=== PATIENT | male | born 1935 | race Caucasian/White ===

== ENCOUNTER → 2017-05-21 | Outpatient (CLI) | payer MEDICARE ==
[2017-05-21 17:40] LABS: HCT 47.2 % (39.0-53.0); HGB 15.1 gm/dL (13.0-17.5); MCH 32.6 pg (25.0-35.0); MCHC 31.9 g/dL (31.0-37.0); MCV 102.1 fL (80.0-100.0); Macrocytosis Slight; Platelet Count 167 k/uL (150-450); RBC 4.63 m/uL (4.30-5.90); RDW 15.1 % (11.5-15.5); WBC 5.8 k/uL (3.8-10.6)
[2017-05-21 17:54] LABS: Potassium 3.2 mmol/L (3.5-5.1)
== END | disposition home or self-care (01) ==
LOC: LABPAT 17:04
PROVIDERS: ATTEND Internal Medicine Gastroenterology
DX: Z01.812 Encounter for preprocedural laboratory examination (principal); I34.0 Nonrheumatic mitral (valve) insufficiency
CPT/HCPCS: 36415; 80051; 82565; 84520; 85027

== ENCOUNTER 2017-05-28 09:56 | Inpatient (IN) | payer MEDICARE ==
[2017-05-28] MEDS ORDERED: LORazepam 2 MG/ML INJ IV STA (10:52)
--- NOTE | 2017-05-28 10:57 | ED ---
General Adult HPI - General Chief complaint: Recheck/Abnormal Lab/Rx Stated complaint: Leg pain Time Seen by Provider: 05/28/17 10:20 Source: patient, RN notes reviewed Mode of arrival: wheelchair - History of Present Illness Initial comments: This is a 81-year-old male who states having foot pain and a right the past 2 weeks now that he has on the left and hurts to walk or to touch it. He denies any fevers chills or sweats he has ever recent history of CHF with now renal insufficiency he was on Lasix and anti-inflammatories with his kidney function apparently has declined. No trauma. He is scheduled for cardiac catheterization tomorrow. He had had edema to both lower extremities but elevation seen to help in the past but today he has a lot of pain. He states this is a 9 out of 10. No history of gout - Related Data Home Medications Medication Instructions Recorded Confirmed Aspirin 81 mg PO BID 06/01/14 05/28/17 Carvedilol [Carvedilol] 3.125 mg PO BID 06/01/14 05/28/17 Losartan/Hydrochlorothiazide 0.5 tab PO Q48H 06/01/14 05/28/17 [Losartan-Hctz 100-25 mg Tab] Multivitamin [Men's Multi-Vitamin] 0.5 tab PO DAILY 06/01/14 05/28/17 Saw [place] 320 mg PO DAILY 06/01/14 05/28/17 Simvastatin [Simvastatin] 40 mg PO Q48H 06/01/14 05/28/17 Krill Oil 1,000 mg PO DAILY 05/25/17 05/28/17 Torsemide [Demadex] 20 mg PO DAILY 05/25/17 05/28/17 Albuterol Nebulized [Ventolin 2.5 mg INHALATION RT-DAILY 05/28/17 05/28/17 Nebulized] Losartan/Hydrochlorothiazide 1 tab PO Q48H 05/28/17 05/28/17 [Losartan-Hctz 100-25 mg Tab] Simvastatin [Zocor] 20 mg PO Q48H 05/28/17 05/28/17 Vitamin B Complex 1 cap PO Q48H 05/28/17 05/28/17 Allergies Allergy/AdvReac Type Severity Reaction Status Date / Time No Known Allergies Allergy Verified 05/28/17 10:41 Review of Systems ROS Statement: Those systems with pertinent positive or pertinent negative responses have been documented in the HPI. ROS Other: All systems not noted in ROS Statement are negative. Past Medical History Past Medical History: Coronary Artery Disease (CAD), Hyperlipidemia, Hypertension, Myocardial Infarction ([place]), Osteoarthritis (OA), Prostate Disorder Additional Past Medical History / Comment(s): HAVING OCC SHORTNESS OF BREATH. SEE DR ALCAZAR H&P. HX BPH; KIDNEY STONE. states his kidney function has decreased. [employer] is the name of his defibrillator. Last Myocardial Infarction Date:: 2013 History of Any Multi-Drug Resistant Organisms: None Reported Past Surgical History: AICD, Bowel Resection, Heart Catheterization With Stent, Orthopedic Surgery Additional Past Surgical History / Comment(s): 03/2013 AICD. RT ROTATOR CUFF, RT KNEE SCOPE. cataract surgery. Past Anesthesia/Blood Transfusion Reactions: No Reported Reaction Date of Last Stent Placement:: 2001 Type of Cardiac Device: AICD Device Placement Date:: 04/17/13 Past Psychological History: No Psychological Hx Reported Smoking Status: Never smoker - Past Family History Mother Family Medical History: Cancer Additional Family Medical History / Comment(s): Breast General Exam - General Exam Comments Initial Comments: This is a well-developed well-nourished awake alert oriented 3 male General appearance: alert, in no apparent distress Head exam: Present: atraumatic, normocephalic, normal inspection Eye exam: Present: normal appearance, PERRL, EOMI. Absent: scleral icterus, conjunctival injection, periorbital swelling ENT exam: Present: normal exam, mucous membranes moist Neck exam: Present: normal inspection. Absent: tenderness, meningismus, lymphadenopathy Respiratory exam: Present: normal lung sounds bilaterally. Absent: respiratory distress, wheezes, rales, rhonchi, stridor Cardiovascular Exam: Present: regular rate, normal rhythm, normal heart sounds. Absent: systolic murmur, diastolic murmur, rubs, gallop, clicks GI/Abdominal exam: Present: soft, normal bowel sounds. Absent: distended, tenderness, guarding, rebound, rigid Extremities exam: Present: full ROM, tenderness, normal capillary refill, pedal edema, other (Erythema noted over the first metatarsal phalangeal joint and great toe.). Absent: joint swelling, calf tenderness Back exam: Present: normal inspection Neurological exam: Present: alert, oriented X3, CN II-XII intact. Absent: normal gait, motor sensory deficit Psychiatric exam: Present: normal affect, normal mood Skin exam: Present: warm, dry, intact, normal color. Absent: rash Course Vital Signs 05/28/17 05/28/17 05/28/17 10:12 12:01 13:29 Temperature 97.1 F L Pulse Rate 90 103 H 96 Respiratory 17 18 16 Rate Blood Pressure 113/73 108/57 97/70 O2 Sat by Pulse 97 94 L 91 L Oximetry 05/28/17 14:14 Temperature Pulse Rate 90 Respiratory 16 Rate Blood Pressure 95/57 O2 Sat by Pulse 96 Oximetry EKG Findings - EKG Results: EKG: interpreted by ERMD (Undetermined rhythm rate 93 QRS 158 daily since QTC of 446/554 left exodeviation nonspecific interventricular block this old lateral changes PVCs are noted.) Medical Decision Making - Medical Decision Making I did discuss the findings with the patient family members over Dr. Weems the patient will be admitted with cardiology consultation. Patient does have renal insufficiency he does have gout he does have elevated troponin and evidence of CHF with elevated BNP. - Lab Data Result diagrams: 05/28/17 11:05 05/28/17 11:05 Lab Results 05/28/17 05/28/17 05/28/17 Range/Units 11:05 11:05 11:05 WBC 10.0 (3.8-10.6) k/uL RBC 4.69 (4.30-5.90) m/uL Hgb 15.1 (13.0-17.5) gm/dL Hct 46.0 (39.0-53.0) % MCV 97.9 (80.0-100.0) fL MCH 32.2 (25.0-35.0) pg MCHC 32.9 (31.0-37.0) g/dL RDW 14.8 (11.5-15.5) % Plt Count 196 (150-450) k/uL Neutrophils % 84 % Lymphocytes % 8 % Monocytes % 6 % Eosinophils % 1 % Basophils % 0 % Neutrophils # 8.4 H (1.3-7.7) k/uL Lymphocytes # 0.8 L (1.0-4.8) k/uL Monocytes # 0.6 (0-1.0) k/uL Eosinophils # 0.1 (0-0.7) k/uL Basophils # 0.0 (0-0.2) k/uL Sodium (137-145) mmol/L Potassium (3.5-5.1) mmol/L Chloride (98-107) mmol/L Carbon Dioxide (22-30) mmol/L Anion Gap mmol/L BUN (9-20) mg/dL Creatinine (0.66-1.25) mg/dL Est GFR (MDRD) Af Amer (>60 ml/min/1.73 sqM) Est GFR (MDRD) Non-Af (>60 ml/min/1.73 sqM) Glucose (74-99) mg/dL Uric Acid (3.5-8.5) mg/dL Calcium (8.4-10.2) mg/dL Magnesium (1.6-2.3) mg/dL Total Bilirubin (0.2-1.3) mg/dL AST (17-59) U/L ALT (21-72) U/L Alkaline Phosphatase (38-126) U/L Total Creatine Kinase 42 L (55-170) U/L CK-MB (CK-2) 0.6 (0.0-2.4) ng/mL CK-MB (CK-2) Rel Index 1.4 Troponin I 0.080 H* (0.000-0.034) ng/mL NT-Pro-B Natriuret Pep 39163 pg/mL Total Protein (6.3-8.2) g/dL Albumin (3.5-5.0) g/dL 05/28/17 Range/Units 11:05 WBC (3.8-10.6) k/uL RBC (4.30-5.90) m/uL Hgb (13.0-17.5) gm/dL Hct (39.0-53.0) % MCV (80.0-100.0) fL MCH (25.0-35.0) pg MCHC (31.0-37.0) g/dL RDW (11.5-15.5) % Plt Count (150-450) k/uL Neutrophils % % Lymphocytes % % Monocytes % % Eosinophils % % Basophils % % Neutrophils # (1.3-7.7) k/uL Lymphocytes # (1.0-4.8) k/uL Monocytes # (0-1.0) k/uL Eosinophils # (0-0.7) k/uL Basophils # (0-0.2) k/uL Sodium 135 L (137-145) mmol/L Potassium 3.6 (3.5-5.1) mmol/L Chloride 89 L (98-107) mmol/L Carbon Dioxide 35 H (22-30) mmol/L Anion Gap 11 mmol/L BUN 74 H (9-20) mg/dL Creatinine 1.57 H (0.66-1.25) mg/dL Est GFR (MDRD) Af Amer 52 (>60 ml/min/1.73 sqM) Est GFR (MDRD) Non-Af 43 (>60 ml/min/1.73 sqM) Glucose 115 H (74-99) mg/dL Uric Acid 13.3 H* (3.5-8.5) mg/dL Calcium 9.3 (8.4-10.2) mg/dL Magnesium 2.1 (1.6-2.3) mg/dL Total Bilirubin 3.9 H (0.2-1.3) mg/dL AST 24 (17-59) U/L ALT 32 (21-72) U/L Alkaline Phosphatase 187 H (38-126) U/L Total Creatine Kinase (55-170) U/L CK-MB (CK-2) (0.0-2.4) ng/mL CK-MB (CK-2) Rel Index Troponin I (0.000-0.034) ng/mL NT-Pro-B Natriuret Pep pg/mL Total Protein 7.0 (6.3-8.2) g/dL Albumin 3.5 (3.5-5.0) g/dL - Radiology Data Radiology results: report reviewed (I did review the imaging there is evidence of cardiomegaly and some small pleural effusions.), image reviewed Disposition Clinical Impression: CHF (congestive heart failure), Acute gout, Elevated troponin, Chronic renal insufficiency Disposition: ADMITTED IP TO THIS [facility] Condition: Stable Referrals: Roland Cuenca MD [Primary Care Provider] - 1-2 days
[2017-05-28 11:26] LABS: Albumin 3.5 g/dL (3.5-5.0); Calcium 9.3 mg/dL (8.4-10.2); Potassium 3.6 mmol/L (3.5-5.1); Total Bilirubin 3.9 mg/dL (0.2-1.3)
[2017-05-28 11:34] LABS: Uric Acid 13.3 mg/dL (3.5-8.5)
--- NOTE | 2017-05-28 11:36 | XR ---
EXAMINATION TYPE: XR chest 2V DATE OF EXAM: 05/28/2017 COMPARISON: Prior chest x-ray March 31, 2014. HISTORY: Cough per order. TECHNIQUE: Frontal and lateral views of the chest are obtained. FINDINGS: There is chronic parenchymal change without suspicious new focal air space opacity or pneu mothorax seen. There are new tiny bilateral pleural effusions with blunting of posterior costophrenic angles The cardiac silhouette size is enlarged and more prominent versus prior. There is redemonstr ation of dual-lead pacemaker/AICD The osseous structures are demineralized. Metallic anchor right humeral head is redemonstrated. IMPRESSION: More prominent cardiomegaly with new tiny bilateral pleural effusions.
[2017-05-28 11:52] LABS: Basophils % (A) 0 %; Eosinophils # (A) 0.1 k/uL (0-0.7); Eosinophils % (A) 1 %; HGB 15.1 gm/dL (13.0-17.5); Lymphocytes # (A) 0.8 k/uL (1.0-4.8); Lymphocytes % (A) 8 %; MCH 32.2 pg (25.0-35.0); MCHC 32.9 g/dL (31.0-37.0); MCV 97.9 fL (80.0-100.0); Mean Platelet Volume 9.8; Monocytes # (A) 0.6 k/uL (0-1.0); Monocytes % (A) 6 %; Neutrophils # (A) 8.4 k/uL (1.3-7.7); Neutrophils % (A) 84 %; Platelet Count 196 k/uL (150-450); RBC 4.69 m/uL (4.30-5.90); RDW 14.8 % (11.5-15.5)
[2017-05-28 11:55] LABS: Creatine Kinase MB 0.6 ng/mL (0.0-2.4)
[2017-05-28 12:05] LABS: Troponin I 0.08 ng/mL (0.000-0.034)
[2017-05-28] MEDS ORDERED: methylPREDNISolone SOD SUCCI 125 MG/2 ML VIAL IV STA (14:56)
[2017-05-28] MEDS ORDERED: SODIUM CHLORIDE 0.9% 1,000 ML IV SCH (15:00)
[2017-05-28] MEDS ORDERED: ATORVASTATIN 10 MG TAB PO SCH (15:00)
[2017-05-28] MEDS ORDERED: LOSARTAN-HCTZ 50-12.5 MG 1 EACH TAB PO SCH (15:00)
[2017-05-28] MEDS ORDERED: TORSEMIDE 20 MG TAB PO SCH ×2 (16:00→21:00)
[2017-05-28 18:56] VITALS: BMI 23.1
[2017-05-28 20:09] LABS: Calcium 8.9 mg/dL (8.4-10.2); Potassium 3.1 mmol/L (3.5-5.1)
[2017-05-28] MEDS: ASPIRIN 81 MG PO SCH (20:26)
[2017-05-28] MEDS: CARVEDILOL 3.125 MG TAB PO SCH (20:26)
[2017-05-29] MEDS: CARVEDILOL 3.125 MG TAB PO SCH ×2 (06:30→15:13)
[2017-05-29] MEDS: predniSONE 50 MG TAB PO SCH (06:31)
[2017-05-29 06:37] LABS: Calcium 8.9 mg/dL (8.4-10.2)
[2017-05-29] MEDS ORDERED: Potassium Replacement Protocol 1 EACH MISC MISCELLANE PRN (06:48)
[2017-05-29] MEDS: ASPIRIN 81 MG PO SCH ×2 (07:07→19:49)
[2017-05-29] MEDS: POTASSIUM CHLORIDE ER 20 MEQ TAB.ER PO SCH ×2 (07:07→11:18)
[2017-05-29] MEDS: BENZOCAINE SPRAY 1 SPRAY CAN TOPICAL ONE ×2 (07:28→07:31)
[2017-05-29] MEDS ORDERED: SODIUM CHLORIDE 0.9% 500 ML IV ONE (07:29)
[2017-05-29] MEDS ORDERED: MIDAZOLAM 2 MG/2 ML VIAL IVP ONE (07:31)
--- NOTE | 2017-05-29 08:39 | ECHOT ---
TRANSESOPHAGEAL ECHOCARDIOGRAM INDICATION: Mitral regurgitation in a patient with class 4 congestive heart failure. PROCEDURE NOTE: After obtaining informed consent, transesophageal echocardiogram was performed in left lateral position using an Omni plane probe. Local and IV sedation were obtained using Xylocaine spray and intravenous Versed. Patient tolerated the procedure well without any obvious immediate complications. Patient received moderate conscious sedation and total sedation time was 15 minutes. FINDINGS: 1. MITRAL VALVE: Mitral valve shows poor coaptation and moderate to severe mitral regurgitation. Mild aortic valve is a trileaflet valve. There is mild aortic regurgitation noted. There is mild tricuspid regurgitation noted. AICD leads are noted in the right side of the heart. 2. Left ventricle appears enlarged, shows diffuse global hypokinesis with severe LV systolic dysfunction with an ejection fraction of around 15%. 3. Left atrium and the right atrium appear enlarged. The right ventricle has RV systolic function that is diminished. 4. Interatrial septum, there is no evidence of left to right shunt by color-flow Doppler or [id number] shunt by agitated contrast study. CONCLUSIONS: 1. Severe left ventricular systolic dysfunction. 2. Moderate to severe mitral regurgitation. PLAN: I am going to hold off on cardiac catheterization at this time as I am not sure how much the patient would benefit from mitral valve clip at this time. I am first going to send him for another and if he is indeed a candidate for mitral clip, we may then do a heart catheterization at that time. Otherwise, will unnecessarily be exposing him to the risk of contrast induced nephropathy. I discussed these issues with the patient and family. They understand and are agreement with the plans. MMODL / IJN: [id number] /
[2017-05-29] MEDS: ALBUTEROL NEBULIZED 2.5 MG/3 ML INHALATION SCH (09:21)
[2017-05-29] MEDS: SODIUM CHLORIDE 0.9% 1,000 ML IV SCH (10:39)
[2017-05-29] MEDS: ATORVASTATIN 20 MG TAB PO SCH (10:41)
--- NOTE | 2017-05-29 13:14 | P.HPIM ---
History of Present Illness H&P Date: 05/29/17 Chief Complaint: Left foot pain 81-year-old male who presented to the emergency room with a chief complaint of left foot pain. The history is taken mostly from the patient's and daughter who are at the bedside. Patients states that the patient began having increased lower extremity edema and redness a few weeks ago , along with pain in the right foot. Patient's states that she had her and elevate his extremities on pillows and the swelling, pain, and erythema improved. However, she states that on Sunday the patient started having pain and redness of the left foot and ankle. She states that they attempted to elevate the extremity on pillows but it did not improve the patient 's pain and the redness seemed to extend into his great toe. Family also reports that the patient has been having difficulty walking at home secondary to pain in his left foot. The patient has a history of severe LV dysfunction with mitral regurgitation. The patient has previously been on Lasix but was switched to Demadex as he was refractory to Lasix. He has a history of proximal atrial fibrillation but is not on long-term anticoagulation. He has a history of hyperlipidemia, hypertension, BPH, and osteoarthritis. The patient has had a permanent pacemaker/AICD inserted in 2013. He has a history of myocardial infarction and has underwent cardiac catheterization with stent placement. Chest x-ray: Cardiomegaly with tiny bilateral pleural effusions Laboratory data: WBC 10.0. Hemoglobin 15.1. Platelet count 196. Sodium 135. Potassium 3.6. BUN 74. Creatinine 1.57. GFR 43. Glucose 115. Magnesium 2.1. Uric acid: 13.3 Troponins: 0.080, 0.074, 0.061 BNP: 22,300 The patient was admitted to the hospital under the care of Dr. Cuenca. Consultations were placed to cardiology. The patient underwent transesophageal echocardiogram this morning with Dr. Gutierrez which revealed moderate to severe mitral regurgitation. Mild aortic regurgitation. Mild tricuspid regurgitation. Enlarged left ventricle with diffuse global hypokinesis and severe LV dysfunction with an ejection fraction around 15%. Enlarged left atrium and right atrium. Diminished function of the right ventricle. Review of Systems GENERAL: Patient denies fever. Denies chills. EYES: Denies blurred vision. Denies vision changes. Denies eye pain. EARS, NOSE, MOUTH, & THROAT: Denies headache. Denies sore throat. Denies ear pain. RESPIRATORY: Positive for shortness of breath. Denies cough. Denies sputum production. Denies hemoptysis. CARDIOVASCULAR: Denies chest pain or pressure. Denies palpitations. Denies arrhythmias. GASTROINTESTINAL: Positive for decreased appetite. Denies abdominal pain. Denies diarrhea. Denies constipation. Denies nausea. Denies vomiting. Denies heartburn. Denies blood in the stool. GENITOURINARY: Denies urinary frequency. Denies burning. Denies dysuria. Denies cloudy urine. Denies blood in the urine. MUSCULOSKELETAL: Positive for left foot and ankle pain. Denies myalgias. Denies decreased range of motion beyond patients baseline. INTEGUMENTARY: Positive for erythema to left ankle and great toe. Positive for recent bilateral lower extremity edema. Denies pruitis. Denies rash. PSYCHIATRIC: Denies suicidal or homicial ideations. ENDOCRINE: Denies weight change. Denies polydipsia. Denies polyuria. HEMATOLOGIC: Denies bleeding disorders. Past Medical History Past Medical History: Coronary Artery Disease (CAD), Hyperlipidemia, Hypertension, Myocardial Infarction ([place]), Osteoarthritis (OA), Prostate Disorder Additional Past Medical History / Comment(s): HAVING OCC SHORTNESS OF BREATH. SEE DR ALCAZAR H&P. HX BPH; KIDNEY STONE. states his kidney function has decreased. [employer] is the name of his defibrillator. Last Myocardial Infarction Date:: 2013 History of Any Multi-Drug Resistant Organisms: None Reported Past Surgical History: AICD, Bowel Resection, Heart Catheterization With Stent, Orthopedic Surgery Additional Past Surgical History / Comment(s): 03/2013 AICD. RT ROTATOR CUFF, RT KNEE SCOPE. cataract surgery. Past Anesthesia/Blood Transfusion Reactions: No Reported Reaction Date of Last Stent Placement:: 2001 Type of Cardiac Device: AICD Device Placement Date:: 04/17/13 Past Psychological History: No Psychological Hx Reported Smoking Status: Never smoker Past Alcohol Use History: Rare Past Drug Use History: None Reported - Past Family History Mother Family Medical History: Cancer Additional Family Medical History / Comment(s): Breast Medications and Allergies Home Medications Medication Instructions Recorded Confirmed Type Aspirin 81 mg PO BID 06/01/14 05/28/17 History Carvedilol [Carvedilol] 3.125 mg PO BID 06/01/14 05/28/17 History Losartan/Hydrochlorothiazide 0.5 tab PO Q48H 06/01/14 05/28/17 History [Losartan-Hctz 100-25 mg Tab] Multivitamin [Men's Multi-Vitamin] 0.5 tab PO DAILY 06/01/14 05/28/17 History Saw [place] 320 mg PO DAILY 06/01/14 05/28/17 History Simvastatin [Simvastatin] 40 mg PO Q48H 06/01/14 05/28/17 History [place] 1,000 mg PO DAILY 05/25/17 05/28/17 History Torsemide [Demadex] 20 mg PO DAILY 05/25/17 05/28/17 History Albuterol Nebulized [Ventolin 2.5 mg INHALATION RT-DAILY 05/28/17 05/28/17 History Nebulized] Losartan/Hydrochlorothiazide 1 tab PO Q48H 05/28/17 05/28/17 History [Losartan-Hctz 100-25 mg Tab] Simvastatin [Zocor] 20 mg PO Q48H 05/28/17 05/28/17 History Vitamin B Complex 1 cap PO Q48H 05/28/17 05/28/17 History Allergies Allergy/AdvReac Type Severity Reaction Status Date / Time No Known Allergies Allergy Verified 05/28/17 10:41 Physical Exam Vitals: Vital Signs Temp Pulse Pulse Pulse Resp BP BP 05/29/17 11:01 16 05/29/17 09:15 63 16 89/59 05/29/17 09:00 52 L 16 88/57 05/29/17 08:45 61 16 85/56 05/29/17 08:30 56 L 12 91/56 05/29/17 08:24 64 18 05/29/17 08:15 64 10 L 94/61 05/29/17 08:04 63 18 87/57 05/29/17 08:00 65 18 82/54 05/29/17 07:56 70 16 80/60 05/29/17 07:53 74 18 86/53 05/29/17 07:50 73 16 89/55 05/29/17 07:44 79 16 90/62 05/29/17 07:41 76 16 88/70 05/29/17 07:38 74 16 87/61 05/29/17 07:35 72 18 88/63 05/29/17 07:32 76 18 92/63 05/29/17 07:28 76 18 104/71 05/29/17 04:00 97.5 F L 56 L 16 104/64 05/29/17 00:00 71 16 100/60 05/28/17 20:00 97.0 F L 79 16 90/58 05/28/17 18:14 98.1 F 101 H 18 97/72 05/28/17 16:45 97 F L 96 18 116/62 05/28/17 16:30 96 16 98/56 05/28/17 15:01 97.1 F L 96 18 107/82 05/28/17 14:14 90 16 95/57 05/28/17 13:29 96 16 97/70 05/28/17 12:01 103 H 18 108/57 Pulse Ox 05/29/17 11:01 05/29/17 09:15 100 05/29/17 09:00 100 05/29/17 08:45 100 05/29/17 08:30 98 05/29/17 08:24 05/29/17 08:15 97 05/29/17 08:04 97 05/29/17 08:00 97 05/29/17 07:56 99 05/29/17 07:53 98 05/29/17 07:50 95 05/29/17 07:44 98 05/29/17 07:41 98 05/29/17 07:38 95 05/29/17 07:35 97 05/29/17 07:32 97 05/29/17 07:28 97 05/29/17 04:00 98 05/29/17 00:00 94 L 05/28/17 20:00 93 L 05/28/17 18:14 92 L 05/28/17 16:45 94 L 05/28/17 16:30 100 05/28/17 15:01 96 05/28/17 14:14 96 05/28/17 13:29 91 L 05/28/17 12:01 94 L Intake and Output 05/28/17 05/29/17 05/29/17 22:59 06:59 14:59 Intake Total 250 Balance 250 Intake: IV 250 Other: Voiding Method Urinal Urinal Urinal Diaper Diaper Diaper # Voids 1 1 1 Weight 71 kg 71 kg GENERAL: This is a 81-year-old male in no apparent distress at the time of examination. Pleasant and cooperative. HEENT: Head is atraumatic, normocephalic. Pupils are equal, round, and reactive to light. Sclerae anicteric. Conjunctivae are clear. Mucus membranes of the mouth are moist. Neck is supple. RESPIRATORY: Equal bilaterally with rales noted to bilateral bases. No wheezing noted. No use of accessory muscles. Patient maintaining oxygen saturation greater than 92% on 3 L. No chest wall tenderness is noted on palpation or with deep breathing. CARDIOVASCULAR: Regular rate and rhythm. S1 and S2 noted. Systolic murmur noted. Mild JVD. No S3 or S4 noted. GASTROINTESTINAL: No distention noted. Abdomen soft and round. Normal active bowel sounds auscultated x 4 quadrants. No pain or tenderness noted upon palpation. INTEGUMENTARY: Erythema noted to left ankle and left great toe. No cyanosis. No jaundice. No rashes noted. No cellulitis noted. EXTREMITIES: 1+ peripheral pulses. Trace bilateral lower extremity edema. No calf tenderness noted. NEUROLOGIC: Cranial nerves II-XII intact. PSYCHIATRIC: Awake, alert, and oriented X 3. Appropriate affect. Intact judgement and insight. Results CBC & Chem 7: 05/28/17 11:05 05/29/17 05:50 Labs: Abnormal Lab Results - Last 24 Hours (Table) 05/28/17 05/28/17 05/28/17 Range/Units 11:05 11:05 19:32 Neutrophils # 8.4 H (1.3-7.7) k/uL Lymphocytes # 0.8 L (1.0-4.8) k/uL Sodium (137-145) mmol/L Potassium (3.5-5.1) mmol/L Chloride (98-107) mmol/L Carbon Dioxide (22-30) mmol/L BUN (9-20) mg/dL Creatinine (0.66-1.25) mg/dL Glucose (74-99) mg/dL Troponin I 0.080 H* 0.074 H* (0.000-0.034) ng/mL 05/28/17 05/29/17 05/29/17 Range/Units 19:32 05:50 06:01 Neutrophils # (1.3-7.7) k/uL Lymphocytes # (1.0-4.8) k/uL Sodium 134 L 135 L (137-145) mmol/L Potassium 3.1 L 3.0 L* (3.5-5.1) mmol/L Chloride 90 L 90 L (98-107) mmol/L Carbon Dioxide 31 H 33 H (22-30) mmol/L BUN 74 H 77 H (9-20) mg/dL Creatinine 1.40 H 1.40 H (0.66-1.25) mg/dL Glucose 169 H 149 H (74-99) mg/dL Troponin I 0.061 H* (0.000-0.034) ng/mL Thrombosis Risk Factor Assmnt - Choose All That Apply Any of the Below Risk Factors Present?: Yes Other Risk Factors: Yes Each Risk Factor Represents 3 Points: Age 75 years or older Thrombosis Risk Factor Assessment Total Risk Factor Score: 3 Thrombosis Risk Factor Assessment Level: Moderate Risk Assessment and Plan Plan: ASSESSMENT: Acute exacerbation of systolic congestive heart failure, BNP 22,300, ejection fraction 15% Acute gout of left great toe and ankle, uric acid 13.3 Elevated troponins: 0.080, 0.074, 0.061, likely secondary to CHF exacerbation, no complaints of chest pain or pressure, cardiology following Moderate to severe mitral regurgitation, s/p SUMAN 05/29/2017 Hypokalemia, secondary to diuretic therapy Chronic kidney disease, stage III, GFR 43 on admission Paroxysmal atrial fibrillation, not on long-term anticoagulation as patient declined therapy History of permanent pacemaker/AICD insertion in 2013 Essential hypertension Hyperlipidemia Coronary artery disease with previous stent placement Benign prostatic hyperplasia PLAN: Dr. Parker recommends holding off on cardiac catheterization at this time and sending patient for a second opinion at [facility] to determine if patient is a candidate for mitral valve clip procedure Replace potassium per protocol Continue prednisone for gout Patient's family is requesting patient be placed on allopurinol. Educated family that allopurinol is not for use in an acute gouty attack. Patient will be placed on allopurinol when acute gout has improved and will continue prednisone at this time Consult physical therapy and occupational therapy secondary to generalized weakness Home meds as appropriate Monitor labs GI prophylaxis: Protonix 40 mg PO Daily DVT prophylaxis: Venodyne's to bilateral lower extremities Monitor vital signs and address as appropriate Discharge planning: Patient to return home when stable Further recommendations pending patient's course Nurse practitioner note has been reviewed by physician. Signing provider agrees with the documented findings, assessment, and plan of care.
[2017-05-29] MEDS ORDERED: POTASSIUM CHLORIDE ER 20 MEQ TAB.ER PO STA (14:38)
[2017-05-29] MEDS: TORSEMIDE 20 MG TAB PO SCH (14:48)
[2017-05-29] MEDS: LOSARTAN-HCTZ 50-12.5 MG 1 EACH TAB PO SCH (14:48)
[2017-05-30] MEDS: SODIUM CHLORIDE 0.9% 1,000 ML IV SCH (01:52)
[2017-05-30] MEDS: PANTOPRAZOLE 40 MG TABLET PO SCH (06:11)
[2017-05-30] MEDS: CARVEDILOL 3.125 MG TAB PO SCH ×2 (06:11→17:24)
[2017-05-30 06:53] LABS: Calcium 8.7 mg/dL (8.4-10.2); Potassium 4.2 mmol/L (3.5-5.1)
[2017-05-30] MEDS ORDERED: ATORVASTATIN 10 MG TAB PO SCH (09:00)
[2017-05-30] MEDS ORDERED: LOSARTAN-HCTZ 50-12.5 MG 1 EACH TAB PO SCH (09:00)
[2017-05-30] MEDS ORDERED: ALBUTEROL NEBULIZED 2.5 MG/3 ML INHALATION PRN (09:17)
[2017-05-30] MEDS: ALBUTEROL NEBULIZED 2.5 MG/3 ML INHALATION SCH (09:18)
--- NOTE | 2017-05-30 10:54 | P.DS ---
Providers Date of admission: 05/28/17 14:52 Expected date of discharge: 05/30/17 Attending physician: Roland Cuenca Consults: 05/28/17 14:49 Consult Physician Routine Consulting Provider: Chirag Gutierrez Consult Reason/Comments: CHF, elevated troponin, chronic renal insufficiency Do you want consulting provider notified?: Yes Primary care physician: Roland Cuenca [facility] Course: 81-year-old male who presented to the emergency room with a chief complaint of left foot pain. The history is taken mostly from the patient's and daughter who are at the bedside. Patients states that the patient began having increased lower extremity edema and redness a few weeks ago , along with pain in the right foot. Patient's states that she had her and elevate his extremities on pillows and the swelling, pain, and erythema improved. However, she states that on Sunday the patient started having pain and redness of the left foot and ankle. She states that they attempted to elevate the extremity on pillows but it did not improve the patient 's pain and the redness seemed to extend into his great toe. Family also reports that the patient has been having difficulty walking at home secondary to pain in his left foot. The patient has a history of severe LV dysfunction with mitral regurgitation. The patient has previously been on Lasix but was switched to Demadex as he was refractory to Lasix. He has a history of proximal atrial fibrillation but is not on long-term anticoagulation. He has a history of hyperlipidemia, hypertension, BPH, and osteoarthritis. The patient has had a permanent pacemaker/AICD inserted in 2013. He has a history of myocardial infarction and has underwent cardiac catheterization with stent placement. Chest x-ray: Cardiomegaly with tiny bilateral pleural effusions Laboratory data: WBC 10.0. Hemoglobin 15.1. Platelet count 196. Sodium 135. Potassium 3.6. BUN 74. Creatinine 1.57. GFR 43. Glucose 115. Magnesium 2.1. Uric acid: 13.3 Troponins: 0.080, 0.074, 0.061 BNP: 22,300 The patient was admitted to the hospital under the care of Dr. Cuenca. Consultations were placed to cardiology. The patient underwent transesophageal echocardiogram this morning with Dr. Gutierrez which revealed moderate to severe mitral regurgitation. Mild aortic regurgitation. Mild tricuspid regurgitation. Enlarged left ventricle with diffuse global hypokinesis and severe LV dysfunction with an ejection fraction around 15%. Enlarged left atrium and right atrium. Diminished function of the right ventricle. Dr. Gutierrez recommends holding off on cardiac catheterization at this time and sending patient for a second opinion at [facility] to determine if patient is a candidate for mitral valve clip procedure. The patient was started on prednisone orally for his gout. His redness and pain has improved, but not resolved at this time. The patient will be started on Allopurinol Friday June 02, 2017. The patient was deemed stable for discharge per Dr. Cuenca. A prescription was sent to the patient's preferred pharmacy for a prednisone taper of 40 mg 1 day , 30 mg 1 day, 20 mg 1 day, and 10 mg 1 day. A prescription was also sent for allopurinol 100 mg daily which the patient is to start on 06/02/2017. Additionally, a prescription for daily potassium supplementation of 10 mEq was sent to the patient's preferred pharmacy. The patient is to have a basic metabolic panel drawn in 1 week. This patient does not respond to Lasix. Please DO NOT change him from Demadex to Lasix for any reason Originally the patient was going to be discharged home with [facility]. The patient's states that she has a ramp in the garage, a hospital bed, and a commode at home. However physical therapy evaluated the patient and determined that subacute rehab was a more appropriate discharge plan. Patient and are both agreeable to subacute rehab and are requesting [facility]. Anticipate discharge this afternoon or tomorrow pending insurance authorization. DISCHARGE DIAGNOSIS: Acute exacerbation of systolic congestive heart failure, BNP 22,300, ejection fraction 15% Acute gout of left great toe and ankle, uric acid 13.3 Elevated troponins: 0.080, 0.074, 0.061, likely secondary to CHF exacerbation, no complaints of chest pain or pressure, cardiology following Moderate to severe mitral regurgitation, s/p SUMAN 05/29/2017 Hypokalemia, secondary to diuretic therapy, resolved Chronic kidney disease, stage III, GFR 43 on admission Paroxysmal atrial fibrillation, not on long-term anticoagulation as patient declined therapy History of permanent pacemaker/AICD insertion in 2013 Essential hypertension Hyperlipidemia Coronary artery disease with previous stent placement Benign prostatic hyperplasia Nurse practitioner note has been reviewed by physician. Signing provider agrees with the documented findings, assessment, and plan of care. Patient Condition at Discharge: Stable Plan - Discharge Summary Discharge Rx Participant: Yes New Discharge Prescriptions: New Allopurinol [Zyloprim] 100 mg PO DAILY #30 tablet predniSONE See Taper PO DIRECTED #10 tab Potassium Chloride ER [K-Dur 10] 10 meq PO DAILY #30 tab Continue Saw [place] 320 mg PO DAILY Losartan/Hydrochlorothiazide [Losartan-Hctz 100-25 mg Tab] 0.5 tab PO Q48H Simvastatin 40 mg PO Q48H Multivitamin [Men's Multi-Vitamin] 0.5 tab PO DAILY Carvedilol 3.125 mg PO BID Aspirin 81 mg PO BID Torsemide [Demadex] 20 mg PO DAILY Krill Oil 1,000 mg PO DAILY Vitamin B Complex 1 cap PO Q48H Albuterol Nebulized [Ventolin Nebulized] 2.5 mg INHALATION RT-DAILY Losartan/Hydrochlorothiazide [Losartan-Hctz 100-25 mg Tab] 1 tab PO Q48H Simvastatin [Zocor] 20 mg PO Q48H Discharge Medication List Aspirin 81 mg PO BID 06/01/14 [History] Carvedilol 3.125 mg PO BID 06/01/14 [History] Losartan/Hydrochlorothiazide [Losartan-Hctz 100-25 mg Tab] 0.5 tab PO Q48H 06/01 [History] Multivitamin [Men's Multi-Vitamin] 0.5 tab PO DAILY 06/01/14 [History] Saw [place] 320 mg PO DAILY 06/01/14 [History] Simvastatin 40 mg PO Q48H 06/01/14 [History] Krill Oil 1,000 mg PO DAILY 05/25/17 [History] Torsemide [Demadex] 20 mg PO DAILY 05/25/17 [History] Albuterol Nebulized [Ventolin Nebulized] 2.5 mg INHALATION RT-DAILY 05/28/17 [ History] Losartan/Hydrochlorothiazide [Losartan-Hctz 100-25 mg Tab] 1 tab PO Q48H [History] Simvastatin [Zocor] 20 mg PO Q48H 05/28/17 [History] Vitamin B Complex 1 cap PO Q48H 05/28/17 [History] Allopurinol [Zyloprim] 100 mg PO DAILY #30 tablet 05/30/17 [Rx] Potassium Chloride ER [K-Dur 10] 10 meq PO DAILY #30 tab 05/30/17 [Rx] predniSONE See Taper PO DIRECTED #10 tab 05/30/17 [Rx] Follow up Appointment(s)/Referral(s): Roland Cuenca MD [Primary Care Provider] - 2 Weeks (Please make appointment to see Dr. Cuenca AFTER patient's appointment with Dr. Gutierrez) Chirag Guteirrez MD [STAFF PHYSICIAN] - 1 Week Ambulatory/Diagnostic Orders: Basic Metabolic Panel [LAB.AMB] Time Frame: 1 Week, Location: Determined By Patient Activity/Diet/Wound Care/Special Instructions: DO NOT START ALLOPURINOL UNTIL FRIDAY JUNE 02, 2017 Discharge Disposition: HOME WITH HOME HEALTH SERVICES
[2017-05-30] MEDS: predniSONE 50 MG TAB PO SCH (12:00)
[2017-05-30] MEDS: ASPIRIN 81 MG PO SCH ×2 (12:00→21:16)
[2017-05-30] MEDS: TORSEMIDE 20 MG TAB PO SCH (12:00)
--- NOTE | 2017-05-30 12:38 | P.PN ---
Subjective Progress Note Date: 05/30/17 This is a pleasant 81-year-old gentleman with history of chronic systolic congestive heart failure, severe mitral regurgitation, ischemic cardiomyopathy, hypertension, hyperlipidemia, prior AICD implantation, patient was scheduled to have a SUMAN and cardiac catheterization performed as an outpatient, however he was admitted to the hospital on the day these were scheduled. Dr. Parker did perform a SUMAN yesterday, which revealed moderate to severe mitral regurgitation with severe left ventricular systolic function. Dr. Parker decided to hold off on cardiac catheterization at this time, he wishes first to get an opinion regarding mitral valve clip. Patient was seen and examined this morning, breathing is stable, denies any chest discomfort. Blood pressure 94/60 with a heart rate in the 60s, 99% on 2 L of oxygen. Sodium 133, potassium 4.2, BUN 90, creatinine 1.4. Patient was evaluated by rehab, patient and family are considering going to short-term rehab at [facility]. Objective - Vital Signs Vital signs: Vital Signs Temp 95.5 F L 05/30/17 08:30 Pulse 62 05/30/17 08:30 Resp 18 05/30/17 08:30 BP 93/60 05/30/17 08:30 Pulse Ox 99 05/30/17 08:30 Intake & Output 05/29/17 05/30/17 05/30/17 18:59 06:59 18:59 Intake Total 250 480 380 Output Total 200 280 Balance 50 480 100 Weight 71 kg 70 kg Intake: IV 250 300 200 Sodium Chloride 0.9% 1, 300 200 000 ml @ 50 mls/hr IV . Q20H [facility] Rx#:[id number] Oral 180 180 Output: Urine 200 280 Other: Voiding Method Urinal Urinal Diaper Diaper # Voids 1 1 1 # Bowel Movements 1 - Exam PHYSICAL EXAMINATION: HEENT: Head is atraumatic, normocephalic. Pupils equal, round. Neck is supple. There is no elevated jugular venous pressure. HEART EXAMINATION: Heart S1 and S2 systolic murmur is heard at the apex. CHEST EXAMINATION: Lungs are clear to auscultation and precussion. No chest wall tenderness is noted on palpation or with deep breathing. ABDOMEN: Soft, nontender. Bowel sounds are heard. No organomegaly noted. EXTREMITIES: 2+ peripheral pulses with no evidence of peripheral edema and no calf tenderness noted. NEUROLOGIC patient is awake, alert and oriented -3. . - Labs CBC & Chem 7: 05/28/17 11:05 05/30/17 05:59 Labs: Abnormal Lab Results - Last 24 Hours (Table) 05/29/17 05/30/17 Range/Units 13:46 05:59 Sodium 133 L (137-145) mmol/L Potassium 3.3 L (3.5-5.1) mmol/L Chloride 94 L (98-107) mmol/L BUN 90 H* (9-20) mg/dL Creatinine 1.40 H (0.66-1.25) mg/dL Glucose 147 H (74-99) mg/dL Assessment and Plan Plan: Assessment and plan #1 moderate to severe mitral stenosis status post SUMAN #2 ischemic cardiomyopathy with prior AICD implantation #3 hypertension #4 hyperlipidemia # 5 acute on chronic renal insufficiency Plan From cardiology's perspective, patient may be able to be discharged once cleared by primary. We will make him a follow-up appointment to see Dr. Parker in the office post discharge, consultation will be requested at that time for evaluation for mitral clip further recommendations will be based on that and how the patient progresses. DNP note has been reviewed, I agree with a documented findings and plan of care. Patient was seen and examined.
[2017-05-31 06:30] VITALS: RESP 17
[2017-05-31] MEDS: CARVEDILOL 3.125 MG TAB PO SCH (06:34)
[2017-05-31] MEDS: PANTOPRAZOLE 40 MG TABLET PO SCH (06:34)
[2017-05-31 07:11] LABS: Calcium 8.5 mg/dL (8.4-10.2)
[2017-05-31] MEDS: LOSARTAN-HCTZ 50-12.5 MG 1 EACH TAB PO SCH (08:12)
[2017-05-31] MEDS: TORSEMIDE 20 MG TAB PO SCH (08:12)
[2017-05-31] MEDS: ASPIRIN 81 MG PO SCH (08:12)
[2017-05-31] MEDS: ATORVASTATIN 20 MG TAB PO SCH (08:12)
[2017-05-31 08:18] VITALS: BP 104/62; PULSE 62; TEMP 97.6
[2017-05-31] MEDS ORDERED: predniSONE 20 MG TAB PO SCH (09:00)
== END 2017-05-31 10:51 | DRG 291 ==
LOC: EC 09:56 → 6SEL 14:52
PROVIDERS: ADMIT Family Medicine; ATTEND Family Medicine
PROC: B246ZZ4 Ultrasonography of Right and Left Heart, Transesophageal (ICD-10-PCS; principal; 2017-05-29 07:30)
DX: I13.0 Hypertensive heart and chronic kidney disease with heart failure and stage 1 through stage 4 chronic kidney disease, or unspecified chronic kidney disease (principal); I50.23 Acute on chronic systolic (congestive) heart failure; I08.3 Combined rheumatic disorders of mitral, aortic and tricuspid valves; I48.0 Paroxysmal atrial fibrillation; N18.3 Chronic kidney disease, stage 3 (moderate); I25.5 Ischemic cardiomyopathy; I25.10 Atherosclerotic heart disease of native coronary artery without angina pectoris; I25.2 Old myocardial infarction; E78.5 Hyperlipidemia, unspecified; M10.9 Gout, unspecified; M19.91 Primary osteoarthritis, unspecified site; N40.0 Benign prostatic hyperplasia without lower urinary tract symptoms; Z79.82 Long term (current) use of aspirin; Z79.899 Other long term (current) drug therapy; Z95.5 Presence of coronary angioplasty implant and graft; Z95.810 Presence of automatic (implantable) cardiac defibrillator; Z87.442 Personal history of urinary calculi
CPT/HCPCS: 36415; 71046; 80048; 80051; 80053; 82550; 82553; 82565; 83735; 83880; 84132; 84484; 84520; 84550; 85025; 93005; 93312; 93320; 93325; 96374; 96375; 99284

== ENCOUNTER → 2017-05-28 | Outpatient (CLI) | payer MEDICARE ==
[2017-05-28 10:24] LABS: Potassium 2.8 mmol/L (3.5-5.1)
== END | disposition home or self-care (01) ==
LOC: LABWHC1 09:35
PROVIDERS: ATTEND Internal Medicine Cardiovascular Disease
DX: I50.22 Chronic systolic (congestive) heart failure (principal)
CPT/HCPCS: 36415; 80051; 82565; 84520

== ENCOUNTER 2017-07-31 14:33 | Inpatient (IN) | payer MEDICARE ==
[2017-07-31 15:04] LABS: Glucose,Whole Blood 152 mg/dL (75-99)
[2017-07-31] MEDS ORDERED: SODIUM CHLORIDE 0.9% 500 ML IV STA (15:15)
--- NOTE | 2017-07-31 15:20 | ED ---
General Adult HPI - General Chief complaint: Neuro Symptoms/Deficit Stated complaint: left arm numbness Time Seen by Provider: 07/31/17 14:40 Source: patient, family, RN notes reviewed Mode of arrival: wheelchair Limitations: no limitations - History of Present Illness Initial comments: This is an 82-year-old male presents emergency Department starting to have some numbness and was uncoordinated with the left hand starting at about 11:00 this morning. Patient has some left-sided facial droop as well. Patient denies any speech problems. Patient denies any real problem is. Patient denies headache patient denies any lower extremity issues. Patient denies any chest pain palpitations difficulty breathing or shortness of breath. Patient denies any recent fever chills or cough. Patient denies any recent injury or trauma. Patient denies being on any blood thinners. - Related Data Home Medications Medication Instructions Recorded Confirmed Aspirin 81 mg PO DAILY 06/01/14 07/31/17 Carvedilol 3.125 mg PO BID 06/01/14 07/31/17 Multivitamin [Men's Multi-Vitamin] 1 tab PO DAILY 06/01/14 07/31/17 Saw [place] 320 mg PO DAILY 06/01/14 07/31/17 Krill Oil 1,000 mg PO BID 05/25/17 07/31/17 Torsemide [Demadex] 20 mg PO DAILY 05/25/17 07/31/17 Simvastatin [Zocor] 20 mg PO HS 05/28/17 07/31/17 Vitamin B Complex 1 cap PO Q48H 05/28/17 07/31/17 Apixaban [Eliquis] 2.5 mg PO BID 07/31/17 07/31/17 Nitroglycerin Sl Tabs [Nitrostat] 0.4 mg SUBLINGUAL Q5M PRN 07/31/17 07/31/17 Sacubitril/Valsartan [Entresto 24 1 tab PO BID 07/31/17 07/31/17 mg-26 mg Tablet] Ticagrelor [Brilinta] 90 mg PO BID 07/31/17 07/31/17 Ubidecarenone [Co Q-10] 100 mg PO DAILY 07/31/17 07/31/17 Previous Rx's Medication Instructions Recorded Allopurinol [Zyloprim] 100 mg PO DAILY #30 tablet 05/30/17 Allergies Allergy/AdvReac Type Severity Reaction Status Date / Time No Known Allergies Allergy Verified 07/31/17 15:08 Review of Systems ROS Statement: Those systems with pertinent positive or pertinent negative responses have been documented in the HPI. ROS Other: All systems not noted in ROS Statement are negative. Past Medical History Past Medical History: Coronary Artery Disease (CAD), Hyperlipidemia, Hypertension, Myocardial Infarction (MD), Osteoarthritis (OA), Prostate Disorder Additional Past Medical History / Comment(s): HAVING OCC SHORTNESS OF BREATH. SEE DR ALCAZAR H&P. HX BPH; KIDNEY STONE. states his kidney function has decreased. [employer] is the name of his defibrillator. Last Myocardial Infarction Date:: 2013 History of Any Multi-Drug Resistant Organisms: None Reported Past Surgical History: AICD, Bowel Resection, Heart Catheterization With Stent, Orthopedic Surgery Additional Past Surgical History / Comment(s): 03/2013 AICD. RT ROTATOR CUFF, RT KNEE SCOPE. cataract surgery. recent heart cath completed at [facility] 2017 Past Anesthesia/Blood Transfusion Reactions: No Reported Reaction Date of Last Stent Placement:: 2001 Type of Cardiac Device: AICD Device Placement Date:: 04/17/13 Past Psychological History: No Psychological Hx Reported Smoking Status: Never smoker Past Alcohol Use History: Rare Past Drug Use History: None Reported - Past Family History Mother Family Medical History: Cancer Additional Family Medical History / Comment(s): Breast General Exam - General Exam Comments Initial Comments: GENERAL: Patient is well-developed and well-nourished. Patient is nontoxic and well- hydrated and is in no acute distress. ENT: Neck is soft and supple. No significant lymphadenopathy is noted. Oropharynx is clear. Moist mucous membranes. Neck has full range of motion without eliciting any pain. EYES: The sclera were anicteric and conjunctiva were pink and moist. Extraocular movements were intact and pupils were equal round and reactive to light. Eyelids were unremarkable. PULMONARY: Unlabored respirations. Good breath sounds bilaterally. No audible rales rhonchi or wheezing was noted. CARDIOVASCULAR: Patient has no irregular heartbeat. ABDOMEN: Soft and nontender with normal bowel sounds. No palpable organomegaly was noted. There is no palpable pulsatile mass. SKIN: Skin is clear with no lesions or rashes and otherwise unremarkable. NEUROLOGIC: Patient is alert and oriented x3. Cranial nerves II through XII are grossly intact. Motor and sensory are also intact. Normal speech, volume and content. She smile is asymmetrical with drooping on the left. Cerebellar testing finger to nose with the left hand is off compared to the right hand. MUSCULOSKELETAL: Normal extremities with adequate strength and full range of motion. No lower extremity swelling or edema. No calf tenderness. LYMPHATICS: No significant lymphadenopathy is noted PSYCHIATRIC: Limitations: no limitations Course Vital Signs 07/31/17 07/31/17 14:40 15:49 Temperature 97 F L Pulse Rate 72 86 Respiratory 18 20 Rate Blood Pressure 117/75 108/71 O2 Sat by Pulse 98 100 Oximetry Medical Decision Making - Medical Decision Making EKG shows EKG shows undetermined rhythm with multiple PVCs at a rate of 91 bpm QRS is on a 52 QT interval [address] of the brain shows no acute abnormality. I spoke with Dr. Cuenca and he accepted the admission admitted and I consult the neurologist - Lab Data Result diagrams: 07/31/17 15:11 07/31/17 15:11 Lab Results 07/31/17 07/31/17 07/31/17 Range/Units 15:03 15:11 15:11 WBC 5.1 (3.8-10.6) k/uL RBC 3.43 L (4.30-5.90) m/uL Hgb 11.9 L (13.0-17.5) gm/dL Hct 35.7 L (39.0-53.0) % MCV 103.9 H (80.0-100.0) fL MCH 34.6 (25.0-35.0) pg MCHC 33.3 (31.0-37.0) g/dL RDW 15.4 (11.5-15.5) % Plt Count 133 L (150-450) k/uL Neutrophils % 64 % Lymphocytes % 23 % Monocytes % 6 % Eosinophils % 3 % Basophils % 1 % Neutrophils # 3.3 (1.3-7.7) k/uL Lymphocytes # 1.2 (1.0-4.8) k/uL Monocytes # 0.3 (0-1.0) k/uL Eosinophils # 0.2 (0-0.7) k/uL Basophils # 0.0 (0-0.2) k/uL Macrocytosis Moderate PT (9.0-12.0) sec INR (<1.2) APTT (22.0-30.0) sec Sodium (137-145) mmol/L Potassium (3.5-5.1) mmol/L Chloride (98-107) mmol/L Carbon Dioxide (22-30) mmol/L Anion Gap mmol/L BUN (9-20) mg/dL Creatinine (0.66-1.25) mg/dL Est GFR (CKD-EPI)AfAm (>60 ml/min/1.73 sqM) Est GFR (CKD-EPI)NonAf (>60 ml/min/1.73 sqM) Glucose (74-99) mg/dL POC Glucose (mg/dL) 152 H (75-99) mg/dL POC Glu Records Technician Irma Sena Calcium (8.4-10.2) mg/dL Total Bilirubin (0.2-1.3) mg/dL AST (17-59) U/L ALT (21-72) U/L Alkaline Phosphatase (38-126) U/L Total Creatine Kinase 41 L (55-170) U/L CK-MB (CK-2) 1.3 (0.0-2.4) ng/mL CK-MB (CK-2) Rel Index 3.2 Troponin I 0.017 (0.000-0.034) ng/mL Total Protein (6.3-8.2) g/dL Albumin (3.5-5.0) g/dL 18 07/31/17 Range/Units 15:11 15:11 WBC (3.8-10.6) k/uL RBC (4.30-5.90) m/uL Hgb (13.0-17.5) gm/dL Hct (39.0-53.0) % MCV (80.0-100.0) fL MCH (25.0-35.0) pg MCHC (31.0-37.0) g/dL RDW (11.5-15.5) % Plt Count (150-450) k/uL Neutrophils % % Lymphocytes % % Monocytes % % Eosinophils % % Basophils % % Neutrophils # (1.3-7.7) k/uL Lymphocytes # (1.0-4.8) k/uL Monocytes # (0-1.0) k/uL Eosinophils # (0-0.7) k/uL Basophils # (0-0.2) k/uL Macrocytosis PT 14.8 H (9.0-12.0) sec INR 1.6 H (<1.2) APTT 30.4 H (22.0-30.0) sec Sodium 142 (137-145) mmol/L Potassium 3.8 (3.5-5.1) mmol/L Chloride 99 (98-107) mmol/L Carbon Dioxide 25 (22-30) mmol/L Anion Gap 18 mmol/L BUN 67 H (9-20) mg/dL Creatinine 2.30 H (0.66-1.25) mg/dL Est GFR (CKD-EPI)AfAm 30 (>60 ml/min/1.73 sqM) Est GFR (CKD-EPI)NonAf 26 (>60 ml/min/1.73 sqM) Glucose 140 H (74-99) mg/dL POC Glucose (mg/dL) (75-99) mg/dL POC Glu Records Technician ID Calcium 9.7 (8.4-10.2) mg/dL Total Bilirubin 1.8 H (0.2-1.3) mg/dL AST 21 (17-59) U/L ALT 25 (21-72) U/L Alkaline Phosphatase 165 H (38-126) U/L Total Creatine Kinase (55-170) U/L CK-MB (CK-2) (0.0-2.4) ng/mL CK-MB (CK-2) Rel Index Troponin I (0.000-0.034) ng/mL Total Protein 6.7 (6.3-8.2) g/dL Albumin 4.1 (3.5-5.0) g/dL Disposition Clinical Impression: Cerebrovascular accident Disposition: ADMITTED IP TO THIS HOSP Referrals: Roland Cuenca MD [Primary Care Provider] - 1-2 days Time of Disposition: 16:03
[2017-07-31 15:29] LABS: Basophils % (A) 1 %; Eosinophils # (A) 0.2 k/uL (0-0.7); Eosinophils % (A) 3 %; HCT 35.7 % (39.0-53.0); HGB 11.9 gm/dL (13.0-17.5); Lymphocytes # (A) 1.2 k/uL (1.0-4.8); Lymphocytes % (A) 23 %; MCH 34.6 pg (25.0-35.0); MCHC 33.3 g/dL (31.0-37.0); MCV 103.9 fL (80.0-100.0); Macrocytosis Moderate; Mean Platelet Volume 9.5; Monocytes # (A) 0.3 k/uL (0-1.0); Monocytes % (A) 6 %; Neutrophils # (A) 3.3 k/uL (1.3-7.7); Neutrophils % (A) 64 %; Platelet Count 133 k/uL (150-450); RBC 3.43 m/uL (4.30-5.90); RDW 15.4 % (11.5-15.5); WBC 5.1 k/uL (3.8-10.6)
[2017-07-31 15:37] LABS: INR 1.6 (<1.2); Partial Thromboplastin Time 30.4 sec (22.0-30.0); Prothrombin Time 14.8 sec (9.0-12.0)
[2017-07-31 15:39] LABS: Albumin 4.1 g/dL (3.5-5.0); Calcium 9.7 mg/dL (8.4-10.2); Potassium 3.8 mmol/L (3.5-5.1); Total Bilirubin 1.8 mg/dL (0.2-1.3); Total Protein 6.7 g/dL (6.3-8.2)
--- NOTE | 2017-07-31 15:43 | CT ---
EXAMINATION TYPE: CT brain wo con for TPA DATE OF EXAM: 07/31/2017 COMPARISON: NONE HISTORY: Left arm numbness. CT DLP: 760.[address] of the brain was performed. The ventricles, basal cisterns and sulci overlying the cerebral convexities demonstrate mild enlargem ent. There is no evidence for intracranial hemorrhage or sulcal effacement. There is decreased attenuation about the periventricular white matter and deep white matter of both c erebral hemispheres, compatible with chronic small vessel ischemia. Differential diagnosis does inclu de demyelination. No mass effects are seen.No midline shift. Osseous calvarium is intact. If symptoms persist consider MRI. IMPRESSION: 1. Age related atrophic and chronic small vessel ischemic change without acute intracranial process s een at this time.
--- NOTE | 2017-07-31 15:45 | XR ---
EXAMINATION TYPE: XR chest 2V DATE OF EXAM: 07/31/2017 COMPARISON: 05/28/2017 HISTORY: 82-year-old male confusion, altered mental status TECHNIQUE: Frontal and lateral views FINDINGS: Similar moderate cardiomegaly. Atherosclerotic arch calcifications. Mild diffuse interstitial promine nce is unchanged. No significant pleural effusions. Left anterior chest wall AICD generator with righ t atrial and right ventricular leads. 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 IMPRESSION: Moderate cardiomegaly persists. There are chronic changes without acute process identified.
[2017-07-31] MEDS ORDERED: SODIUM CHLORIDE 0.9% 500 ML IV ONE (16:01)
[2017-07-31] MEDS ORDERED: ASPIRIN 325 MG TAB PO STA (16:03)
[2017-07-31 16:04] LABS: Creatine Kinase MB 1.3 ng/mL (0.0-2.4); Troponin I 0.017 ng/mL (0.000-0.034)
[2017-07-31] MEDS ORDERED: NITROGLYCERIN SL TABS 0.4 MG TAB SUBLINGUAL PRN (21:27)
[2017-07-31] MEDS ORDERED: CYANOCOBALAMIN-FA-PYRIDOXINE 1 EACH TAB PO SCH (21:30)
[2017-07-31] MEDS: SACUBITRIL/VALSARTAN 24 MG-26 MG TABLET PO SCH (22:12)
[2017-07-31] MEDS: ATORVASTATIN 10 MG TAB PO SCH (22:12)
[2017-07-31] MEDS: CARVEDILOL 3.125 MG TAB PO SCH (22:12)
[2017-07-31] MEDS: APIXABAN 2.5 MG TABLET PO SCH (22:12)
[2017-07-31] MEDS: TICAGRELOR 90 MG TAB PO SCH (22:13)
[2017-08-01 03:09] LABS: Cholesterol 110 mg/dL (<200); HDL Cholesterol 40 mg/dL (40-60); LDL Cholesterol,Calculated 52 mg/dL (0-99); Triglycerides 90 mg/dL (<150)
[2017-08-01] MEDS: CARVEDILOL 3.125 MG TAB PO SCH (06:26)
[2017-08-01] MEDS: APIXABAN 2.5 MG TABLET PO SCH (08:35)
[2017-08-01] MEDS: SACUBITRIL/VALSARTAN 24 MG-26 MG TABLET PO SCH ×2 (08:35→20:16)
[2017-08-01] MEDS: TICAGRELOR 90 MG TAB PO SCH (08:35)
[2017-08-01] MEDS: ALLOPURINOL 100 MG TAB PO SCH (08:35)
[2017-08-01] MEDS: TORSEMIDE 20 MG TAB PO SCH (08:35)
[2017-08-01] MEDS ORDERED: NON-FORMULARY DRUG (Ubidecarenone [Co Q-10] 100 MG) PO SCH (09:00)
[2017-08-01] MEDS ORDERED: KRILL OIL 1000 MG PO SCH (09:00)
[2017-08-01] MEDS ORDERED: ASPIRIN 325 MG TAB PO SCH (09:00)
[2017-08-01] MEDS ORDERED: SAW PALMETTO 320 MG PO SCH (09:00)
--- NOTE | 2017-08-01 09:27 | P.HPIM ---
History of Present Illness H&P Date: 08/01/17 Chief Complaint: left upper extremity weakness 82-year-old male who presented to the emergency room with a chief complaint of left upper extremity weakness. The patient states he was going about his normal daily activities until the afternoon when his left arm became "clumsy". The patient is right handed but was trying to hop picker items and perform tasks with his left hand and he was unable to do so. He reports numbness of the distal portion of arm and hand. He denies any difficulty with his speech or swallowing. He denies weakness, numbness, or tingling to left lower extremity or right side of his body. Denies shortness of breath or chest pain. The patient was recently hospitalized from 05/28/2017 to 05/30/2017 for CHF exacerbation and gout. The patient underwent a SUMAN with Dr. Parker during hospitalization which revealed moderate to severe mitral regurgitation, mild aortic regurgitation, and mild tricuspid regurgitation. Enlarged left ventricle with diffuse global hypokinesis and severe LV dysfunction with ejection fraction around 15%. The patient was transferred to [facility] to be evaluated for possible mitral valve clip procedure. The patient states he underwent cardiac catheterization at that time and was found to have a 90% occlusion and a stent placement. The patient does know the exact vessel. He states he did not have his mitral valve repaired and was told they would "watch it". The patient has a history of severe LV dysfunction with mitral regurgitation. The patient was previously on Lasix but was switched to Demadex as he was refractory to Lasix. He is a history of paroxysmal atrial fibrillation. He also has a history of hyperlipidemia, hypertension, BPH, and osteoarthritis. The patient has a permanent pacemaker/AICD inserted in 2013. Chest x-ray: Moderate cardiomegaly persist. There are chronic changes without acute process identified. CT brain: Age related atrophic and chronic small vessel ischemic changes without acute intracranial process EKG: Atrial fibrillation with PVCs. Rate 91. Laboratory data: WBC 5.1. Hemoglobin 11.9. Platelet count 133. Sodium 142. Potassium 3.8. BUN 67. Creatinine 2.30. Glucose 140. AST 21. T 25. Alkaline phosphatase 165. Troponin: 0.017 Lipid panel: Triglycerides 90, cholesterol 110, LDL 52, HDL 40 The patient was admitted to the hospital under the care of Dr. Cuenca. Consultations were placed to neurology. Review of Systems GENERAL: Patient denies fever. Denies chills. EYES: Denies blurred vision. Denies vision changes. Denies eye pain. EARS, NOSE, MOUTH, & THROAT: Denies headache. Denies sore throat. Denies ear pain. RESPIRATORY: Denies cough. Denies shortness of breath. Denies sputum production. Denies hemoptysis. CARDIOVASCULAR: Positive for atrial fibrillation. Denies chest pain or pressure. Denies palpitations. GASTROINTESTINAL: Denies abdominal pain. Denies diarrhea. Denies constipation. Denies nausea. Denies vomiting. Denies heartburn. Denies blood in the stool. GENITOURINARY: Denies urinary frequency. Denies burning. Denies dysuria. Denies cloudy urine. Denies blood in the urine. MUSCULOSKELETAL: Positive for left upper extremity weakness with associated numbness. Denies myalgias. Denies joint swelling. INTEGUMENTARY: Denies pruitis. Denies rash. PSYCHIATRIC: Denies suicidal or homicial ideations. ENDOCRINE: Denies weight change. Denies polydipsia. Denies polyuria. HEMATOLOGIC: Denies bleeding disorders. Past Medical History Past Medical History: Atrial Fibrillation, Coronary Artery Disease (CAD), Heart Failure, Hyperlipidemia, Hypertension, Myocardial Infarction ([place]), Osteoarthritis (OA), Prostate Disorder Additional Past Medical History / Comment(s): HAVING OCC SHORTNESS OF BREATH. SEE DR ALCAZAR H&P. HX BPH; KIDNEY STONE. states his kidney function has decreased. [employer] is the name of his defibrillator. Last Myocardial Infarction Date:: 2013 History of Any Multi-Drug Resistant Organisms: None Reported Past Surgical History: AICD, Bowel Resection, Heart Catheterization With Stent, Orthopedic Surgery Additional Past Surgical History / Comment(s): 03/2013 AICD. RT ROTATOR CUFF, RT KNEE SCOPE. cataract surgery. recent heart cath completed at [facility] 2017 Past Anesthesia/Blood Transfusion Reactions: No Reported Reaction Date of Last Stent Placement:: 2001 Type of Cardiac Device: AICD Device Placement Date:: 04/17/13 Past Psychological History: No Psychological Hx Reported Smoking Status: Never smoker Past Alcohol Use History: Rare Past Drug Use History: None Reported - Past Family History Mother Family Medical History: Cancer Additional Family Medical History / Comment(s): Breast Medications and Allergies Home Medications Medication Instructions Recorded Confirmed Type Aspirin 81 mg PO DAILY 06/01/14 07/31/17 History Carvedilol 3.125 mg PO BID 06/01/14 07/31/17 History Multivitamin [Men's Multi-Vitamin] 1 tab PO DAILY 06/01/14 07/31/17 History Saw Adams 320 mg PO DAILY 06/01/14 07/31/17 History Krill Oil 1,000 mg PO BID 05/25/17 07/31/17 History Torsemide [Demadex] 20 mg PO DAILY 05/25/17 07/31/17 History Simvastatin [Zocor] 20 mg PO HS 05/28/17 07/31/17 History Vitamin B Complex 1 cap PO Q48H 05/28/17 07/31/17 History Allopurinol [Zyloprim] 100 mg PO DAILY #30 tablet 05/30/17 07/31/17 Rx Apixaban [Eliquis] 2.5 mg PO BID 07/31/17 07/31/17 History Nitroglycerin Sl Tabs [Nitrostat] 0.4 mg SUBLINGUAL Q5M PRN 07/31/17 07/31/17 History Sacubitril/Valsartan [Entresto 24 1 tab PO BID 07/31/17 07/31/17 History mg-26 mg Tablet] Ticagrelor [Brilinta] 90 mg PO BID 07/31/17 07/31/17 History Ubidecarenone [Co Q-10] 100 mg PO DAILY 07/31/17 07/31/17 History Allergies Allergy/AdvReac Type Severity Reaction Status Date / Time No Known Allergies Allergy Verified 07/31/17 15:08 Physical Exam Vitals: Vital Signs Temp Pulse Pulse Resp BP BP Pulse Ox 08/01/17 03:50 105 H 18 08/01/17 03:49 97.6 F 105 H 18 113/65 94 L 08/01/17 00:00 97.4 F L 99 18 110/83 97 07/31/17 20:00 96.7 F L 94 18 109/65 100 07/31/17 18:03 20 108/72 99 07/31/17 17:03 18 113/71 100 07/31/17 16:03 18 95/74 94 L 07/31/17 15:49 86 20 108/71 100 07/31/17 14:40 97 F L 72 18 117/75 98 Intake and Output 07/31/17 08/01/17 08/01/17 22:59 06:59 14:59 Intake Total 10 10 236 Balance 10 10 236 Intake: IV 10 10 0.9 10 10 Oral 236 Other: Voiding Method Toilet Toilet # Voids 200 2 Weight 70.307 kg 73.1 kg GENERAL: This is a 82-year-old male in no apparent distress at the time of examination. Pleasant and cooperative. HEENT: Slight left sided facial droop present with left flattened nasolabial fold. Tongue deviates to the right. Head is atraumatic, normocephalic. Pupils are equal, round, and reactive to light. Sclerae anicteric. Conjunctivae are clear. Mucus membranes of the mouth are moist. Neck is supple. RESPIRATORY: Clear to ausculation. No wheezes, rales, or rhonchi. No use of accessory muscles. Patient maintaining oxygen saturation greater than 92%. No chest wall tenderness is noted on palpation or with deep breathing. CARDIOVASCULAR: Irregular rhythm. dental surgery doctor reveals atrial fibrillation. S1 and S2 noted. Systolic murmur auscultated. No JVD noted. No S3 or S4 noted. GASTROINTESTINAL: No distention noted. Abdomen soft and round. Normal active bowel sounds auscultated x 4 quadrants. No pain or tenderness noted upon palpation. INTEGUMENTARY: No cyanosis. No jaundice. No rashes noted. No cellulitis noted. EXTREMITIES: 2+ peripheral pulses. No evidence of peripheral edema. No calf tenderness noted. NEUROLOGIC: Left upper extremity weakness noted. Motor strength 4/5. Motor strength intact to right upper arm and bilateral lower extremities. Slight left sided facial droop presented with left flattened nasolabial fold. When patient asked to stick out his tongue, tongue deviates to the right. PSYCHIATRIC: Awake, alert, and oriented X 3. Appropriate affect. Intact judgement and insight. Results CBC & Chem 7: 07/31/17 15:11 08/01/17 10:31 Labs: Abnormal Lab Results - Last 24 Hours (Table) 07/31/17 07/31/17 07/31/17 Range/Units 15:03 15:11 15:11 RBC 3.43 L (4.30-5.90) m/uL Hgb 11.9 L (13.0-17.5) gm/dL Hct 35.7 L (39.0-53.0) % MCV 103.9 H (80.0-100.0) fL Plt Count 133 L (150-450) k/uL PT (9.0-12.0) sec INR (<1.2) APTT (22.0-30.0) sec BUN (9-20) mg/dL Creatinine (0.66-1.25) mg/dL Glucose (74-99) mg/dL POC Glucose (mg/dL) 152 H (75-99) mg/dL Total Bilirubin (0.2-1.3) mg/dL Alkaline Phosphatase (38-126) U/L Total Creatine Kinase 41 L (55-170) U/L 07/31/17 07/31/17 Range/Units 15:11 15:11 RBC (4.30-5.90) m/uL Hgb (13.0-17.5) gm/dL Hct (39.0-53.0) % MCV (80.0-100.0) fL Plt Count (150-450) k/uL PT 14.8 H (9.0-12.0) sec INR 1.6 H (<1.2) APTT 30.4 H (22.0-30.0) sec BUN 67 H (9-20) mg/dL Creatinine 2.30 H (0.66-1.25) mg/dL Glucose 140 H (74-99) mg/dL POC Glucose (mg/dL) (75-99) mg/dL Total Bilirubin 1.8 H (0.2-1.3) mg/dL Alkaline Phosphatase 165 H (38-126) U/L Total Creatine Kinase (55-170) U/L Thrombosis Risk Factor Assmnt - Choose All That Apply Any of the Below Risk Factors Present?: Yes Each Factor Represents 1 point: Acute [place] Other Risk Factors: No Other congenital or acquired thrombophilia - If yes, enter type in comment: No Thrombosis Risk Factor Assessment Total Risk Factor Score: 1 Thrombosis Risk Factor Assessment Level: Low Risk Assessment and Plan Plan: ASSESSMENT: Left upper extremity weakness and numbness with left facial droop secondary to CVA versus TIA, etiology unclear but likely multifactorial due to history of atrial fibrillation and moderate carotid stenosis Paroxysmal atrial fibrillation, maintained on long-term anticoagulation with Eliquis Coronary artery disease with recent stent placement, 90% occlusion of artery per patient, exact vessel unknown Moderate to severe mitral regurgitation, s/p SUMAN 05/29/2017 Ischemic cardiomyopathy with history of AICD implantation in 2013 Chronic systolic congestive heart failure, recent SUMAN reveals EF 15% Acute kidney injury, creatinine 2.30 on admission, baseline creatinine 1.40-1.60 Chronic kidney disease, stage III historically, currently stage IV due to ASHLEIGH, GFR 26 Elevated random blood glucose, recent hemoglobin A1C is 6.0% Hypertension Hyperlipidemia PLAN: Neurology on consult. Await further recommendations and input Obtain bilateral carotid Doppler Continue neuro checks Consult cardiology. Continue telemetry Continue anticoagulation the form of Eliquis PT/OT Speech therapy Monitor kidney function Home meds as appropriate Monitor labs GI prophylaxis: Pepcid 20 mg PO BID DVT prophylaxis: Eliquis Monitor vital signs and address as appropriate Further recommendations pending patient's course Nurse practitioner note has been reviewed by physician. Signing provider agrees with the documented findings, assessment, and plan of care.
[2017-08-01 11:09] LABS: Calcium 9.3 mg/dL (8.4-10.2); Potassium 3.6 mmol/L (3.5-5.1)
[2017-08-01] MEDS ORDERED: CARVEDILOL 3.125 MG TAB PO ONE (11:30)
[2017-08-01 11:53] VITALS: BMI 24.5
--- NOTE | 2017-08-01 11:54 | US ---
EXAMINATION TYPE: US carotid duplex BILAT DATE OF EXAM: 08/01/2017 COMPARISON: NONE CLINICAL HISTORY: cva. Numbness in left hand. Extremely difficult exam as patient is short of breath and breathing heavy causing movement of vessels. EXAM MEASUREMENTS: RIGHT: Peak Systolic Velocity (PSV) cm/sec ----- Right CCA: 32.6 ----- Right ICA: 131.9 ----- Right ECA: 72.1 ICA/CCA ratio: 4.0 RIGHT: End Diastole cm/sec ----- Right CCA: 9.5 ----- Right ICA: 57.6 ----- Right ECA: 5.8 LEFT: Peak Systolic Velocity (PSV) cm/sec ----- Left CCA: 73.4 ----- Left ICA: 125.8 ----- Left ECA: 68.1 ICA/CCA ratio: 1.7 LEFT: End Diastole cm/sec ----- Left CCA: 18.3 ----- Left ICA: 31.3 ----- Left ECA: 12.4 VERTEBRALS (direction of flow): Right Vertebral: Antegrade Left Vertebral: Antegrade Rhythm: Arrhythmia Moderate/severe amount of plaque visualized in bilateral bulbs. Tortuous/elevated right mid ICA. IMPRESSION: 1. Focal stenosis within the right internal carotid artery sonographically corresponding to 50-69%. M oderate amount of atheromatous plaquing is also seen within the carotid bulb on the right. CTA neck c ould be performed for more accurate assessment of degree of stenosis. 2. Mildly elevated peak systolic velocity of the left internal carotid artery without abnormal paralegal internship al carotid artery to common carotid artery ratio. Grayscale images demonstrate moderate plaquing sugg estive of a low-grade stenosis, estimated at 50% sonographically. 3. Incidental note of a cardiac arrhythmia persisting throughout the exam. Correlate with EKG.
--- NOTE | 2017-08-01 11:55 | CONS ---
CONSULTATION Mr. Portillo is an 82-year-old gentleman who is seen for cardiac evaluation. This patient's medical records reviewed. This patient has a known history of cardiomyopathy with congestive cardiac failure. The patient recently was sent to [place] [facility] [place] evaluation of mitral regurgitation and possible clip placement. Continued growth consultation on Maximo Herbert José Luis at the [facility] patient underwent cardiac catheterization and patient underwent a stent placement to coronary artery of 90% blockage. The patient was advised medical treatment. The patient was admitted with the left upper extremity weakness and some clumsiness yesterday. Did not have any headache. Initial CAT scan is normal. Patient has a known history of cardiomyopathy, AICD placement and chronic atrial fibrillation. The patient denies any orthopnea or PND. His physical and functional activities are limited. PAST MEDICAL HISTORY: Past medical history includes a history of coronary artery disease, prior myocardial infarction, cardiomyopathy, congestive cardiac failure, prostate disorder and chronic kidney disease. HOME MEDICATIONS: Home medications included aspirin once a day, Coreg 3.125 mg b.i.d., Demadex 20 mg daily, Zocor 20 mg daily, Zyloprim, Eliquis 2.5 mg b.i.d., Entresto twice a day, Brilinta 90 mg twice a day, and CoQ10. PHYSICAL EXAMINATION: Physical examination at present reveals 82-year-old gentleman who does not appear to be in any acute distress. The patient's blood pressure is 110/70 mmHg. Head/ENT examination is negative. Neck is supple. There is no increase in jugular venous pressure. Both the carotid pulses are felt. There is no bruit. Chest is symmetrical. HEART: The PMI is not felt. First and second heart sounds are normal. There is a systolic murmur heard at the apex. Lungs are clinically clear to auscultation and percussion. Abdomen is soft. Liver and spleen are not enlarged. EXTREMITIES: Peripheral pulsations are not felt. This patient's recent transesophageal echocardiogram revealed a severely impaired left ventricular systolic functions and moderate to severe mitral regurgitation. The patient's hemoglobin is 11.9, creatinine is 2.04. CAT scan is normal. Chest x-ray shows moderate cardiomegaly without any acute changes. FINAL IMPRESSION: This patient has symptoms suggestive of possible transient ischemic attack. The patient is already on multiple blood thinners. Carotid duplex study will be done to rule out any high-grade stenosis. We cannot increase the dose of Eliquis as patient's renal functions are impaired. Currently patient is getting a triple therapy which is high risk for bleeding in this 82-year-old gentleman. I would recommend to change the patient to Eliquis and combination of Plavix and discontinue the aspirin. MMODL / IJN: [id number] /
[2017-08-01] MEDS: MULTIVITAMINS, THERA 1 EACH TAB PO SCH (12:02)
[2017-08-01] MEDS: CARVEDILOL 6.25 MG TAB PO SCH (17:45)
--- NOTE | 2017-08-01 19:58 | CONS ---
CONSULTATION DATE OF CONSULTATION: 08/01/2017 CHIEF COMPLAINT: Stroke. HISTORY OF PRESENT ILLNESS: The patient is a pleasant 82-year-old male who is being evaluated by the neurology service per the request of Dr. Cuenca for a stroke. The patient was brought into [facility] after he noticed a sudden onset of weakness involving his left upper extremity. The patient described it as his arm being clumsy and difficult to control. He was also noticing weakness in his servicer on the left side. He did not have any numbness, tingling, speech difficulties or dizziness. The patient does have history of atrial fibrillation, coronary artery disease and heart failure and is on Eliquis and Brilinta at home. He was complaining of significant bruising, and his regimen has been switched to Xarelto and Plavix on this admission. A CT scan of the brain was done in the emergency room which showed generalized atrophy and small- vessel ischemic changes. His carotid Doppler showed 50% to 69% stenosis involving the right internal carotid artery and approximately 50% stenosis on the left side. His comprehensive metabolic profile showed significant renal insufficiency with a BUN of 67 and creatinine of 2.3. The patient has had chronic renal insufficiency over the past year or so. His CBC showed anemia with a hemoglobin of 11.9 and hematocrit of 35% and thrombocytopenia at 133,000. His cardiac enzymes were normal. At the time of my evaluation, he is lying in his bed and appears to be in no acute distress. He states that the weakness has resolved. PAST MEDICAL HISTORY: 1. Atrial fibrillation. 2. Coronary artery disease. 3. Heart failure. 4. Dyslipidemia. 5. Hypertension. 6. History of myocardial infarction. 7. Arthritis. 8. Benign prostatic hypertrophy. 9. Nephrolithiasis. 10.Chronic renal insufficiency. 11.Pacemaker implant. 12.Bowel resection history. 13.Orthopedic surgeries. 14.Coronary artery stent placements. 15.Cataract surgery. SOCIAL HISTORY: He denies any tobacco or drug use. He rarely drinks alcohol. FAMILY HISTORY: Positive for cancer. HOME MEDICATIONS: Reviewed in the chart. ALLERGIES: NO KNOWN DRUG ALLERGIES. REVIEW OF SYSTEMS: CONSTITUTIONAL: Negative. EYES: Negative. ENT: Negative. CARDIOVASCULAR: As mentioned above. RESPIRATORY: Negative. NEUROLOGICAL: As mentioned above. GASTROINTESTINAL: Negative. GENITOURINARY: Positive for benign prostatic hypertrophy. PSYCHIATRIC: Negative. DERMATOLOGICAL: Negative. ENDOCRINE: Negative. MUSCULOSKELETAL: Positive for occasional joint pain. PHYSICAL EXAMINATION: Vital signs show a temperature of 97.9, pulse 78, respiration 18, blood pressure 82/56. GENERAL APPEARANCE: The patient is a well-developed male who appears to be in no acute distress. HEENT: Normocephalic, atraumatic. Minimal left facial drooping is seen. NECK: Supple with no masses felt. CARDIOVASCULAR: Irregularly irregular rhythm with a normal rate. ABDOMEN: Nontender, nondistended. Extremities showed no edema or clubbing. NEUROLOGICAL EXAMINATION: The patient is awake and oriented x3. Speech and language are normal. Strength is full in all 4 extremities. No pronator drift is seen. Minimal dysdiadochokinesia is noticed on the left upper extremity compared to the right. Sensory exam was normal to light touch in all 4 extremities. No seizure-like activity is seen. Cranial nerve testing showed minimal left facial drooping. IMPRESSION: 1. Acute ischemic stroke. 2. Left-sided weakness. 3. Carotid stenosis. 4. Renal insufficiency. 5. Thrombocytopenia. 6. Anemia. RECOMMENDATION: The patient does appear to have suffered an acute ischemic stroke, likely involving the right middle cerebral artery distribution. He did have weakness on the left upper extremity on arrival. Although this has improved, his neurological examination still shows minimal weakness with dysdiadochokinesia on that side and minimal left facial drooping. He is already on anticoagulation and anti-platelet therapy, and no changes will be made from that standpoint. I will order a fasting lipid panel, serum homocystine level and EEG. A CT angiogram of the neck is recommended, but this cannot be done, given his renal function at this time. Continue neuro checks. I will continue to follow with you. Further recommendations to follow. Thank you, Dr. Cuenca, for allowing me to participate in the care of your patient. If you have any questions, please feel free to contact me. MMODL / IJN: [id number] /
[2017-08-01] MEDS: ATORVASTATIN 10 MG TAB PO SCH (20:16)
[2017-08-01] MEDS ORDERED: FAMOTIDINE 20 MG TAB PO SCH (21:00)
[2017-08-01 22:14] LABS: Hemoglobin A1C 5.9 % (4.0-6.0)
[2017-08-02 06:23] LABS: Basophils % (A) 1 %; Eosinophils # (A) 0.1 k/uL (0-0.7); Eosinophils % (A) 2 %; HCT 37.6 % (39.0-53.0); Hypochromasia Slight; Lymphocytes # (A) 1.1 k/uL (1.0-4.8); Lymphocytes % (A) 23 %; MCH 33.9 pg (25.0-35.0); MCV 106.1 fL (80.0-100.0); Macrocytosis Moderate; Mean Platelet Volume 10.2; Monocytes # (A) 0.4 k/uL (0-1.0); Monocytes % (A) 8 %; Neutrophils # (A) 3.2 k/uL (1.3-7.7); Neutrophils % (A) 63 %; Platelet Count 124 k/uL (150-450); RBC 3.54 m/uL (4.30-5.90); RDW 15.5 % (11.5-15.5); WBC 5.1 k/uL (3.8-10.6)
[2017-08-02 06:38] LABS: Calcium 9.5 mg/dL (8.4-10.2); Potassium 3.6 mmol/L (3.5-5.1)
[2017-08-02] MEDS: MULTIVITAMINS, THERA 1 EACH TAB PO SCH (08:26)
[2017-08-02] MEDS: SACUBITRIL/VALSARTAN 24 MG-26 MG TABLET PO SCH (08:26)
[2017-08-02] MEDS: ALLOPURINOL 100 MG TAB PO SCH (08:26)
[2017-08-02] MEDS: TORSEMIDE 20 MG TAB PO SCH (08:26)
[2017-08-02] MEDS: CARVEDILOL 6.25 MG TAB PO SCH (08:27)
[2017-08-02] MEDS ORDERED: RIVAROXABAN 15 MG TAB PO SCH (09:00)
[2017-08-02] MEDS ORDERED: FAMOTIDINE 20 MG TAB PO SCH (09:00)
[2017-08-02] MEDS ORDERED: CLOPIDOGREL 75 MG TAB PO SCH (09:00)
[2017-08-02] MEDS ORDERED: ASPIRIN 81 MG PO SCH (09:00)
--- NOTE | 2017-08-02 10:50 | P.DS ---
Providers Date of admission: 07/31/17 16:03 Expected date of discharge: 08/02/17 Attending physician: Roland Cuenca Consults: 07/31/17 16:03 Consult Physician Routine Consulting Provider: Richard Hogan Consult Reason/Comments: CVA Do you want consulting provider notified?: Yes 08/01/17 08:16 Consult Physician Routine Consulting Provider: Chirag Gutierrez Consult Reason/Comments: cva, hx of afib Do you want consulting provider notified?: Yes Primary care physician: [facility] Course: 82-year-old male who presented to the emergency room with a chief complaint of left upper extremity weakness. The patient states he was going about his normal daily activities until the afternoon when his left arm became "clumsy". 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 He reports numbness of the distal portion of arm and hand. He denies any difficulty with his speech or swallowing. He denies weakness, numbness, or tingling to left lower extremity or right side of his body. Denies shortness of breath or chest pain. The patient was recently hospitalized from 05/28/2017 to 05/30/2017 for CHF exacerbation and gout. The patient underwent a SUMAN with Dr. Parker during hospitalization which revealed moderate to severe mitral regurgitation, mild aortic regurgitation, and mild tricuspid regurgitation. Enlarged left ventricle with diffuse global hypokinesis and severe LV dysfunction with ejection fraction around 15%. The patient was transferred to [facility] to be evaluated for possible mitral valve clip procedure. The patient states he underwent cardiac catheterization at that time and was found to have a 90% occlusion and a stent placement. The patient does know the exact vessel. He states he did not have his mitral valve repaired and was told they would "watch it". The patient has a history of severe LV dysfunction with mitral regurgitation. The patient was previously on Lasix but was switched to Demadex as he was refractory to Lasix. He is a history of paroxysmal atrial fibrillation. He also has a history of hyperlipidemia, hypertension, BPH, and osteoarthritis. The patient has a permanent pacemaker/AICD inserted in 2013. Chest x-ray: Moderate cardiomegaly persist. There are chronic changes without acute process identified. CT brain: Age related atrophic and chronic small vessel ischemic changes without acute intracranial process EKG: Atrial fibrillation with PVCs. Rate 91. Laboratory data: WBC 5.1. Hemoglobin 11.9. Platelet count 133. Sodium 142. Potassium 3.8. BUN 67. Creatinine 2.30. Glucose 140. AST 21. T 25. Alkaline phosphatase 165. Troponin: 0.017 Lipid panel: Triglycerides 90, cholesterol 110, LDL 52, HDL 40 The patient was admitted to the hospital under the care of Dr. Cuenca. Consultations were placed to neurology and cardiology. Cardiology discontinued the patients aspirin due to high risk of bleeding with his other current medications. He is to continue his plavix. His Eliquis was changed to Xarelto 15mg per cardiology. Neurology feels the patient suffered a cerebrovascular accident likely right middle cerebral artery. CT angiogram of the neck was recommended but is unable to be completed at this time due to the patient's renal function. An EEG was ordered and is to be completed today. Carotid Doppler was completed showing 50- 69% stenosis of the right internal carotid artery and approximately 50% stenosis on the left. The patients left facial droop has resolved. He does have some residual weakness of the left upper extremity, but it has improved since admission. He was deemed stable for discharge home with home care per Dr. Cuenca. He is to follow up on an outpatient basis with Dr. Cuenca, cardiology, and neurology. DISCHARGE DIAGNOSIS: Left upper extremity weakness and numbness with left facial droop secondary to cerebral vascular accident, likely involving the right middle cerebral artery distribution per neurology, facial droop resolved at time of discharge, left upper extremity weakness improved at the time of discharge Paroxysmal atrial fibrillation, maintained on long-term anticoagulation, Eliquis has been changed to Xarelto Coronary artery disease with recent stent placement, 90% occlusion of artery per patient, exact vessel unknown Moderate to severe mitral regurgitation, s/p SUMAN 05/29/2017 Ischemic cardiomyopathy with history of AICD implantation in 2013 Chronic systolic congestive heart failure, recent SUMAN reveals EF 15% Acute kidney injury, creatinine 2.30 on admission, baseline creatinine 1.40-1.60 , improving Chronic kidney disease, stage III Elevated random blood glucose, recent hemoglobin A1C is 6.0% Hypertension Hyperlipidemia Nurse practitioner note has been reviewed by physician. Signing provider agrees with the documented findings, assessment, and plan of care. Patient Condition at Discharge: Stable Plan - Discharge Summary Discharge Rx Participant: No New Discharge Prescriptions: New Carvedilol [Coreg] 6.25 mg PO BID-W/MEALS #60 tab Clopidogrel [Plavix] 75 mg PO DAILY #30 tab Rivaroxaban [Xarelto] 15 mg PO W/SUPPER #30 tab Continue Saw Childs 320 mg PO DAILY Multivitamin [Men's Multi-Vitamin] 1 tab PO DAILY Torsemide [Demadex] 20 mg PO DAILY Krill Oil 1,000 mg PO BID Vitamin B Complex 1 cap PO Q48H Simvastatin [Zocor] 20 mg PO HS Allopurinol [Zyloprim] 100 mg PO DAILY #30 tablet Nitroglycerin Sl Tabs [Nitrostat] 0.4 mg SUBLINGUAL Q5M PRN PRN Reason: Chest Pain Ubidecarenone [Co Q-10] 100 mg PO DAILY Sacubitril/Valsartan [Entresto 24 mg-26 mg Tablet] 1 tab PO BID Discontinued Carvedilol 3.125 mg PO BID Aspirin 81 mg PO DAILY Ticagrelor [Brilinta] 90 mg PO BID Apixaban [Eliquis] 2.5 mg PO BID Discharge Medication List Multivitamin [Men's Multi-Vitamin] 1 tab PO DAILY 06/01/14 [History] Saw Childs 320 mg PO DAILY 06/01/14 [History] Krill Oil 1,000 mg PO BID 05/25/17 [History] Torsemide [Demadex] 20 mg PO DAILY 05/25/17 [History] Simvastatin [Zocor] 20 mg PO HS 05/28/17 [History] Vitamin B Complex 1 cap PO Q48H 05/28/17 [History] Allopurinol [Zyloprim] 100 mg PO DAILY #30 tablet 05/30/17 [Rx] Nitroglycerin Sl Tabs [Nitrostat] 0.4 mg SUBLINGUAL Q5M PRN 07/31/17 [History] Sacubitril/Valsartan [Entresto 24 mg-26 mg Tablet] 1 tab PO BID 07/31/17 [ History] Ubidecarenone [Co Q-10] 100 mg PO DAILY 07/31/17 [History] Carvedilol [Coreg] 6.25 mg PO BID-W/MEALS #60 tab 08/02/17 [Rx] Clopidogrel [Plavix] 75 mg PO DAILY #30 tab 08/02/17 [Rx] Rivaroxaban [Xarelto] 15 mg PO W/SUPPER #30 tab 08/02/17 [Rx] Follow up Appointment(s)/Referral(s): [facility], [NON-STAFF] - Richard Hogan MD [STAFF PHYSICIAN] - 2 Weeks Roland Cuenca MD [Primary Care Provider] - 1-2 days Chirag Gutierrez MD [STAFF PHYSICIAN] - 2 Weeks Activity/Diet/Wound Care/Special Instructions: Discharge Disposition: HOME WITH HOME HEALTH SERVICES
[2017-08-02 11:31] LABS: Glucose,Whole Blood 130 mg/dL (75-99)
[2017-08-02 11:34] VITALS: BP 139/63; PULSE 100; RESP 20; TEMP 98.8
--- NOTE | 2017-08-02 19:02 | EEG ---
ELECTROENCEPHALOGRAM REPORT DATE OF SERVICE: 08/02/2017. REASON FOR TESTING: Stroke. DESCRIPTION OF THE PROCEDURE: This EEG was performed using a 21-channel digital electroencephalograph, following international 10-20 system. DESCRIPTION OF THE RECORDING: From the beginning of the tracing, and with the patient's eyes closed, the background rhythm was mostly consisting of 7 Hz theta frequency in the posterior occipital leads. No obvious asymmetry is seen. Photic stimulation was performed with a minimal driving response seen. No pathological waves were elicited. Hyperventilation was not performed. The patient remains awake throughout the tracing. No epileptiform discharges were seen. His EKG lead showed an irregularly irregular rhythm with a normal rate. INTERPRETATION: This awake EEG is abnormal due to the presence of generalized slowing of the background rhythm, mostly in the theta range. This is consistent with mild encephalopathy. No epileptiform discharges were seen. The absence of epileptiform discharges does not rule out the diagnosis of epilepsy; therefore clinical correlation is recommended. MMPENGL / SUKHDEV: [id number] /
--- NOTE | 2017-08-09 09:44 | CDI ---
Last Revision, February 2017 Documentation Clarification Form Date: 08/09/17 From: Marichuy Keith Phone: If you have a question regarding this query, please contact Kristy Donald at [phone] between 8am and 5pm. Admit Date: 07/31/2017 4:03:00 PM Patient Name: Maximo Portillo Visit Number: [id number] Discharge Date: 08/02/17 ATTENTION: The Clinical Documentation Specialists (CDI) and [facility] Coding Staff appreciate your assistance in clarifying documentation. Please respond to the clarification below the line at the bottom and electronically sign. The CDI & [facility] Coding staff will review the response and follow-up if needed. Please note: Queries are made part of the Legal Health Record. If you have any questions, please contact the author of this message via ITS. Dr. Richard Hogan A diagnosis of anemia in your consult note lacks specificity to accurately reflect your patients severity of condition and clarification is needed. History/Risk Factors: Patient has a history of CAD, hypertension, CKD 3 and CHF. Patient is on Eliquis and aspirin. Clinical indicators: Low hgb & hct Hemoglobin: 11.9 Hematocrit: 35.7 In order to capture the severity of condition, please clarify the type of anemia and etiology if known: Acute blood loss anemia Acute on chronic blood loss anemia Chronic blood loss anemia Iron deficiency anemia Nutritional anemia Anemia of chronic kidney disease Unable to determine Other, please specify MTDD
== END 2017-08-02 12:31 | disposition home health service (06) | DRG 65 ==
LOC: EC 14:33 → 6SEL 16:03
PROVIDERS: ADMIT Family Medicine; ATTEND Family Medicine
DX: I63.8 Other cerebral infarction (principal); I13.0 Hypertensive heart and chronic kidney disease with heart failure and stage 1 through stage 4 chronic kidney disease, or unspecified chronic kidney disease; I50.22 Chronic systolic (congestive) heart failure; N17.9 Acute kidney failure, unspecified; D69.6 Thrombocytopenia, unspecified; I08.3 Combined rheumatic disorders of mitral, aortic and tricuspid valves; I65.23 Occlusion and stenosis of bilateral carotid arteries; D63.1 Anemia in chronic kidney disease; R29.702 NIHSS score 2; R29.810 Facial weakness; G83.24 Monoplegia of upper limb affecting left nondominant side; E78.5 Hyperlipidemia, unspecified; I25.10 Atherosclerotic heart disease of native coronary artery without angina pectoris; I25.2 Old myocardial infarction; I25.5 Ischemic cardiomyopathy; I48.2 Chronic atrial fibrillation; I49.3 Ventricular premature depolarization; N18.3 Chronic kidney disease, stage 3 (moderate); N40.0 Benign prostatic hyperplasia without lower urinary tract symptoms; M10.9 Gout, unspecified; M19.90 Unspecified osteoarthritis, unspecified site; R73.9 Hyperglycemia, unspecified; Z79.01 Long term (current) use of anticoagulants; Z79.82 Long term (current) use of aspirin; Z79.899 Other long term (current) drug therapy; Z87.442 Personal history of urinary calculi; Z95.810 Presence of automatic (implantable) cardiac defibrillator; Z95.5 Presence of coronary angioplasty implant and graft; Z90.49 Acquired absence of other specified parts of digestive tract; Z80.3 Family history of malignant neoplasm of breast
CPT/HCPCS: 36415; 70450; 71046; 80048; 80053; 80061; 82550; 82553; 83036; 83090; 84484; 85025; 85610; 85730; 93005; 93880; 95819; 99285

== ENCOUNTER → 2018-07-02 | Outpatient (CLI) | payer MEDICARE ==
[2018-07-02 17:00] LABS: HCT 38.9 % (39.0-53.0); MCH 34.2 pg (25.0-35.0); MCHC 33.3 g/dL (31.0-37.0); MCV 102.6 fL (80.0-100.0); Macrocytosis Slight; Mean Platelet Volume 9.7; Platelet Count 129 k/uL (150-450); RBC 3.79 m/uL (4.30-5.90); RDW 13.7 % (11.5-15.5)
[2018-07-02 17:38] LABS: Appearance,Urine Clear (Clear); Bilirubin,Urine Negative (Negative); Blood,Urine Trace (Negative); Color,Urine Light Yellow; Glucose,Urine (UA) Negative (Negative); Ketones,Urine Negative (Negative); Leukocyte Esterase,Urine Negative (Negative); Mucus,Urine Rare /hpf; Nitrite,Urine Negative (Negative); PH, Urine 5.5 (5.0-8.0); Protein,Urine Negative (Negative); RBC,Urine 4 /hpf (0-5); Specific Gravity,Urine 1.007 (1.001-1.035); Urobilinogen,Urine <2.0 mg/dL (<2.0); WBC,Urine 8 /hpf (0-5)
[2018-07-02 23:29] LABS: Albumin 4.5 g/dL (3.80-4.90); Albumin/Globulin Ratio 2.05 (1.60-3.17); Anion Gap 11.9 mmol/L (4.00-12.00); Carbon Dioxide 28.1 mmol/L (21.6-31.8); Globulin 2.2 g/dL (1.6-3.3); Phosphorus 4.3 mg/dL (2.4-5.1); Potassium 4.4 mmol/L (3.5-5.5); Total Bilirubin 1.2 mg/dL (0.3-1.2); Total Protein 6.7 g/dL (6.2-8.2)
== END | disposition home or self-care (01) ==
LOC: LABWHC1 16:10
PROVIDERS: ATTEND Family Medicine
DX: I12.9 Hypertensive chronic kidney disease with stage 1 through stage 4 chronic kidney disease, or unspecified chronic kidney disease (principal); N18.9 Chronic kidney disease, unspecified
CPT/HCPCS: 36415; 80053; 81001; 84100; 85027

== ENCOUNTER → 2018-07-30 | Outpatient (CLI) | payer MEDICARE ==
--- NOTE | 2018-07-30 15:01 | US ---
EXAMINATION TYPE: US kidneys/renal and bladder DATE OF EXAM: 07/30/2018 COMPARISON: NONE CLINICAL HISTORY: N18.4 CKD. abnormal labs EXAM MEASUREMENTS: Right Kidney: 10.6 x 4.4 x 6.4 cm Left Kidney: 10.4 x 4.9 x 6.2 cm Post Void Residual Volume: 567.1 mL Right Kidney: Severe hydronephrosis. Post void images taken, no change in hydro seen. Lower lateral c ystic appearing lesion - 1.1 x 1.1 x 0.8 cm Left Kidney: Severe hydronephrosis. Post void images taken, no change in hydro seen. Lower pole cyst ic appearing lesion - 2.1 x 2.6 x 2.3 cm Bladder: Irregular contour of bladder wall. Bladder wall appears thickened -7.3 mm. Bilateral Jets not seen Abnormal Post Void Residual Incidental finding- Prominent prostate visualized = 7.0 x 5.9 cm IMPRESSION: 1. Prominent bilateral hydronephrosis. No significant change between pre and post void is evident. 2. Prominent prostate.
== END | disposition home or self-care (01) ==
LOC: RADUSWWP 13:12
PROVIDERS: ATTEND Internal Medicine
DX: N13.30 Unspecified hydronephrosis (principal); N18.4 Chronic kidney disease, stage 4 (severe)
CPT/HCPCS: 76770

== ENCOUNTER → 2018-09-02 | Outpatient (CLI) | payer MEDICARE ==
[2018-09-02 11:38] LABS: Calcium 9.8 mg/dL (8.4-10.2); Potassium 4.3 mmol/L (3.5-5.1)
--- NOTE | 2018-09-02 11:38 | US ---
EXAMINATION TYPE: US kidneys/renal and bladder DATE OF EXAM: 09/02/2018 COMPARISON: 07/30/2018 CLINICAL HISTORY: R93.4 Abnormal findings on imaging of urinary orga. EXAM MEASUREMENTS: Right Kidney: 10.9 x 5.1 x 5.0 cm Left Kidney: 9.4 x 4.7 x 4.4 cm Right Kidney: moderate hydronephrosis . The previously seen cystic right renal lesion is not reproduc ed. Left Kidney: moderate hydronephrosis; cyst lower pole (1.8 x 2.2 x 1.9 cm) Bladder: napoles catheter in place; thickened wall Bilateral Jets seen: no No nephrolithiasis is seen. No suspicious masses are identified. The urinary bladder is decompresse d secondary to placement of a Napoles catheter. Urinary bladder roberts are irregular and thickened. Frank ateral ureteral jets are not seen. IMPRESSION: 1. Moderate bilateral hydronephrosis. 2. Diffusely thickened and irregular urinary bladder wall up to 1.[address] cystogram or direct visual ization could further evaluate this finding. 3. Simple appearing left renal cyst.
== END | disposition home or self-care (01) ==
LOC: RADUSWWP 10:17
PROVIDERS: ATTEND Urology
DX: N13.30 Unspecified hydronephrosis (principal); N28.1 Cyst of kidney, acquired; N32.89 Other specified disorders of bladder; N19 Unspecified kidney failure
CPT/HCPCS: 76770; 80048

== ENCOUNTER → 2018-10-18 | Outpatient (CLI) | payer MEDICARE ==
[2018-10-18 12:21] LABS: Appearance,Urine Clear (Clear); Bilirubin,Urine Negative (Negative); Blood,Urine Trace (Negative); Color,Urine Light Yellow; Glucose,Urine (UA) Negative (Negative); Hyaline Casts,Urine 3 /lpf (0-2); Ketones,Urine Negative (Negative); Leukocyte Esterase,Urine Moderate (Negative); Mucus,Urine Rare /hpf; Nitrite,Urine Negative (Negative); Protein,Urine Negative (Negative); RBC,Urine 3 /hpf (0-5); Specific Gravity,Urine 1.007 (1.001-1.035); Urobilinogen,Urine <2.0 mg/dL (<2.0); WBC,Urine 10 /hpf (0-5)
[2018-10-18 12:37] LABS: HGB 12.6 gm/dL (13.0-17.5); MCH 33.1 pg (25.0-35.0); MCHC 32.5 g/dL (31.0-37.0); MCV 101.9 fL (80.0-100.0); Macrocytosis Slight; Mean Platelet Volume 8.1; Platelet Count 156 k/uL (150-450); RBC 3.82 m/uL (4.30-5.90); RDW 14.3 % (11.5-15.5); WBC 6.8 k/uL (3.8-10.6)
[2018-10-18 17:50] LABS: Vitamin D 25 Hydroxy 30.2 ng/mL (30.0-100.0)
[2018-10-18 17:57] LABS: African American GFR (CKD) 31.2 (60.0-200.0); Albumin 4.1 g/dL (3.80-4.90); Albumin/Globulin Ratio 2.05 (1.60-3.17); BUN/Creat Ratio 30.45 Ratio (12.00-20.00); Calcium 9.6 mg/dL (8.7-10.3); Potassium 4.3 mmol/L (3.5-5.5); Total Bilirubin 0.8 mg/dL (0.2-1.2); Total Protein 6.1 g/dL (6.2-8.2); Uric Acid 6.8 mg/dL (3.7-8.7)
[2018-10-18 18:24] LABS: Iron Saturation 33.01 (15.00-50.00)
[2018-10-18 18:27] LABS: Magnesium 1.9 mg/dL (1.5-2.4); Phosphorus 3.5 mg/dL (2.4-5.1)
[2018-10-18 18:40] LABS: DNA Double-Stranded NEGATIVE (NEGATIVE)
[2018-10-18 19:15] LABS: Creatinine,Urine Random 18.7 mg/dL
[2018-10-18 19:53] LABS: Total Protein,Urine Random 16.4 mg/dL (0.0-13.5)
[2018-10-19 10:57] LABS: Complement C3 88.1 mg/dL (80.0-207.0)
[2018-10-21 14:37] LABS: C-ANCA <1:20 Titer (<1:20)
== END | disposition home or self-care (01) ==
LOC: LABWHC1 11:01
PROVIDERS: ATTEND Internal Medicine
DX: N18.4 Chronic kidney disease, stage 4 (severe) (principal); N39.0 Urinary tract infection, site not specified; R80.9 Proteinuria, unspecified; E83.39 Other disorders of phosphorus metabolism
CPT/HCPCS: 36415; 80053; 80074; 81001; 82306; 82570; 82728; 83516; 83540; 83550; 83735; 83883; 83970; 84100; 84156; 84166; 84550; 85027; 86038; 86160; 86162; 86225; 86255; 86334

== ENCOUNTER 2018-12-06 07:32 | Emergency (ER) | payer MEDICARE ==
--- NOTE | 2018-12-06 08:28 | ED ---
Extremity Problem HPI - General Chief complaint: Extremity Problem,Nontraumatic Stated complaint: right arm swelling Time Seen by Provider: 12/06/18 07:45 Source: patient Mode of arrival: wheelchair Limitations: no limitations - History of Present Illness Initial comments: 83-year-old male with history of gout, patient is on Plavix presented for chief complaint of right wrist pain. Patient states she has a swollen right wrist that has been tender for the past 2 days increasing last night. His states she feels this is gout. She states is similar to his previous gout exacerbations. Patient denies any direct injury or trauma denies any flulike symptoms or fevers. Denies any significant redness he states the pain is increased with range of motion. Patient states he has been eating a lot of red meat recently. Including last night prior to the onset of increased symptoms. Patient denies any bruising rashes breaks in skin. Remaining review of system negative. Upon arrival patient appears well no signs of acute distress vital signs within except for limits patient is afebrile. Nontoxic. - Related Data Home Medications Medication Instructions Recorded Confirmed Multivitamin [Men's Multi-Vitamin] 1 tab PO DAILY 06/01/14 07/31/17 Saw Worthington 320 mg PO DAILY 06/01/14 07/31/17 Krill Oil 1,000 mg PO BID 05/25/17 07/31/17 Torsemide [Demadex] 20 mg PO DAILY 05/25/17 07/31/17 Simvastatin [Zocor] 20 mg PO HS 05/28/17 07/31/17 Vitamin B Complex 1 cap PO Q48H 05/28/17 07/31/17 Nitroglycerin Sl Tabs [Nitrostat] 0.4 mg SUBLINGUAL Q5M PRN 07/31/17 07/31/17 Sacubitril/Valsartan [Entresto 24 1 tab PO BID 07/31/17 07/31/17 mg-26 mg Tablet] Ubidecarenone [Co Q-10] 100 mg PO DAILY 07/31/17 07/31/17 Previous Rx's Medication Instructions Recorded Allopurinol [Zyloprim] 100 mg PO DAILY #30 tablet 05/30/17 Carvedilol [Coreg] 6.25 mg PO BID-W/MEALS #60 tab 08/02/17 Clopidogrel [Plavix] 75 mg PO DAILY #30 tab 08/02/17 Rivaroxaban [Xarelto] 15 mg PO W/SUPPER #30 tab 08/02/17 HYDROcodone/APAP 5-325MG [Hornbrook 1 tab PO Q4HR PRN 3 Days #18 tab 12/06/18 5-325] Allergies Allergy/AdvReac Type Severity Reaction Status Date / Time No Known Allergies Allergy Verified 12/06/18 07:37 Review of Systems ROS Statement: Those systems with pertinent positive or pertinent negative responses have been documented in the HPI. ROS Other: All systems not noted in ROS Statement are negative. Past Medical History Past Medical History: Atrial Fibrillation, Coronary Artery Disease (CAD), Heart Failure, Hyperlipidemia, Hypertension, Myocardial Infarction ([place]), Osteoarthritis (OA), Prostate Disorder Additional Past Medical History / Comment(s): HAVING OCC SHORTNESS OF BREATH. SEE DR ALCAZAR H&P. HX BPH; KIDNEY STONE. states his kidney function has decreased. [employer] is the name of his defibrillator. Last Myocardial Infarction Date:: 2013 History of Any Multi-Drug Resistant Organisms: None Reported Past Surgical History: AICD, Bowel Resection, Heart Catheterization With Stent, Orthopedic Surgery Additional Past Surgical History / Comment(s): 03/2013 AICD. RT ROTATOR CUFF, RT KNEE SCOPE. cataract surgery. recent heart cath completed at [facility] [place] 2017 Past Anesthesia/Blood Transfusion Reactions: No Reported Reaction Date of Last Stent Placement:: 2001 Type of Cardiac Device: AICD Device Placement Date:: 04/17/13 Past Psychological History: No Psychological Hx Reported Smoking Status: Never smoker Past Alcohol Use History: Rare Past Drug Use History: None Reported - Past Family History Mother Family Medical History: Cancer Additional Family Medical History / Comment(s): Breast General Exam - General Exam Comments Initial Comments: General: The patient is awake and alert, in no distress, and does not appear acutely ill. Eye: Pupils are equal, round and reactive to light, extra-ocular movements are intact. No nystagmus. There is normal conjunctiva bilaterally. No signs of icterus. Ears, nose, mouth and throat: There are moist mucous membranes and no oral lesions. Neck: The neck is supple, there is no tenderness or JVD. Cardiovascular: There is a regular rate and rhythm. No murmur, rub or gallop is appreciated. Respiratory: Lungs are clear to auscultation, respirations are non-labored, breath sounds are equal. No wheezes, stridor, rales, or rhonchi. Musculoskeletal: Upon inspection of the hands and wrists bilaterally there is soft tissue swelling of the right wrist in comparison the left. There is no redness. There is slightly increased warmth of the right wrist in comparison the left. Patient is increased pain with range of motion however there is full range of motion at the wrist and all digits of the hand. No swelling of the proximal forearm or upper extremities. Strength 5/5. Sensation intact. Radial pulses equal bilaterally 2+. Neurological: A&O x 3. CN II-XII intact grossly, There are no obvious motor or sensory deficits. Coordination appears grossly intact. Speech is normal. Skin: Skin is warm and dry and no rashes or lesions are noted. Psychiatric: Cooperative, appropriate mood & affect, normal judgment. Limitations: no limitations Course Vital Signs 12/06/18 12/06/18 12/06/18 07:33 08:37 10:23 Temperature 97.8 F 97.0 F L 97.0 F L Pulse Rate 99 67 67 Respiratory 20 16 16 Rate Blood Pressure 114/70 125/74 125/74 O2 Sat by Pulse 100 97 97 Oximetry Medical Decision Making - Medical Decision Making 83yo male presented for chief complaint of right wrist pain. Patient's history of gout. Imaging studies are more consistent with a gout exacerbation. US no DVT. Patient does have swelling at the joint no redness. No fevers Patient was provided prescription for Hornbrook as he does not have substantial kidney function to allow for chronic nonsteroidal anti-inflammatory use. Laboratory studies reveal no leukocytosis. Patient is to f/u with his primary care provider in 24- 48 hours. Return parameters were discussed and patient is agreeable with care plan and discharge at this time. - Lab Data Result diagrams: 12/06/18 08:21 12/06/18 08:21 Lab Results 12/06/18 12/06/18 Range/Units 08:21 08:21 WBC 8.6 (3.8-10.6) k/uL RBC 3.46 L (4.30-5.90) m/uL Hgb 11.7 L (13.0-17.5) gm/dL Hct 35.7 L (39.0-53.0) % MCV 103.2 H (80.0-100.0) fL MCH 33.7 (25.0-35.0) pg MCHC 32.7 (31.0-37.0) g/dL RDW 13.9 (11.5-15.5) % Plt Count 198 (150-450) k/uL Neutrophils % 82 % Lymphocytes % 7 % Monocytes % 5 % Eosinophils % 4 % Basophils % 1 % Neutrophils # 7.1 (1.3-7.7) k/uL Lymphocytes # 0.6 L (1.0-4.8) k/uL Monocytes # 0.4 (0-1.0) k/uL Eosinophils # 0.3 (0-0.7) k/uL Basophils # 0.1 (0-0.2) k/uL Macrocytosis Slight ESR 20 H (0-15) mm/hr Sodium 138 (137-145) mmol/L Potassium 4.7 (3.5-5.1) mmol/L Chloride 107 (98-107) mmol/L Carbon Dioxide 20 L (22-30) mmol/L Anion Gap 11 mmol/L BUN 35 H (9-20) mg/dL Creatinine 1.77 H (0.66-1.25) mg/dL Est GFR (CKD-EPI)AfAm 41 (>60 ml/min/1.73 sqM) Est GFR (CKD-EPI)NonAf 35 (>60 ml/min/1.73 sqM) Glucose 179 H (74-99) mg/dL Calcium 9.4 (8.4-10.2) mg/dL Total Bilirubin 1.2 (0.2-1.3) mg/dL AST 23 (17-59) U/L ALT 23 (21-72) U/L Alkaline Phosphatase 149 H (38-126) U/L C-Reactive Protein 23.4 H (<10.0) mg/L Total Protein 6.6 (6.3-8.2) g/dL Albumin 3.8 (3.5-5.0) g/dL Disposition Clinical Impression: Right wrist pain, Exacerbation of gout Disposition: HOME SELF-CARE Condition: Good Instructions (If sedation given, give patient instructions): Gout (ED) Additional Instructions: Please use medication as discussed. Please follow-up with family doctor in the next 2 days. Please return to emergency room if the symptoms increase or worsen or for any other concerns. Prescriptions: HYDROcodone/APAP 5-325MG [Hornbrook 5-325] 1 tab PO Q4HR PRN 3 Days #18 tab PRN Reason: Severe Pain Is patient prescribed a controlled substance at d/c from ED?: Yes When asked, does pt state using other controlled substances?: No If prescribed controlled substance>3 days was MAPS reviewed?: Prescribed <3 Days If opioid is for acute pain is fill amount 7 days or less?: Yes If Rx opioid, was Start Talking consent form obtained?: Yes Referrals: Maximo Mendez DO [Primary Care Provider] - 1-2 days Time of Disposition: 09:51
--- NOTE | 2018-12-06 08:29 | XR ---
EXAMINATION TYPE: XR wrist complete RT, XR hand complete RT DATE OF EXAM: 12/06/2018 CLINICAL HISTORY: Pain, swelling, and limited mobility of the right wrist for approximately 3 weeks w ith no known injury TECHNIQUE: Frontal, lateral and oblique images of the right hand and wrist are obtained. COMPARISON: None. FINDINGS: There is no acute fracture/dislocation evident in the right wrist nor hand. There is diffu se osseous demineralization seen. Erosion of the radial aspect of the scaphoid is present. Proliferat sergei overhanging osteophytes are present of the distal interphalangeal joints and to a lesser degree o f the proximal interphalangeal joints. Degenerative cysts and narrowing of the carpal carpal joint sp aces. Old noncomminuted fracture of the scaphoid that is well-corticated. Extensive atherosclerosis i s incidentally seen. The overlying soft tissue appears unremarkable. IMPRESSION: 1. Advanced arthropathy of the right hand and mild of the wrist with findings suggesting gout or less likely erosive osteoarthropathy. 2. No acute fracture or dislocation of the right hand nor wrist. Old nonunited scaphoid fracture.
[2018-12-06 08:39] LABS: Basophils # (A) 0.1 k/uL (0-0.2); Basophils % (A) 1 %; Eosinophils # (A) 0.3 k/uL (0-0.7); Eosinophils % (A) 4 %; HCT 35.7 % (39.0-53.0); HGB 11.7 gm/dL (13.0-17.5); Lymphocytes # (A) 0.6 k/uL (1.0-4.8); Lymphocytes % (A) 7 %; MCH 33.7 pg (25.0-35.0); MCHC 32.7 g/dL (31.0-37.0); MCV 103.2 fL (80.0-100.0); Macrocytosis Slight; Mean Platelet Volume 8.3; Monocytes # (A) 0.4 k/uL (0-1.0); Monocytes % (A) 5 %; Neutrophils # (A) 7.1 k/uL (1.3-7.7); Neutrophils % (A) 82 %; Platelet Count 198 k/uL (150-450); RBC 3.46 m/uL (4.30-5.90); RDW 13.9 % (11.5-15.5); WBC 8.6 k/uL (3.8-10.6)
[2018-12-06 08:47] LABS: Albumin 3.8 g/dL (3.5-5.0); Calcium 9.4 mg/dL (8.4-10.2); Potassium 4.7 mmol/L (3.5-5.1); Total Bilirubin 1.2 mg/dL (0.2-1.3); Total Protein 6.6 g/dL (6.3-8.2)
--- NOTE | 2018-12-06 09:25 | US ---
EXAMINATION TYPE: US venous doppler duplex UE RT DATE OF EXAM: 12/06/2018 COMPARISON: NONE CLINICAL HISTORY: atraumtic swelling. Hand and wrist swelling. SIDE PERFORMED: Right Grayscale, color doppler, spectral doppler imaging performed of the deep veins of the upper extremiti es. There is normal flow, compressibility and vascular waveforms. Right Arm: Negative for DVT IMPRESSION: No sonographic evidence of deep venous thrombosis within the right upper extremity.
[2018-12-06 09:31] LABS: C Reactive Protein 23.4 mg/L (<10.0)
[2018-12-06 09:38] VITALS: BP 125/74; PULSE 67; RESP 16; TEMP 97
[2018-12-06 09:53] LABS: Erythrocyte Sedimentation Rate 20 mm/hr (0-15)
== END 2018-12-06 10:23 | disposition home or self-care (01) ==
LOC: EC 07:32
DX: M10.031 Idiopathic gout, right wrist (principal); R22.31 Localized swelling, mass and lump, right upper limb; I11.0 Hypertensive heart disease with heart failure; I50.9 Heart failure, unspecified; I25.2 Old myocardial infarction; I25.10 Atherosclerotic heart disease of native coronary artery without angina pectoris; E78.5 Hyperlipidemia, unspecified; Z79.02 Long term (current) use of antithrombotics/antiplatelets; Z79.899 Other long term (current) drug therapy; Z95.810 Presence of automatic (implantable) cardiac defibrillator; Z95.5 Presence of coronary angioplasty implant and graft
CPT/HCPCS: 36415; 80053; 85025; 85652; 86140; 99284

== ENCOUNTER → 2019-02-10 | Outpatient (CLI) | payer MEDICARE ==
--- NOTE | 2019-02-11 13:02 | US ---
EXAMINATION TYPE: US kidneys/renal and bladder DATE OF EXAM: 02/10/2019 COMPARISON: 09/02/2018 CLINICAL HISTORY: 83-year-old male N18.4 Chronic kidney disease, stage 4. History of hydronephrosis. Patient has bladder catheter. TECHNIQUE: Multiple sonographic images of the kidneys and bladder are obtained. FINDINGS: EXAM MEASUREMENTS: Right Kidney: 9.6 x 4.1 x 4.5 cm Left Kidney: 9.5 x 3.7 x 3.8 cm Right Kidney: Multiple cystic appearing lesions. Largest measured anterior lower pole = 1.1 x 1.1 x 0.8 cm. No hydronephrosis. Left Kidney: lower pole cystic appearing lesion visualized = 2.2 x 2.5 x 2.0 cm. No hydronephrosis. Bladder: Catheter visualized. Collapse of the bladder limits its evaluation by ultrasound. Bilateral Jets not seen due to catheter IMPRESSION: 1. Resolution of the previously seen hydronephrosis. 2. Bilateral benign-appearing simple renal cysts measuring up to 2.5 cm. 3. Meza catheter is in place. Collapse of the bladder limits evaluation by ultrasound.
== END | disposition home or self-care (01) ==
LOC: RADUSWWP 15:04
PROVIDERS: ATTEND Nurse Practitioner Family
DX: N28.1 Cyst of kidney, acquired (principal); N18.4 Chronic kidney disease, stage 4 (severe); Z96.0 Presence of urogenital implants
CPT/HCPCS: 76770

== ENCOUNTER 2019-12-11 19:14 | Inpatient (IN) | payer MEDICARE ==
[2019-12-11] MEDS ORDERED: IPRATROPIUM 0.5 MG/2.5 ML NEBU INHALATION STA (19:52)
[2019-12-11] MEDS ORDERED: ALBUTEROL NEBULIZED 2.5 MG/3 ML INHALATION STA (19:52)
--- NOTE | 2019-12-11 21:14 | ED ---
General Adult HPI - General Chief complaint: Shortness of Breath Stated complaint: SOB Time Seen by Provider: 12/11/19 19:39 Source: patient, family, RN notes reviewed, old records reviewed Mode of arrival: wheelchair Limitations: no limitations - History of Present Illness Initial comments: 85-year-old presenting for evaluation of dyspnea, this has progressed over the course of 3 weeks. He started on new medication by his primary care physician without significant improvement. He has no previous history of COPD. He does have a history of congestive heart failure. Patient denies lower extremity swelling. Denies chest pain. Denies cough or fever. - Related Data Home Medications Medication Instructions Recorded Confirmed Multivitamin [Men's Multi-Vitamin] 1 tab PO DAILY 06/01/14 07/31/17 Saw [place] 320 mg PO DAILY 06/01/14 07/31/17 Krill Oil 1,000 mg PO BID 05/25/17 07/31/17 Torsemide [Demadex] 20 mg PO DAILY 05/25/17 07/31/17 Simvastatin [Zocor] 20 mg PO HS 05/28/17 07/31/17 Vitamin B Complex 1 cap PO Q48H 05/28/17 07/31/17 Nitroglycerin Sl Tabs [Nitrostat] 0.4 mg SUBLINGUAL Q5M PRN 07/31/17 07/31/17 Sacubitril/Valsartan [Entresto 24 1 tab PO BID 07/31/17 07/31/17 mg-26 mg Tablet] Ubidecarenone [Co Q-10] 100 mg PO DAILY 07/31/17 07/31/17 Previous Rx's Medication Instructions Recorded allopurinoL [Zyloprim] 100 mg PO DAILY #30 tablet 05/30/17 Clopidogrel [Plavix] 75 mg PO DAILY #30 tab 08/02/17 Rivaroxaban [Xarelto] 15 mg PO W/SUPPER #30 tab 08/02/17 carvediloL [Coreg] 6.25 mg PO BID-W/MEALS #60 tab 08/02/17 HYDROcodone/APAP 5-325MG [[place] 1 tab PO Q4HR PRN 3 Days #18 tab 12/06/18 5-325] Allergies Allergy/AdvReac Type Severity Reaction Status Date / Time No Known Allergies Allergy Verified 12/11/19 19:22 Review of Systems ROS Statement: Those systems with pertinent positive or pertinent negative responses have been documented in the HPI. ROS Other: All systems not noted in ROS Statement are negative. Past Medical History Past Medical History: Atrial Fibrillation, Coronary Artery Disease (CAD), Heart Failure, Hyperlipidemia, Hypertension, Myocardial Infarction ([place]), Osteoarthritis (OA), Prostate Disorder Additional Past Medical History / Comment(s): HAVING OCC SHORTNESS OF BREATH. SEE DR ALCAZAR H&P. HX BPH; KIDNEY STONE. states his kidney function has decreased. [employer] [place] is the name of his defibrillator. Last Myocardial Infarction Date:: 2013 History of Any Multi-Drug Resistant Organisms: None Reported Past Surgical History: AICD, Bowel Resection, Heart Catheterization With Stent, Orthopedic Surgery Additional Past Surgical History / Comment(s): 03/2013 AICD. RT ROTATOR CUFF, RT KNEE SCOPE. cataract surgery. recent heart cath completed at [facility] [place] Past Anesthesia/Blood Transfusion Reactions: No Reported Reaction Date of Last Stent Placement:: 2001 Type of Cardiac Device: AICD Device Placement Date:: 04/17/13 Past Psychological History: No Psychological Hx Reported Smoking Status: Never smoker Past Alcohol Use History: Rare Past Drug Use History: None Reported - Past Family History Mother Family Medical History: Cancer Additional Family Medical History / Comment(s): Breast General Exam Limitations: no limitations General appearance: alert, in distress Head exam: Present: atraumatic, normocephalic Eye exam: Present: normal appearance, PERRL Neck exam: Present: normal inspection. Absent: tenderness Respiratory exam: Present: respiratory distress, rales, decreased breath sounds Cardiovascular Exam: Present: tachycardia, irregular rhythm GI/Abdominal exam: Present: soft. Absent: distended, tenderness, guarding Extremities exam: Present: pedal edema (trace) Neurological exam: Present: alert, oriented X3, CN II-XII intact. Absent: motor sensory deficit Skin exam: Present: warm, dry, intact, cyanosis Course Vital Signs 12/11/19 12/11/19 12/11/19 19:16 19:45 20:00 Temperature 97.0 F L Pulse Rate 103 H 85 Respiratory 38 H Rate Blood Pressure 115/71 O2 Sat by Pulse 98 98 Oximetry 12/11/19 20:20 Temperature Pulse Rate 98 Respiratory Rate Blood Pressure O2 Sat by Pulse Oximetry - Reevaluation(s) Reevaluation #1: 12/11/19 22:48 There is delay in establishing IV and sending laboratory testing on this patient. These results are pending, the patient will be admitted prior to labs resulting. Dr. Arnold Will follow-up on laboratory studies. Dr. Matias is aware of the patient and accepts admission. EKG Findings - EKG Comments: EKG Findings:: EKG: Atrial fibrillation with PVC, left bundle branch block, rate of 97, QRS duration 164, QTC 543, similar EKG compared to previous in July 2017 history of left bundle Medical Decision Making - Medical Decision Making 84-year-old male presenting with worsening dyspnea, history of heart failure, chest x-ray showing pulmonary edema and CHF. Laboratories studies are pending at this time. Patient is given a dose of Lasix in the emergency department. He has been admitted to internal medicine with cardiology on consult. Dr. Arnold will follow up on Labs - Lab Data Result diagrams: 12/11/19 22:01 Lab Results 12/11/19 12/11/19 Range/Units 22:01 22:01 Sodium 134 L (137-145) mmol/L Potassium 4.0 (3.5-5.1) mmol/L Chloride 100 (98-107) mmol/L Carbon Dioxide 17 L (22-30) mmol/L Anion Gap 17 mmol/L BUN 98 H (9-20) mg/dL Creatinine 2.58 H (0.66-1.25) mg/dL Est GFR (CKD-EPI)AfAm 26 (>60 ml/min/1.73 sqM) Est GFR (CKD-EPI)NonAf 22 (>60 ml/min/1.73 sqM) Glucose 129 H (74-99) mg/dL Plasma Lactic Acid Frank 3.4 H* (0.7-2.0) mmol/L Calcium 9.7 (8.4-10.2) mg/dL Magnesium 2.6 H (1.6-2.3) mg/dL Total Bilirubin 2.5 H (0.2-1.3) mg/dL AST 69 H (17-59) U/L ALT 134 H (4-49) U/L Alkaline Phosphatase 158 H (38-126) U/L Total Protein 7.0 (6.3-8.2) g/dL Albumin 4.4 (3.5-5.0) g/dL Disposition Clinical Impression: CHF (congestive heart failure), Chronic renal insufficiency Disposition: HOME SELF-CARE Condition: Stable Is patient prescribed a controlled substance at d/c from ED?: No Referrals: Maximo Mendez DO [Primary Care Provider] - 1-2 days Decision to Admit Reason: Admit from EC Decision Date: 12/11/19 Decision Time: 22:49
--- NOTE | 2019-12-11 21:18 | XR ---
EXAMINATION TYPE: XR chest 2V DATE OF EXAM: 12/11/2019 COMPARISON: 07/31/2017 HISTORY: Difficulty breathing TECHNIQUE: FINDINGS: Heart is enlarged. There is pulmonary airspace edema. There is left axillary pacemaker. The re is slight blunting of the costophrenic angles. IMPRESSION: Congestive heart failure and pulmonary edema is mostly new compared to old exam.
[2019-12-11] MEDS ORDERED: FUROSEMIDE 10 MG/ML 4 ML VIAL IV STA (22:11)
[2019-12-11 22:45] LABS: Albumin 4.4 g/dL (3.5-5.0); Calcium 9.7 mg/dL (8.4-10.2); Magnesium 2.6 mg/dL (1.6-2.3); Total Bilirubin 2.5 mg/dL (0.2-1.3)
[2019-12-11] MEDS ORDERED: NALOXONE 0.4 MG/ML 1 ML VIAL IV PRN (22:46)
[2019-12-11 22:53] LABS: Basophils % (A) 0 %; Eosinophils # (A) 0.2 k/uL (0-0.7); Eosinophils % (A) 2 %; HCT 47.2 % (39.0-53.0); HGB 14.6 gm/dL (13.0-17.5); Hypochromasia Moderate; Lymphocytes # (A) 0.9 k/uL (1.0-4.8); Lymphocytes % (A) 10 %; MCH 30.6 pg (25.0-35.0); Macrocytosis Slight; Mean Platelet Volume 11.2; Monocytes # (A) 0.5 k/uL (0-1.0); Monocytes % (A) 6 %; Neutrophils # (A) 7.1 k/uL (1.3-7.7); Neutrophils % (A) 80 %; Platelet Count 140 k/uL (150-450); RBC 4.77 m/uL (4.30-5.90); WBC 8.9 k/uL (3.8-10.6)
[2019-12-11] MEDS ORDERED: HYDROcodone/APAP 5-325MG 1 EACH TAB PO PRN (23:03)
[2019-12-11 23:06] LABS: INR 1.5 (<1.2); Partial Thromboplastin Time 30.7 sec (22.0-30.0); Prothrombin Time 14.6 sec (9.0-12.0)
[2019-12-12] MEDS ORDERED: FUROSEMIDE 10 MG/ML 4 ML VIAL IV SCH (09:00)
[2019-12-12] MEDS: CLOPIDOGREL 75 MG TAB PO SCH (09:06)
[2019-12-12] MEDS: APIXABAN 2.5 MG TABLET PO SCH ×2 (09:06→19:38)
[2019-12-12] MEDS: FUROSEMIDE 10 MG/ML 4 ML VIAL IV SCH ×3 (09:07→22:53)
[2019-12-12] MEDS: carvediloL 6.25 MG TAB PO SCH ×2 (09:07→16:52)
[2019-12-12] MEDS ORDERED: NON FORMULARY DRUG (Vitamin B Complex/Folic Acid [Vitamin B Complex Tablet] 0.4 MG Tablet) PO SCH (09:30)
--- NOTE | 2019-12-12 12:24 | P.HPIM ---
History of Present Illness H&P Date: 12/12/19 Chief Complaint: KWASI HISTORY OF PRESENT ILLNESS This is an 84-year-old male patient of Dr. Mendez and Dr. 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 Patient states that he has had shortness of breath is gradually been worsening over the past 2 weeks. Patient states his breathing is improved since he arrived. He complains of feeling uncomfortable on the ER stretcher. Patient came into [facility] emergency center for evaluation. Chest x-ray reveals congestive heart failure and pulmonary edema new compared to old exam. WBC 8.9, hemoglobin 14.6, platelet count 140. INR 1.5. Sodium 134, CO2 17, BUN 98 creatinine 2.58. Blood sugar 129. Lactic acid 3.4. Magnesium 2.6, total bilirubin 2.5, AST 69, ALT 134, alkaline phosphatase 158. Troponins were elevated at 0.108, 0.107, 0.119. Patient was started on IV Lasix and increase to 40 mg every [address] Gutierrez. Home medications have been resumed. REVIEW OF SYSTEMS Constitutional: No fever, no chills, no night sweats. No weight change. No weakness, fatigue or lethargy. No daytime sleepiness. EENT: No headache. No blurred vision or double vision, no loss of vision. No loss of Hearing, no ringing in the ears, no dizziness. No nasal drainage or congestion. No epistaxis. No sore throat. Lungs: Reports shortness of breath, cough, no sputum production. No wheezing. Cardiovascular: No chest pain, reports lower extremity edema. No palpitations. No paroxysmal nocturnal dyspnea. Reports orthopnea. No lightheadedness or dizziness. No syncopal episodes. Abdominal: No abdominal pain. No nausea, vomiting. No diarrhea. No constipation. No bloody or tarry stools. No loss of appetite. Genitourinary: No dysuria, increased frequency, urgency. No urinary retention. Musculoskeletal: No myalgias. No muscle weakness, no gait dysfunction, no frequent falls. No back pain. No neck pain. Integumentary: No wounds, no lesions. No rash or pruritus. No unusual bruising. No change in hair or nails. Neurologic: No aphasia. No facial droop. No change in mentation. No head injury. No headache. No paralysis. No paresthesia. Psychiatric: No depression. No anxiety. No mood swings. Endocrine: No abnormal blood sugars. No weight change. No excessive sweating or thirst. No cold intolerance. SOCIAL HISTORY Patient was a smoker for only a few years in his 20s. He denies any alcohol, marijuana or illicit drug use. He lives with his . 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 FAMILY HISTORY Father at age 76 with multiple medical problems. Mother at age 91. Patient has 4 siblings one sister from unknown type of cancer and one from covert 19. Patient has 3 children with no major medical problems.. PHYSICAL EXAMINATION Gen: This is an 84-year-old male. He is resting on the ER stretcher and appears to be comfortable. No acute respiratory distress noted. HEENT: Head is atraumatic, normocephalic. Pupils equal, round. Sclerae is anicteric. Oral mucous membranes are dry. NECK: Supple. No JVD. No lymphadenopathy. No thyromegaly. LUNGS: Diminished to the bilat bases. No wheezes or rhonchi. No intercostal retractions. HEART: Regular rate and rhythm. Systolic murmur at the apex. ABDOMEN: Soft. Bowel sounds are present. No masses. No tenderness. Chronic Meza catheter with leg bag in place. EXTREMITIES: Trace bilateral pedal edema. No calf tenderness. NEUROLOGICAL: Patient is awake, alert and oriented x3. Cranial nerves 2 through 12 are grossly intact. ASSESSMENT AND PLAN 1. Acute on chronic systolic heart failure. Patient is on Lasix IV 40 mg every 8 hours. Consult with cardiology appreciated. Monitor I&O and daily weights. Monitor renal function and electrolytes. Continue Coreg 6.25 mg twice daily and Entresto daily. Echocardiogram ordered 2. Acute kidney injury with chronic kidney disease stage 4. Consult with nephrology. 3. Chronic urinary retention with chronic Meza catheter. 4. Elevated troponins, possible non-ST elevated myocardial infarction. Cardiology consult.. 5. Lactic acidosis secondary to heart failure.. 6. Chronic atrial fibrillation. Continue eliquis 2.5 mg twice daily and Coreg 6.25 mg twice daily. 7. History of coronary artery disease. Continue Plavix, Lipitor. 8. Hyperlipidemia. Continue Lipitor/statin. 9. Ischemic cardiomyopathy status post AICD. 10. DVT prophylaxis. Eliquis. 11. GI prophylaxis. Protonix. Patient will be admitted to the hospital for a minimum of 2 night stay. Discharge plan: To be determined. PT and OT consults. Impression and plan of care have been directed as dictated by the signing physician. Lovely Henriquez nurse practitioner acting as scribe for signing physician. Past Medical History Past Medical History: Atrial Fibrillation, Coronary Artery Disease (CAD), Heart Failure, Hyperlipidemia, Hypertension, Myocardial Infarction ([place]), Osteoarthritis (OA), Prostate Disorder Additional Past Medical History / Comment(s): HAVING OCC SHORTNESS OF BREATH. SEE DR ALCAZAR H&P. HX BPH; KIDNEY STONE. states his kidney function has decreased. [employer] is the name of his defibrillator. Last Myocardial Infarction Date:: 2013 History of Any Multi-Drug Resistant Organisms: None Reported Past Surgical History: AICD, Bowel Resection, Heart Catheterization With Stent, Orthopedic Surgery Additional Past Surgical History / Comment(s): 03/2013 AICD. RT ROTATOR CUFF, RT KNEE SCOPE. cataract surgery. recent heart cath completed at [facility] [place] [place] 2017 Past Anesthesia/Blood Transfusion Reactions: No Reported Reaction Date of Last Stent Placement:: 2001 Type of Cardiac Device: AICD Device Placement Date:: 04/17/13 Past Psychological History: No Psychological Hx Reported Smoking Status: Never smoker Past Alcohol Use History: Rare Past Drug Use History: None Reported - Past Family History Mother Family Medical History: Cancer Additional Family Medical History / Comment(s): Breast Medications and Allergies Home Medications Medication Instructions Recorded Confirmed Type Multivitamin [Men's Multi-Vitamin] 0.5 tab PO DAILY 06/01/14 12/11/19 History Torsemide [Demadex] 20 mg PO DAILY 05/25/17 12/11/19 History Nitroglycerin Sl Tabs [Nitrostat] 0.4 mg SL Q5M PRN 07/31/17 12/11/19 History Sacubitril/Valsartan [Entresto 24 0.5 tab PO DAILY 07/31/17 12/11/19 History mg-26 mg Tablet] Clopidogrel [Plavix] 75 mg PO DAILY #30 tab 08/02/17 12/11/19 Rx Calcitriol [Rocaltrol] 0.5 mcg PO SA 12/11/19 12/11/19 History Co Q-10(Unknown Dose) 1 cap PO HS 12/11/19 12/11/19 History Ergocalciferol [Vitamin D2] 50,000 unit PO Q30D 12/11/19 12/11/19 History Flaxseed Oil 1,000 mg PO BID 12/11/19 12/11/19 History Saw [place] 320mg 320 mg PO BID 12/11/19 12/11/19 History Vitamin B Complex/Folic Acid 0.2 mg PO Q48H 12/11/19 12/11/19 History [Vitamin B Complex Tablet] allopurinoL [Zyloprim] 300 mg PO DAILY 12/11/19 12/11/19 History carvediloL [Coreg] 3.125 mg PO DAILY 12/11/19 12/11/19 History Allergies Allergy/AdvReac Type Severity Reaction Status Date / Time No Known Allergies Allergy Verified 12/11/19 23:23 Physical Exam Vitals: Vital Signs Temp Pulse Resp BP Pulse Ox 12/12/19 05:57 97.9 F 100 19 90/72 100 12/12/19 03:47 108 H 16 110/98 98 12/12/19 02:10 90 18 122/102 99 12/11/19 23:00 97.7 F 90 18 107/85 98 12/11/19 20:20 98 12/11/19 20:00 85 12/11/19 19:45 98 12/11/19 19:30 26 H 12/11/19 19:16 97.0 F L 103 H 38 H 115/71 98 Intake and Output 12/11/19 12/12/19 12/12/19 22:59 06:59 14:59 Other: Weight 74.843 kg Results CBC & Chem 7: 12/11/19 22:01 12/11/19 22:01 Labs: Abnormal Lab Results - Last 24 Hours (Table) 12/11/19 12/11/19 12/11/19 Range/Units 22:01 22:01 22:01 Plt Count 140 L (150-450) k/uL Lymphocytes # 0.9 L (1.0-4.8) k/uL PT 14.6 H (9.0-12.0) sec INR 1.5 H (<1.2) APTT 30.7 H (22.0-30.0) sec Sodium 134 L (137-145) mmol/L Carbon Dioxide 17 L (22-30) mmol/L BUN 98 H (9-20) mg/dL Creatinine 2.58 H (0.66-1.25) mg/dL Glucose 129 H (74-99) mg/dL Plasma Lactic Acid Frank (0.7-2.0) mmol/L Magnesium 2.6 H (1.6-2.3) mg/dL Total Bilirubin 2.5 H (0.2-1.3) mg/dL AST 69 H (17-59) U/L ALT 134 H (4-49) U/L Alkaline Phosphatase 158 H (38-126) U/L Troponin I (0.000-0.034) ng/mL 12/11/19 12/11/19 12/12/19 Range/Units 22:01 22:01 00:58 Plt Count (150-450) k/uL Lymphocytes # (1.0-4.8) k/uL PT (9.0-12.0) sec INR (<1.2) APTT (22.0-30.0) sec Sodium (137-145) mmol/L Carbon Dioxide (22-30) mmol/L BUN (9-20) mg/dL Creatinine (0.66-1.25) mg/dL Glucose (74-99) mg/dL Plasma Lactic Acid Frank 3.4 H* (0.7-2.0) mmol/L Magnesium (1.6-2.3) mg/dL Total Bilirubin (0.2-1.3) mg/dL AST (17-59) U/L ALT (4-49) U/L Alkaline Phosphatase (38-126) U/L Troponin I 0.108 H* 0.107 H* (0.000-0.034) ng/mL 12/12/19 12/12/19 12/12/19 Range/Units 00:58 04:18 04:18 Plt Count (150-450) k/uL Lymphocytes # (1.0-4.8) k/uL PT (9.0-12.0) sec INR (<1.2) APTT (22.0-30.0) sec Sodium (137-145) mmol/L Carbon Dioxide (22-30) mmol/L BUN (9-20) mg/dL Creatinine (0.66-1.25) mg/dL Glucose (74-99) mg/dL Plasma Lactic Acid Frank 2.4 H* 2.8 H* (0.7-2.0) mmol/L Magnesium (1.6-2.3) mg/dL Total Bilirubin (0.2-1.3) mg/dL AST (17-59) U/L ALT (4-49) U/L Alkaline Phosphatase (38-126) U/L Troponin I 0.119 H* (0.000-0.034) ng/mL 12/12/19 Range/Units 08:10 Plt Count (150-450) k/uL Lymphocytes # (1.0-4.8) k/uL PT (9.0-12.0) sec INR (<1.2) APTT (22.0-30.0) sec Sodium (137-145) mmol/L Carbon Dioxide (22-30) mmol/L BUN (9-20) mg/dL Creatinine (0.66-1.25) mg/dL Glucose (74-99) mg/dL Plasma Lactic Acid Frank 2.3 H* (0.7-2.0) mmol/L Magnesium (1.6-2.3) mg/dL Total Bilirubin (0.2-1.3) mg/dL AST (17-59) U/L ALT (4-49) U/L Alkaline Phosphatase (38-126) U/L Troponin I (0.000-0.034) ng/mL
--- NOTE | 2019-12-12 12:30 | CONS ---
CONSULTATION CHIEF COMPLAINT: Shortness of breath. HISTORY OF PRESENT ILLNESS: Maximo is an 84-year-old gentleman with history of ischemic cardiomyopathy with severe LV systolic dysfunction, chronic systolic heart failure, permanent atrial fibrillation, mitral regurgitation and aortic stenosis, who presented to hospital with worsening shortness of breath. It is mild to moderate intensity at rest and has gotten progressively worse. He also has mild bilateral leg edema. His lab show that the troponin is mildly elevated at 0.1. BNP is elevated at 9960. An EKG showed that he is in atrial fibrillation with intraventricular conduction delay. A chest x-ray showed congestive heart failure. An echocardiogram that was being performed was evaluated by me at bedside and shows ischemic cardiomyopathy with evidence of prior inferior wall myocardial infarction with severe LV systolic dysfunction. I am treating the patient with intravenous diuretics. Put him on Eliquis for his atrial fibrillation. Continue Lipitor, Plavix, Lasix and Entresto that he is on. PAST MEDICAL HISTORY: Significant for coronary artery disease, ischemic cardiomyopathy with severe LV dysfunction, chronic systolic heart failure status post AICD and mitral regurgitation. MEDICATIONS: Medications at home include Coreg, Zyloprim, Demadex and Crestor, flaxseed oil, Plavix and Rocaltrol. ALLERGIES: No known drug allergies. FAMILY HISTORY: Negative for premature coronary artery disease. SOCIAL HISTORY: Negative for smoking, EtOH abuse, or drug abuse. REVIEW OF SYSTEMS: HEENT is unremarkable. Cardiac as described above. Respiratory as described above. GI negative. negative. ALLERGY none. Skin negative. Musculoskeletal significant for arthritis. Psychosocial negative. Derm negative. Constitutional negative. Oncological negative. [employer]INCIPAL negative. Rest of the system review is not relevant. PHYSICAL EXAMINATION: On exam, patient is comfortable at rest. Afebrile. Heart rate is 93 beats per minute. Blood pressure is 100/88, respiratory rate 18, O2 saturation is 96% on 3 L. There is no jugular venous distention. Chest exam reveals diminished air entry at the bases. Heart exam reveals first and second heart sounds and a pansystolic murmur at the apex. ABDOMEN: Soft. Exam of extremities did not reveal any edema. Peripheral pulses are felt. LABS: Show that the hemoglobin is 14.6, platelet count is 140. Creatinine is 2.5, BUN is 98. Tropes are mildly elevated at 0.1 and 0.1. BNP is elevated at 9960. ASSESSMENT: 1. Acute exacerbation of chronic systolic heart failure. 2. Ischemic cardiomyopathy status post AICD. 3. Coronary artery disease. 4. Severe mitral regurgitation. 5. Elevated troponin secondary to renal failure. 6. Permanent atrial fibrillation. PLAN: We will treat the patient with IV Lasix. I will adjust the medications as needed. MMODL / IJN: [id number] /
[2019-12-12] MEDS ORDERED: RIVAROXABAN 15 MG TAB PO SCH (17:30)
--- NOTE | 2019-12-12 19:18 | ECHOF ---
Referral Reason:chf MEASUREMENTS -------- HEIGHT: 172.7 cm WEIGHT: 74.8 kg BP: 90/72 RVIDd: 4.4 cm (< 3.3) IVSd: 1.3 cm (0.6 - 1.1) LVIDd: 6.1 cm (3.9 - 5.3) LVPWd: 1.5 cm (0.6 - 1.1) IVSs: 1.6 cm LVIDs: 5.7 cm LVPWs: 1.6 cm LA Diam: 4.4 cm (2.7 - 3.8) LAESV Index (A-L): 57.88 ml/m Ao Diam: 3.6 cm (2.0 - 3.7) AV Cusp: 1.5 cm (1.5 - 2.6) MV EXCURSION: 10.694 mm (> 18.000) MV EF SLOPE: 24 mm/s (70 - 150) EPSS: 2.4 cm AV maxP.94 mmHg AV meanP.08 mmHg AR PHT: 816 ms RAP: 15.00 mmHg RVSP: 58.95 mmHg FINDINGS -------- This was a technically good study. The left ventricle is mildly dilated. There is moderate concentric left ventricular hypertrophy. Overall left ventricular systolic function is severely impaired with, an EF < 20%. The right ventricle is severely enlarged. LA is severely dilated >40 ml/m2 The right atrium is normal in size. Interatrial and interventricular septum intact. There is mild aortic valve sclerosis. There is mild aortic regurgitation. There is [id number] raudel aortic stenosis present. Peak/mean gradient across the Aortic Valve is 9.94mmHg / 5.08mmHg. A OV area by plenimetry 10 mm The mitral valve leaflets are mildly thickened. Mild mitral regurgitation is present. Moderate tricuspid regurgitation present. There is severe pulmonary hypertension. The right ventr icular systolic pressure, as measured by Doppler, is 58.95mmHg. Trace/mild (physiologic) pulmonic regurgitation. The aortic root size is normal. The inferior vena cava is dilated with no significant inspiratory collapse which is consistent estima nehemias right atrial pressure of >15 mmHg. There is no pericardial effusion. CONCLUSIONS -------- 1. The left ventricle is mildly dilated. 2. There is moderate concentric left ventricular hypertrophy. 3. Overall left ventricular systolic function is severely impaired with, an EF < 20%. 4. The right ventricle is severely enlarged. 5. LA is severely dilated >40 ml/m2 6. There is mild aortic valve sclerosis. 7. There is mild aortic regurgitation. 8. There is [id number] aortic stenosis present. 9. Peak/mean gradient across the Aortic Valve is 9.94mmHg / 5.08mmHg. 10. AOV area by plenimetry 10 mm 11. The mitral valve leaflets are mildly thickened. 12. Mild mitral regurgitation is present. 13. Moderate tricuspid regurgitation present. 14. There is severe pulmonary hypertension. 15. The right ventricular systolic pressure, as measured by Doppler, is 58.95mmHg. 16. Trace/mild (physiologic) pulmonic regurgitation. 17. The inferior vena cava is dilated with no significant inspiratory collapse which is consistent es timated right atrial pressure of >15 mmHg. 18. There is no pericardial effusion. SHIPPING SPECIALIST: Yvette Dixon RDCS
[2019-12-12] MEDS: ATORVASTATIN 10 MG TAB PO SCH ×2 (19:39→19:50)
[2019-12-13 01:47] LABS: Appearance,Urine Cloudy (Clear); Bacteria,Urine Occasional /hpf; Bilirubin,Urine Negative (Negative); Blood,Urine Negative (Negative); Color,Urine Yellow; Glucose,Urine (UA) Negative (Negative); Hyaline Casts,Urine 29 /lpf (0-2); Ketones,Urine Negative (Negative); Leukocyte Esterase,Urine Moderate (Negative); Mucus,Urine Rare /hpf; Nitrite,Urine Negative (Negative); Protein,Urine 1+ (Negative); RBC,Urine 3 /hpf (0-5); Specific Gravity,Urine 1.009 (1.001-1.035); Squamous Epithelial Cell,Urine <1 /hpf (0-4); Urobilinogen,Urine <2.0 mg/dL (<2.0); WBC,Urine 8 /hpf (0-5)
[2019-12-13] MEDS: carvediloL 6.25 MG TAB PO SCH ×2 (06:35→16:52)
[2019-12-13] MEDS: PANTOPRAZOLE 40 MG TABLET PO SCH (06:35)
[2019-12-13] MEDS: APIXABAN 2.5 MG TABLET PO SCH ×2 (07:58→19:41)
[2019-12-13] MEDS: allopurinoL 300 MG TAB PO SCH (07:58)
[2019-12-13] MEDS: FUROSEMIDE 10 MG/ML 4 ML VIAL IV SCH (07:58)
[2019-12-13] MEDS: SACUBITRIL/VALSARTAN 24 MG-26 MG TABLET PO SCH (07:59)
[2019-12-13] MEDS: CLOPIDOGREL 75 MG TAB PO SCH (07:59)
[2019-12-13 08:23] LABS: HCT 44.7 % (39.0-53.0); HGB 14.1 gm/dL (13.0-17.5); Hypochromasia Moderate; MCH 31.5 pg (25.0-35.0); MCHC 31.6 g/dL (31.0-37.0); MCV 99.8 fL (80.0-100.0); Macrocytosis Slight; Mean Platelet Volume 11.1; Platelet Count 112 k/uL (150-450); RBC 4.48 m/uL (4.30-5.90)
[2019-12-13 08:37] LABS: Albumin 3.8 g/dL (3.5-5.0); Calcium 9.2 mg/dL (8.4-10.2); Potassium 4.1 mmol/L (3.5-5.1); Total Bilirubin 3.1 mg/dL (0.2-1.3); Total Protein 6.1 g/dL (6.3-8.2)
--- NOTE | 2019-12-13 11:20 | P.PN ---
Subjective Progress Note Date: 12/13/19 This is an 84-year-old male patient of Dr. Mendez and Dr. 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 Patient states that he has had shortness of breath is gradually been worsening over the past 2 weeks. Patient states his breathing is improved since he arrived. He complains of feeling uncomfortable on the ER stretcher. Patient came into [facility] emergency center for evaluation. Chest x-ray reveals congestive heart failure and pulmonary edema new compared to old exam. WBC 8.9, hemoglobin 14.6, platelet count 140. INR 1.5. Sodium 134, CO2 17, BUN 98 creatinine 2.58. Blood sugar 129. Lactic acid 3.4. Magnesium 2.6, total bilirubin 2.5, AST 69, ALT 134, alkaline phosphatase 158. Troponins were elevated at 0.108, 0.107, 0.119. Patient was started on IV Lasix and increase to 40 mg every [address] Gutierrez. Home medications have been resumed. REVIEW OF SYSTEMS Constitutional: No fever, no chills, no night sweats. No weight change. No weakness, fatigue or lethargy. No daytime sleepiness. EENT: No headache. No blurred vision or double vision, no loss of vision. No loss of Hearing, no ringing in the ears, no dizziness. No nasal drainage or congestion. No epistaxis. No sore throat. Lungs: Reports shortness of breath, cough, no sputum production. No wheezing. Cardiovascular: No chest pain, reports lower extremity edema. No palpitations. No paroxysmal nocturnal dyspnea. Reports orthopnea. No lightheadedness or dizziness. No syncopal episodes. Abdominal: No abdominal pain. No nausea, vomiting. No diarrhea. No constipation. No bloody or tarry stools. No loss of appetite. Genitourinary: No dysuria, increased frequency, urgency. No urinary retention. Musculoskeletal: No myalgias. No muscle weakness, no gait dysfunction, no frequent falls. No back pain. No neck pain. Integumentary: No wounds, no lesions. No rash or pruritus. No unusual bruising. No change in hair or nails. Neurologic: No aphasia. No facial droop. No change in mentation. No head injury. No headache. No paralysis. No paresthesia. Psychiatric: No depression. No anxiety. No mood swings. Endocrine: No abnormal blood sugars. No weight change. No excessive sweating or thirst. No cold intolerance. PHYSICAL EXAMINATION Gen: This is an 84-year-old male. He is resting on the ER stretcher and appears to be comfortable. No acute respiratory distress noted. HEENT: Head is atraumatic, normocephalic. Pupils equal, round. Sclerae is anicteric. Oral mucous membranes are dry. NECK: Supple. No JVD. No lymphadenopathy. No thyromegaly. LUNGS: Diminished to the bilat bases. No wheezes or rhonchi. No intercostal retractions. HEART: Regular rate and rhythm. Systolic murmur at the apex. ABDOMEN: Soft. Bowel sounds are present. No masses. No tenderness. Chronic Meza catheter with leg bag in place. EXTREMITIES: Trace bilateral pedal edema. No calf tenderness. NEUROLOGICAL: Patient is awake, alert and oriented x3. Cranial nerves 2 through 12 are grossly intact. ASSESSMENT AND PLAN 1. Acute on chronic systolic heart failure. Patient is on Lasix IV 40 mg every 8 hours. Consult with cardiology appreciated. Monitor I&O and daily weights. Monitor renal function and electrolytes. Continue Coreg 6.25 mg twice daily and Entresto daily. Echocardiogram conclusion: EF less than 20%, severely dilated LA, moderate to severe aortic stenosis, moderate tricuspid regurgitation, severe pulmonary hypertension 2. Acute kidney injury with chronic kidney disease stage 4. Consult with nephrology. 3. Chronic urinary retention with chronic Meza catheter. 4. Elevated troponins, possible non-ST elevated myocardial infarction. Cardiology consult appreciated. 5. Lactic acidosis secondary to heart failure.. 6. Chronic atrial fibrillation. Continue eliquis 2.5 mg twice daily and Coreg 6.25 mg twice daily. 7. History of coronary artery disease. Continue Plavix, Lipitor. 8. Hyperlipidemia. Continue Lipitor/statin. 9. Ischemic cardiomyopathy status post AICD. 10. DVT prophylaxis. Eliquis. 11. GI prophylaxis. Protonix. Patient will be admitted to the hospital for a minimum of 2 night stay. Discharge plan: To be determined. PT and OT consults. is requesting home with homecare Impression and plan of care have been directed as dictated by the signing physician. Christel Howard nurse practitioner acting as scribe for signing physician. Objective - Vital Signs Vital signs: Vital Signs Temp 97.5 F L 12/13/19 03:36 Pulse 71 12/13/19 07:40 Resp 18 12/13/19 07:40 BP 110/68 12/13/19 07:40 Pulse Ox 97 12/13/19 07:40 Intake & Output 12/12/19 12/13/19 12/13/19 18:59 06:59 18:59 Intake Total 600 160 120 Output Total 525 665 Balance 75 -505 120 Weight 74.843 kg 75.5 kg Intake: IV 10 Invasive Line 1 10 Oral 600 150 120 Output: Urine 525 665 Other: Voiding Method Indwelling Catheter Indwelling Catheter Indwelling Catheter # Voids 1 - Labs CBC & Chem 7: 12/13/19 07:51 12/13/19 07:51 Labs: Abnormal Lab Results - Last 24 Hours (Table) 12/12/19 12/12/19 12/12/19 Range/Units 11:25 14:34 17:46 Plt Count (150-450) k/uL Sodium (137-145) mmol/L Chloride (98-107) mmol/L Carbon Dioxide (22-30) mmol/L BUN (9-20) mg/dL Creatinine (0.66-1.25) mg/dL Glucose (74-99) mg/dL Plasma Lactic Acid Frank 2.1 H* 2.7 H* 3.3 H* (0.7-2.0) mmol/L Total Bilirubin (0.2-1.3) mg/dL AST (17-59) U/L ALT (4-49) U/L Alkaline Phosphatase (38-126) U/L Total Protein (6.3-8.2) g/dL Urine Protein (Negative) Ur Leukocyte Esterase (Negative) Urine WBC (0-5) /hpf Urine Bacteria (None) /hpf Hyaline Casts (0-2) /lpf Urine Mucus (None) /hpf 12/13/19 12/13/19 12/13/19 Range/Units 01:15 07:51 07:51 Plt Count 112 L (150-450) k/uL Sodium 131 L (137-145) mmol/L Chloride 96 L (98-107) mmol/L Carbon Dioxide 21 L (22-30) mmol/L BUN 99 H (9-20) mg/dL Creatinine 2.68 H (0.66-1.25) mg/dL Glucose 129 H (74-99) mg/dL Plasma Lactic Acid Frank (0.7-2.0) mmol/L Total Bilirubin 3.1 H (0.2-1.3) mg/dL AST 68 H (17-59) U/L ALT 120 H (4-49) U/L Alkaline Phosphatase 147 H (38-126) U/L Total Protein 6.1 L (6.3-8.2) g/dL Urine Protein 1+ H (Negative) Ur Leukocyte Esterase Moderate H (Negative) Urine WBC 8 H (0-5) /hpf Urine Bacteria Occasional H (None) /hpf Hyaline Casts 29 H (0-2) /lpf Urine Mucus Rare H (None) /hpf Microbiology - Last 24 Hours (Table) 12/11/19 22:01 Blood Culture - Preliminary Blood No Growth after 24 hours
--- NOTE | 2019-12-13 12:01 | PN ---
PROGRESS NOTE Maximo is an 84-year-old gentleman with ischemic cardiomyopathy with severe LV dysfunction, severe mitral regurgitation, atrial fibrillation, who is admitted to the hospital with acute exacerbation of chronic systolic heart failure. We treated him with intravenous diuretics. This morning, he is feeling better. Shortness of breath has improved. Does not have any leg edema. He is on Eliquis 2.5 b.i.d., Lipitor 10 daily, Coreg 6.25 b.i.d., Plavix 75 daily, Lasix 40 IV 2 8h and Entresto. EXAM: Heart rate is 70 beats per minute. Blood pressure is 110/60. Respirations 18. O2 saturation is 97% on 2 L. There is no jugular venous distention. Chest exam reveals good air entry bilaterally. Heart exam reveals first and second heart sounds. No gallop. He has a systolic murmur at the apex. ABDOMEN: Soft. Exam of extremities did not reveal any edema. Peripheral pulses are felt. LABS: Show that the potassium is 4.1, BUN is 99, creatinine is 2.6, hemoglobin is 14.1, platelet count is 112. The patient had a run of nonsustained VT. ASSESSMENT: 1. Acute exacerbation of chronic systolic heart failure. 2. Acute exacerbation of chronic renal failure secondary to volume depletion. PLAN: I am going to cut back on the Lasix to 40 mg IV daily and check electrolytes in the morning. He will continue the Entresto that he is on. MMODL / IJN: [id number] /
[2019-12-13 12:18] VITALS: BMI 25.2
[2019-12-13] MEDS: ATORVASTATIN 10 MG TAB PO SCH (19:32)
[2019-12-14] MEDS: PANTOPRAZOLE 40 MG TABLET PO SCH (07:01)
[2019-12-14 07:26] LABS: Calcium 8.9 mg/dL (8.4-10.2); Magnesium 2.4 mg/dL (1.6-2.3); Potassium 4.3 mmol/L (3.5-5.1)
[2019-12-14] MEDS ORDERED: FUROSEMIDE 10 MG/ML 4 ML VIAL IV SCH (09:00)
[2019-12-14] MEDS: APIXABAN 2.5 MG TABLET PO SCH ×2 (09:15→21:13)
[2019-12-14] MEDS: allopurinoL 300 MG TAB PO SCH (09:15)
[2019-12-14] MEDS: CLOPIDOGREL 75 MG TAB PO SCH (09:15)
[2019-12-14] MEDS: SACUBITRIL/VALSARTAN 24 MG-26 MG TABLET PO SCH (09:15)
[2019-12-14] MEDS: carvediloL 3.125 MG TAB PO SCH (09:15)
--- NOTE | 2019-12-14 09:25 | XR ---
EXAMINATION TYPE: XR chest 1V portable DATE OF EXAM: 12/14/2019 COMPARISON: Prior chest x-ray 12/11/2019 HISTORY: Heart failure TECHNIQUE: Single frontal view of the chest is obtained. FINDINGS: The heart is enlarged, there are intracardiac defibrillator leads. No pneumothorax or pleu ral effusion. There is improved aeration as compared to prior exam. Aorta is dense. IMPRESSION: Improvement in aeration, volume status. Persistent cardiomegaly.
[2019-12-14] MEDS ORDERED: TORSEMIDE 20 MG TAB PO SCH (11:30)
--- NOTE | 2019-12-14 11:40 | P.PN ---
Subjective Progress Note Date: 12/14/19 This is an 84-year-old male patient of Dr. Mendez and Dr. 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 Patient states that he has had shortness of breath is gradually been worsening over the past 2 weeks. Patient states his breathing is improved since he arrived. He complains of feeling uncomfortable on the ER stretcher. Patient came into [facility] emergency center for evaluation. Chest x-ray reveals congestive heart failure and pulmonary edema new compared to old exam. WBC 8.9, hemoglobin 14.6, platelet count 140. INR 1.5. Sodium 134, CO2 17, BUN 98 creatinine 2.58. Blood sugar 129. Lactic acid 3.4. Magnesium 2.6, total bilirubin 2.5, AST 69, ALT 134, alkaline phosphatase 158. Troponins were elevated at 0.108, 0.107, 0.119. Patient was started on IV Lasix and increase to 40 mg every [address] Gutierrez. Home medications have been resumed. 12/13: Patient is resting in bed in no acute distress. During the evening patient had an episode of low blood pressure. Patient takes carvedilol 3.125 mg daily and he is given the dose to twice a day. Patient also refuses his Lipitor related to his kidney function. Patient is unable to the bathroom with assist minimally. He declines any subacute rehab at this time. Patient was found to have a temperature of 95.4 rectally. There was placed. Potassium 4.3, BUN 109, creatinine 2.83. Urine was negative. Chest x-ray today shows improvement in aeration and volume status. REVIEW OF SYSTEMS Constitutional: No fever, no chills, no night sweats. No weight change. No weakness, fatigue or lethargy. No daytime sleepiness. EENT: No headache. No blurred vision or double vision, no loss of vision. No loss of Hearing, no ringing in the ears, no dizziness. No nasal drainage or congestion. No epistaxis. No sore throat. Lungs: Reports shortness of breath, cough, no sputum production. No wheezing. Cardiovascular: No chest pain, reports lower extremity edema. No palpitations. No paroxysmal nocturnal dyspnea. Reports orthopnea. No lightheadedness or dizziness. No syncopal episodes. Abdominal: No abdominal pain. No nausea, vomiting. No diarrhea. No constipati on. No bloody or tarry stools. No loss of appetite. Genitourinary: No dysuria, increased frequency, urgency. No urinary retention. Musculoskeletal: No myalgias. No muscle weakness, no gait dysfunction, no frequent falls. No back pain. No neck pain. Integumentary: No wounds, no lesions. No rash or pruritus. No unusual bruising. No change in hair or nails. Neurologic: No aphasia. No facial droop. No change in mentation. No head injury. No headache. No paralysis. No paresthesia. Psychiatric: No depression. No anxiety. No mood swings. Endocrine: No abnormal blood sugars. No weight change. No excessive sweating or thirst. No cold intolerance. PHYSICAL EXAMINATION Gen: This is an 84-year-old male. He is resting on the ER stretcher and appears to be comfortable. No acute respiratory distress noted. HEENT: Head is atraumatic, normocephalic. Pupils equal, round. Sclerae is anicteric. Oral mucous membranes are dry. NECK: Supple. No JVD. No lymphadenopathy. No thyromegaly. LUNGS: Diminished to the bilat bases. No wheezes or rhonchi. No intercostal retractions. HEART: Regular rate and rhythm. Systolic murmur at the apex. ABDOMEN: Soft. Bowel sounds are present. No masses. No tenderness. Chronic Meza catheter with leg bag in place. EXTREMITIES: Trace bilateral pedal edema. No calf tenderness. NEUROLOGICAL: Patient is awake, alert and oriented x3. Cranial nerves 2 through 12 are grossly intact. ASSESSMENT AND PLAN 1. Acute on chronic systolic heart failure. Patient is on Lasix IV 40 mg daily. Consult with cardiology appreciated. Monitor I&O and daily weights. Monitor renal function and electrolytes. Change Abraham to 3.25 daily and Entresto daily. Echocardiogram conclusion: EF less than 20%, severely dilated LA, moderate to severe aortic stenosis, moderate tricuspid regurgitation, severe pulmonary hypertension 2. Acute kidney injury with chronic kidney disease stage 4. Consult with n ephrology. 3. Chronic urinary retention with chronic Meza catheter. 4. Elevated troponins, possible non-ST elevated myocardial infarction. Cardiology consult appreciated. 5. Lactic acidosis secondary to heart failure.. 6. Chronic atrial fibrillation. Continue eliquis 2.5 mg twice daily and Coreg 6.25 mg twice daily. 7. History of coronary artery disease. Continue Plavix, Lipitor. 8. Hyperlipidemia. Continue Lipitor/statin. 9. Ischemic cardiomyopathy status post AICD. 10. DVT prophylaxis. Eliquis. 11. GI prophylaxis. Protonix. Patient will be admitted to the hospital for a minimum of 2 night stay. Discharge plan: To be determined. PT and OT consults. is requesting home with homecare Impression and plan of care have been directed as dictated by the signing physician. Christel Howard nurse practitioner acting as scribe for signing physician. Objective - Vital Signs Vital signs: Vital Signs Temp 97.6 F 12/14/19 04:00 Pulse 71 12/14/19 08:00 Resp 20 12/14/19 08:00 BP 109/75 12/14/19 08:00 Pulse Ox 95 12/14/19 04:00 Intake & Output 12/13/19 12/14/19 12/14/19 18:59 06:59 18:59 Intake Total 600 150 120 Output Total 650 400 200 Balance -50 -250 -80 Weight 75.5 kg 61 kg Intake: Oral 600 150 120 Output: Urine 650 400 200 Other: Voiding Method Indwelling Catheter Indwelling Catheter - Labs CBC & Chem 7: 12/13/19 07:51 12/14/19 06:35 Labs: Abnormal Lab Results - Last 24 Hours (Table) 12/13/19 12/14/19 Range/Units 07:51 06:35 Sodium 128 L (137-145) mmol/L Chloride 96 L (98-107) mmol/L Carbon Dioxide 21 L (22-30) mmol/L BUN 109 H* (9-20) mg/dL Creatinine 2.83 H (0.66-1.25) mg/dL Glucose 118 H (74-99) mg/dL Magnesium 2.6 H 2.4 H (1.6-2.3) mg/dL Microbiology - Last 24 Hours (Table) 12/11/19 22:01 Blood Culture - Preliminary Blood No Growth after 48 hours
--- NOTE | 2019-12-14 11:52 | P.PN ---
Subjective This is a pleasant 84-year-old male past medical history significant for ischemic cardiomyopathy with severe LV dysfunction, severe mitral regurgitation and atrial fibrillation. He is seen and examined resting comfortably in bed laying flat no acute distress. His is at the bedside. He is currently receiving IV diuretics. He states his breathing has improved. He has no chest pain, dizziness or palpitations. His states last evening his blood pressure dropped into the 80s. He also had an episode of hypoxia when his oxygen was off. Room air saturations this morning are 97%. Blood pressure 109/75 heart rate 71 afebrile maintaining oxygen saturation on room air. Laboratory data reviewed, sodium 128, potassium 4.3, creatinine 2.83 and magnesium 2.4. Currently maintained on Lasix 40 mg IV daily, entresto half wit h 24/26 mg tablet daily, Plavix 75 mg daily, carvedilol 3.125 mg daily and Eliquis 2.5 mg twice a day. Repeat chest x-ray reveals improvement in aeration volume status. GENERAL: Well-appearing, well-nourished and in no acute distress. NECK: Supple without JVD or thyromegaly. LUNGS: Breath sounds clear to auscultation bilaterally. Respiration equal and unlabored. No wheezes, rales or rhonchi. HEART: Regular rate and rhythm with systolic ejection murmur at the left sternal border and apex, no rubs or gallops. S1 and S2 heard. EXTREMITIES: Normal range of motion, no edema. No clubbing or cyanosis. Peripheral pulses intact. ASSESSMENT Acute on chronic systolic heart failure Acute on chronic renal insufficiency Chronic persistent atrial fibrillation on long-term anticoagulation Ischemic cardiomyopathy status post AICD Hyponatremia Hypertension PLAN Discontinue IV diuresis and resume torsemide at home dose. Stable for discharge from a cardiac perspective. Follow-up in the office with Dr. Gutierrez 1-2 weeks. Nurse Practitioner note has been reviewed, I agree with a documented findings a nd plan of care. Patient was seen and examined. Objective - Vital Signs Vital signs: Vital Signs Temp 97.6 F 12/14/19 04:00 Pulse 71 12/14/19 08:00 Resp 20 12/14/19 08:00 BP 109/75 12/14/19 08:00 Pulse Ox 95 12/14/19 04:00 Intake & Output 12/13/19 12/14/1920 18:59 06:59 18:59 Intake Total 600 150 120 Output Total 650 400 200 Balance -50 -250 -80 Weight 75.5 kg 61 kg Intake: Oral 600 150 120 Output: Urine 650 400 200 Other: Voiding Method Indwelling Catheter Indwelling Catheter - Labs CBC & Chem 7: 12/13/19 07:51 12/14/19 06:35 Labs: Abnormal Lab Results - Last 24 Hours (Table) 12/13/19 12/14/19 Range/Units 07:51 06:35 Sodium 128 L (137-145) mmol/L Chloride 96 L (98-107) mmol/L Carbon Dioxide 21 L (22-30) mmol/L BUN 109 H* (9-20) mg/dL Creatinine 2.83 H (0.66-1.25) mg/dL Glucose 118 H (74-99) mg/dL Magnesium 2.6 H 2.4 H (1.6-2.3) mg/dL Microbiology - Last 24 Hours (Table) 12/11/19 22:01 Blood Culture - Preliminary Blood No Growth after 48 hours
[2019-12-14] MEDS: carvediloL 6.25 MG TAB PO SCH (18:22)
[2019-12-15] MEDS: PANTOPRAZOLE 40 MG TABLET PO SCH (06:52)
[2019-12-15] MEDS: CLOPIDOGREL 75 MG TAB PO SCH (08:36)
[2019-12-15] MEDS: SACUBITRIL/VALSARTAN 24 MG-26 MG TABLET PO SCH (08:36)
[2019-12-15] MEDS: TORSEMIDE 20 MG TAB PO SCH (08:36)
[2019-12-15] MEDS: allopurinoL 300 MG TAB PO SCH (08:36)
[2019-12-15] MEDS: carvediloL 3.125 MG TAB PO SCH (08:36)
[2019-12-15] MEDS: APIXABAN 2.5 MG TABLET PO SCH ×2 (08:37→21:00)
[2019-12-15 10:46] LABS: Calcium 8.8 mg/dL (8.4-10.2); Magnesium 2.4 mg/dL (1.6-2.3)
--- NOTE | 2019-12-15 11:26 | P.DS ---
Providers Date of admission: 12/13/19 15:28 Expected date of discharge: 12/15/19 Attending physician: Horace Matias Consults: 12/11/19 22:47 Consult Physician Routine Consulting Provider: Chirag Gutierrez Consult Reason/Comments: CHF Do you want consulting provider notified?: Yes 12/14/19 11:39 Consult Physician Routine Consulting Provider: Kenia Monk Consult Reason/Comments: CKD stage 4 Do you want consulting provider notified?: Yes Primary care physician: Maximo GarciaVanessa [facility] Course: This is an 84-year-old male patient of Dr. Mendez and Dr. Mitch Guiterrez with a past medical history of chronic atrial fibrillation, coronary artery disease with stent, chronic systolic heart failure, severe mitral regurgitation, ischemic cardiomyopathy status post AICD, hypertension, hyperlipidemia, generalized osteoarthritis, chronic urinary retention with chronic Meza catheter, chronic kidney disease. Patient states that he has had shortness of breath is gradually been worsening over the past 2 weeks. Patient states his breathing is improved since he arrived. He complains of feeling uncomfortable on the ER stretcher. Patient came into [facility] emergency center for evaluation. Chest x-ray reveals congestive heart failure and pulmonary edema new compared to old exam. WBC 8.9, hemoglobin 14.6, platelet count 140. INR 1.5. Sodium 134, CO2 17, BUN 98 creatinine 2.58. Blood sugar 129. Lactic acid 3.4. Magnesium 2.6, total bilirubin 2.5, AST 69, ALT 134, alkaline phosphatase 158. Troponins were elevated at 0.108, 0.107, 0.119. Patient was started on IV Lasix and increase to 40 mg every [address] Gutierrez. Home medications have been resumed. 12/13: Patient is resting in bed in no acute distress. During the evening patient had an episode of low blood pressure. Patient takes carvedilol 3.125 mg daily and he is given the dose to twice a day. Patient also refuses his Lipitor related to his kidney function. Patient is unable to the bathroom with assist minimally. He declines any subacute rehab at this time. Patient was found to have a temperature of 95.4 rectally. There was placed. Potassium 4.3, BUN 109, creatinine 2.83. Urine was negative. Chest x-ray today shows improvement in aeration and volume status. 12/14: Patient was cleared for discharge yesterday by cardiology. Patient is quite dyspneic today. His states he has had a cough is nonproductive and worse at nighttime. She is concerned that he also has some obstructive sleep apnea. Noted that his lips are dusky today. Respiratory rate is increased and accessory muscle usage. Discussed plan with patient's and she states that her children have noticed that the patient has been much worse. She would like to take him home with oxygen along with home care and palliative care. Discussed option of hospice care and she understands that she can transition easily to hospice if necessary. Patient will be discharged home today in stable condition. He has been afebrile, heart rate 81, blood pressure 108/68. Repeat blood work reveals sodium 126, potassium 4.0, chloride 94, CO2 20, BUN 108, creatinine 2.82. Blood sugar 148. Magnesium 2.4. ASSESSMENT AND PLAN 1. Acute on chronic systolic heart failure with EF less than 20%, severely dilated LA. 2. Acute kidney injury with chronic kidney disease stage 4. 3. Chronic urinary retention with chronic Meza catheter. 4. Elevated troponins secondary to renal failure. 5. Lactic acidosis secondary to heart failure.. 6. Chronic persistent atrial fibrillation. 7. History of coronary artery disease. 8. Hyperlipidemia. 9. Ischemic cardiomyopathy status post AICD. 10. Valvular heart disease with moderate to severe aortic stenosis, moderate tricuspid regurgitation, and severe pulmonary hypertension Discharge plan: home with homecare and palliative care Impression and plan of care have been directed as dictated by the signing physi ravi. Lovely Henriquez nurse practitioner acting as scribe for signing physician. Patient Condition at Discharge: Fair Plan - Discharge Summary Discharge Rx Participant: No New Discharge Prescriptions: New Apixaban [Eliquis] 2.5 mg PO BID #60 tablet Pantoprazole [Protonix] 40 mg PO AC-BRKFST tablet. Continue Multivitamin [Men's Multi-Vitamin] 0.5 tab PO DAILY Torsemide [Demadex] 20 mg PO DAILY Nitroglycerin Sl Tabs [Nitrostat] 0.4 mg SL Q5M PRN PRN Reason: Chest Pain Sacubitril/Valsartan [Entresto 24 mg-26 mg Tablet] 0.5 tab PO DAILY Clopidogrel [Plavix] 75 mg PO DAILY #30 tab Vitamin B Complex/Folic Acid [Vitamin B Complex Tablet] 0.2 mg PO Q48H Flaxseed Oil 1,000 mg PO BID Calcitriol [Rocaltrol] 0.5 mcg PO SA carvediloL [Coreg] 3.125 mg PO DAILY allopurinoL [Zyloprim] 300 mg PO DAILY Saw Lapaz 320mg 320 mg PO BID Co Q-10(Unknown Dose) 1 cap PO HS Ergocalciferol [Vitamin D2 (DRISDOL)] 50,000 unit PO Q30D Discharge Medication List Multivitamin [Men's Multi-Vitamin] 0.5 tab PO DAILY 06/01/14 [History] Torsemide [Demadex] 20 mg PO DAILY 05/25/17 [History] Nitroglycerin Sl Tabs [Nitrostat] 0.4 mg SL Q5M PRN 07/31/17 [History] Sacubitril/Valsartan [Entresto 24 mg-26 mg Tablet] 0.5 tab PO DAILY 07/31/17 [History] Clopidogrel [Plavix] 75 mg PO DAILY #30 tab 08/02/17 [Rx] Calcitriol [Rocaltrol] 0.5 mcg PO SA 12/11/19 [History] Co Q-10(Unknown Dose) 1 cap PO HS 12/11/19 [History] Ergocalciferol [Vitamin D2 (DRISDOL)] 50,000 unit PO Q30D 12/11/19 [History] Flaxseed Oil 1,000 mg PO BID 12/11/19 [History] Saw Lapaz 320mg 320 mg PO BID 12/11/19 [History] Vitamin B Complex/Folic Acid [Vitamin B Complex Tablet] 0.2 mg PO Q48H 12/11/19 [History] allopurinoL [Zyloprim] 300 mg PO DAILY 12/11/19 [History] carvediloL [Coreg] 3.125 mg PO DAILY 12/11/19 [History] Apixaban [Eliquis] 2.5 mg PO BID #60 tablet 12/15/19 [Rx] Pantoprazole [Protonix] 40 mg PO AC-BRKFST tablet. 12/15/19 [Rx] Follow up Appointment(s)/Referral(s): Maximo Mendez DO [Primary Care Provider] - 1 Week Chirag Gutierrez MD [STAFF PHYSICIAN] - 1 Week Discharge Disposition: HOME WITH HOME HEALTH SERVICES
--- NOTE | 2019-12-15 12:20 | P.NPCON ---
History of Present Illness - Reason for Consult acute renal failure, chronic renal failure - History of Present Illness reason for consultation: Acute kidney injury on chronic kidney disease History of present illness: Patient is a 84-year-old male seen in renal consultation for acute kidney injury and chronic kidney disease. Patient has chronic kidney disease stage III with baseline creatinine near 2. Patient presented to the hospital for shortness of breath. Patient was diuresed with IV Lasix and is now maintained on torsemide 20 mg once daily. Dyspnea has improved from admission. Denies chest pain. Patient is noted to have ejection fraction of less than 20% with moderate tricuspid regurgitation and severe pulmonary hypertension. Denies use of nonsteroidals. No vomiting or diarrhea. Creatinine peaked at 2.83 yesterday and is stable at 2.82 today. Sodium level is trending down and was 126 this morning. has a Meza catheter. Nonoliguric. no hematuria or dysuria. No history of diabetes. denies black or bloody stools. Vital signs are stable. General: The patient appeared well nourished and normally developed. HEENT: Head exam is unremarkable. Neck is without jugular venous distension. LUNGS: breath sounds decreased. HEART: Rate and Rhythm are regular. ABDOMEN: soft, nontender. EXTREMITITES: trace edema. Past Medical History Past Medical History: Atrial Fibrillation, Coronary Artery Disease (CAD), Heart Failure, Hyperlipidemia, Hypertension, Myocardial Infarction ([place]), Osteoarthritis (OA), Prostate Disorder Additional Past Medical History / Comment(s): HAVING OCC SHORTNESS OF BREATH. SEE DR ALCAZAR H&P. HX BPH; KIDNEY STONE. states his kidney function has decreased. [employer] is the name of his defibrillator. Last Myocardial Infarction Date:: 2013 History of Any Multi-Drug Resistant Organisms: None Reported Past Surgical History: AICD, Bowel Resection, Heart Catheterization With Stent, Orthopedic Surgery Additional Past Surgical History / Comment(s): 03/2013 AICD. RT ROTATOR CUFF, RT KNEE SCOPE. cataract surgery. [place] [facility] [place] Past Anesthesia/Blood Transfusion Reactions: No Reported Reaction Date of Last Stent Placement:: 2001 Type of Cardiac Device: AICD Device Placement Date:: 04/17/13 Past Psychological History: No Psychological Hx Reported Smoking Status: Never smoker Past Alcohol Use History: Rare Past Drug Use History: None Reported - Past Family History Father Family Medical History: Diabetes Mellitus Additional Family Medical History / Comment(s): Father had diabetes later in life. Brother(s) Additional Family Medical History / Comment(s): Pt had 2 brother with diabetes. 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 Mother Family Medical History: Cancer Additional Family Medical History / Comment(s): Breast Medications and Allergies Home Medications Medication Instructions Recorded Confirmed Type Multivitamin [Men's Multi-Vitamin] 0.5 tab PO DAILY 06/01/14 12/11/19 History Torsemide [Demadex] 20 mg PO DAILY 05/25/17 12/11/19 History Nitroglycerin Sl Tabs [Nitrostat] 0.4 mg SL Q5M PRN 07/31/17 12/11/19 History Sacubitril/Valsartan [Entresto 24 0.5 tab PO DAILY 07/31/17 12/11/19 History mg-26 mg Tablet] Clopidogrel [Plavix] 75 mg PO DAILY #30 tab 08/02/17 12/11/19 Rx Calcitriol [Rocaltrol] 0.5 mcg PO SA 12/11/19 12/11/19 History Co Q-10(Unknown Dose) 1 cap PO HS 12/11/19 12/11/19 History Ergocalciferol [Vitamin D2 50,000 unit PO Q30D 12/11/19 12/11/19 History (AMISHA)] Flaxseed Oil 1,000 mg PO BID 12/11/19 12/11/19 History [place] 320mg 320 mg PO BID 12/11/19 12/11/19 History Vitamin B Complex/Folic Acid 0.2 mg PO Q48H 12/11/19 12/11/19 History [Vitamin B Complex Tablet] allopurinoL [Zyloprim] 300 mg PO DAILY 12/11/19 12/11/19 History carvediloL [Coreg] 3.125 mg PO DAILY 12/11/19 12/11/19 History Apixaban [Eliquis] 2.5 mg PO BID #60 tablet 12/15/19 Rx Pantoprazole [Protonix] 40 mg PO AC-[id number] tablet. 12/15/19 Rx Allergies Allergy/AdvReac Type Severity Reaction Status Date / Time No Known Allergies Allergy Verified 12/11/19 23:23 Physical Exam Vitals: Vital Signs Temp Pulse Resp BP BP Pulse Ox 12/15/19 12:00 98.2 F 69 20 98/64 97 12/15/19 08:29 97.4 F L 81 18 108/68 98 12/15/19 04:00 97.5 F L 65 20 104/68 96 12/15/19 00:00 97.6 F 67 19 108/71 99 12/14/19 20:00 97.4 F L 53 L 18 99/65 94 L 12/14/19 16:00 96.6 F L 71 20 100/66 98 12/14/19 12:35 97.5 F L Intake and Output 12/14/19 12/15/19 12/15/19 22:59 06:59 14:59 Intake Total 236 520 240 Output Total 1500 200 Balance -1264 320 240 Intake: Oral 236 520 240 Output: Urine 1500 200 Other: Voiding Method Indwelling Catheter Indwelling Catheter Indwelling Catheter Weight 62 kg Results - Lab Results Most recent lab results Calcium 8.8 mg/dL (8.4-10.2) 12/15/19 09:31 Magnesium 2.4 mg/dL (1.6-2.3) H 12/15/19 09:31 12/13/19 07:51 12/15/19 09:31 Assessment and Plan Plan: assessment: 1. Acute kidney injury secondary to ATN secondary to cardiorenal syndrome. Creatinine 2.82 today. 2. chronic kidney disease stage III with baseline creatinine near 2. Etiology is nephrosclerosis. 3. acute on chronic systolic CHF with ejection fraction of less than 20% with moderate tricuspid regurgitation and severe pulmonary hypertension. 4. Volume overload. Improved with diuresis. 5. Hyponatremia. Patient is hypervolemic. 6. Metabolic acidosis secondary to acute kidney injury. 7. Chronic kidney disease mineral bone disease maintained on calcitriol. plan: Maintain torsemide 20 mg once daily. low-salt diet. Advised patient to maintain 30-35 pounds fluid restriction per day. Samsca 15 mg once today. Repeat sodium level this evening. Patient will need to follow-up outpatient within 1 week. overall prognosis guarded. Patient will be going home with palliative care. Hospice has also been discussed.
[2019-12-15] MEDS: SODIUM BICARBONATE TAB 650 MG TAB PO SCH ×2 (12:32→21:00)
--- NOTE | 2019-12-15 12:39 | P.PN ---
Subjective Progress Note Date: 12/15/19 This is an 84-year-old gentleman who follows with Dr. Parker in the office. He has a past medical history significant for ischemic cardiomyopathy and documented ejection fraction of less than 20%, chronic persistent atrial fibrillation, coronary artery disease with prior stenting, chronic systolic congestive heart failure, severe mitral regurgitation which was found in 2017 at which time patient underwent a SUMAN, AICD, hypertension, hyperlipidemia, osteoarthritis, chronic urinary retention, chronic kidney disease. Presented to the hospital with symptoms of worsening shortness of breath. He was diuresed on IV Lasix. Yesterday he states that he felt considerably better however this morning the patient was very short of breath, hardly able to talk. Just trying to walk from his bed to the window the patient became too short of breath to make it. His echocardiogram with Doppler study which was performed here showed an ejection fraction of less than 20%, it also showed moderate to severe aortic stenosis however the peak/mean gradient across the aortic valve was 9.9 over 5.0. AOV area by plenimetry was 10 mm. Mild mitral regurg documented and moderate tricuspid regurg as well as severe pulmonary hypertension. I did get an echo over from the office to review, this was performed in September of this year, revealed an ejection fraction of 25%, moderate to severe mitral regurgitation moderate aortic regurg and moderate aortic stenosis. Blood pressure this morning 98/60 with a heart rate in the 60s, 97% on 2 L of oxygen. Laboratory data was reviewed today, sodium down to 126, potassium 4.0, BUN 108, creatinine 2.8, magnesium 2.4. Objective - Vital Signs Vital signs: Vital Signs Temp 97.4 F L 12/15/19 08:29 Pulse 81 12/15/19 08:29 Resp 18 12/15/19 08:29 BP 108/68 12/15/19 08:29 Pulse Ox 98 12/15/19 08:29 Intake & Output 12/14/19 12/15/19 12/15/19 18:59 06:59 18:59 Intake Total 446 520 240 Output Total 1500 400 Balance -1054 120 240 Weight 62 kg Intake: Oral 446 520 240 Output: Urine 1500 400 Other: Voiding Method Indwelling Catheter Indwelling Catheter Indwelling Catheter - Exam Gen: This is an 84-year-old male. Quite short of breath even with speaking. HEENT: Head is atraumatic, normocephalic. Pupils equal, round. Sclerae is anicteric. Oral mucous membranes are dry. NECK: Supple. Elevated JVD. No lymphadenopathy. No thyromegaly. LUNGS: Diminished to the bilat bases. No wheezes or rhonchi. No intercostal retractions. HEART: Regular rate and rhythm. Systolic murmur at the apex. ABDOMEN: Soft. Bowel sounds are present. No masses. No tenderness. Chronic Meza catheter with leg bag in place. EXTREMITIES: Trace bilateral pedal edema. No calf tenderness. NEUROLOGICAL: Patient is awake, alert and oriented x3. Cranial nerves 2 through 12 are grossly intact. - Labs CBC & Chem 7: 12/13/19 07:51 12/15/19 09:31 Labs: Microbiology - Last 24 Hours (Table) 12/11/19 22:01 Blood Culture - Preliminary Blood No Growth after 72 hours Assessment and Plan Plan: ASSESSMENT AND PLAN #1. Acute on chronic systolic heart failure. Patient currently on by mouth diuretics. Continue Coreg 6.25 mg twice daily and Entresto daily. #2. Acute kidney injury with chronic kidney disease stage 4. BUN 108, creatinine 2.8 #3. Chronic urinary retention with chronic Meza catheter. #4 Severe mitral regurgitation documented by SUMAN in 2018 as well as echo performed in September in the office. Possible moderate to severe aortic stenosis #5. Lactic acidosis secondary to heart failure.. #6. Chronic atrial fibrillation. Continue eliquis 2.5 mg twice daily #7. History of coronary artery disease. Continue Plavix, Lipitor. #8. Hyperlipidemia. #9. Ischemic cardiomyopathy status post AICD. #10 hyponatremia, sodium [address] Rivero will have a discussion with Dr. Gutierrez regarding the patient, he appears to be much more short of breath today. We will also review the echocardiogram with Doppler study. Check labs in the morning. Further recommendations to follow. DNP note has been reviewed, I agree with a documented findings and plan of care. Patient was seen and examined.
[2019-12-15] MEDS ORDERED: TOLVAPTAN 15 MG 1/2 TABLET PO ONE (13:00)
[2019-12-15] MEDS ORDERED: MORPHINE CONC SOLN 10mg/0.5mL ORAL SYRG SL PRN (18:55)
[2019-12-16] MEDS: PANTOPRAZOLE 40 MG TABLET PO SCH (06:32)
[2019-12-16] MEDS: TORSEMIDE 20 MG TAB PO SCH (08:36)
[2019-12-16] MEDS: SODIUM BICARBONATE TAB 650 MG TAB PO SCH (08:37)
[2019-12-16] MEDS: carvediloL 3.125 MG TAB PO SCH (08:37)
[2019-12-16] MEDS: CLOPIDOGREL 75 MG TAB PO SCH (08:37)
[2019-12-16] MEDS: SACUBITRIL/VALSARTAN 24 MG-26 MG TABLET PO SCH (08:37)
[2019-12-16] MEDS: APIXABAN 2.5 MG TABLET PO SCH (08:38)
[2019-12-16 08:39] LABS: Calcium 8.7 mg/dL (8.4-10.2); Magnesium 2.5 mg/dL (1.6-2.3)
[2019-12-16] MEDS ORDERED: allopurinoL 100 MG TAB PO SCH (09:00)
--- NOTE | 2019-12-16 09:56 | P.PN ---
Subjective patient is seen in follow-up for acute kidney injury and chronic kidney disease. Renal function better. Sodium level also improved. Maintained on oral torsemide. Patient is quite lethargic. Family present at bedside. Plan for discharge home today with hospice. Vital signs are stable. General: The patient appeared well nourished and normally developed. HEENT: Head exam is unremarkable. Neck is without jugular venous distension. LUNGS: Breath sounds decreased. HEART: Rate and Rhythm are regular. ABDOMEN: soft, nontender. EXTREMITITES: No edema. Objective - Vital Signs Vital signs: Vital Signs Temp 96.9 F L 12/16/19 04:00 Pulse 67 12/16/19 04:00 Resp 24 12/16/19 04:00 BP 98/54 12/16/19 04:00 Pulse Ox 93 L 12/16/19 04:00 Intake & Output 12/15/19 12/16/19 12/16/19 18:59 06:59 18:59 Intake Total 875 100 120 Output Total 500 300 Balance 375 -200 120 Weight 61.8 kg Intake: Oral 875 100 120 Output: Urine 500 300 Other: Voiding Method Indwelling Catheter Indwelling Catheter # Bowel Movements 0 - Labs CBC & Chem 7: 12/13/19 07:51 12/16/19 07:39 Labs: Abnormal Lab Results - Last 24 Hours (Table) 12/15/19 12/15/19 12/16/19 Range/Units 09:31 16:52 07:39 Sodium 126 L 126 L 130 L (137-145) mmol/L Chloride 94 L (98-107) mmol/L Carbon Dioxide 20 L 19 L (22-30) mmol/L BUN 108 H* 101 H* (9-20) mg/dL Creatinine 2.82 H 2.44 H (0.66-1.25) mg/dL Glucose 148 H 123 H (74-99) mg/dL Magnesium 2.4 H 2.5 H (1.6-2.3) mg/dL Microbiology - Last 24 Hours (Table) 12/11/19 22:01 Blood Culture - Preliminary Blood No Growth after 96 hours Assessment and Plan Plan: assessment: 1. Acute kidney injury secondary to ATN secondary to cardiorenal syndrome. Creatinine 2.44 today. 2. chronic kidney disease stage III with baseline creatinine near 2. Etiology is nephrosclerosis. 3. acute on chronic systolic CHF with ejection fraction of less than 20% with moderate tricuspid regurgitation and severe pulmonary hypertension. 4. Volume overload. Improved with diuresis. 5. Hyponatremia. Patient is hypervolemic. better. status post [facility] December 14. 6. Metabolic acidosis secondary to acute kidney injury maintained on oral sodium bicarbonate. 7. Chronic kidney disease mineral bone disease maintained on calcitriol. plan: Maintain torsemide 20 mg once daily. low-salt diet. Advised patient to maintain 30-35 pounds fluid restriction per day. overall prognosis guarded. Patient will be going home with palliative care/hospice.
[2019-12-16 14:26] VITALS: BP 108/65; PULSE 60; RESP 22; TEMP 97.5
--- NOTE | 2019-12-16 14:29 | P.PN ---
Subjective Progress Note Date: 12/15/19 This is an 84-year-old male patient of Dr. Mendez and Dr. 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 Patient states that he has had shortness of breath is gradually been worsening over the past 2 weeks. Patient states his breathing is improved since he arrived. He complains of feeling uncomfortable on the ER stretcher. Patient came into [facility] emergency center for evaluation. Chest x-ray reveals congestive heart failure and pulmonary edema new compared to old exam. WBC 8.9, hemoglobin 14.6, platelet count 140. INR 1.5. Sodium 134, CO2 17, BUN 98 creatinine 2.58. Blood sugar 129. Lactic acid 3.4. Magnesium 2.6, total bilirubin 2.5, AST 69, ALT 134, alkaline phosphatase 158. Troponins were elevated at 0.108, 0.107, 0.119. Patient was started on IV Lasix and increase to 40 mg every [address] Gutierrez. Home medications have been resumed. 12/13: Patient is resting in bed in no acute distress. During the evening patient had an episode of low blood pressure. Patient takes carvedilol 3.125 mg daily and he is given the dose to twice a day. Patient also refuses his Lipitor related to his kidney function. Patient is unable to the bathroom with assist minimally. He declines any subacute rehab at this time. Patient was found to have a temperature of 95.4 rectally. There was placed. Potassium 4.3, BUN 109, creatinine 2.83. Urine was negative. Chest x-ray today shows improvement in aeration and volume status. 12/14: Patient was cleared for discharge yesterday by cardiology. Patient is quite dyspneic today. His states he has had a cough is nonproductive and worse at nighttime. She is concerned that he also has some obstructive sleep apnea. Noted that his lips are dusky today. Respiratory rate is increased and accessory muscle usage. Discussed plan with patient's and she states that her children have noticed that the patient has been much worse. She would like to take him home with oxygen along with home care and palliative care. Discussed option of hospice care and she understands that she can transition e asily to hospice if necessary. Patient will be discharged home today in stable condition. He has been afebrile, heart rate 81, blood pressure 108/68. Repeat blood work reveals sodium 126, potassium 4.0, chloride 94, CO2 20, BUN 108, creatinine 2.82. Blood sugar 148. Magnesium 2.4. [facility] meeting arranged. REVIEW OF SYSTEMS Constitutional: No fever, no chills, no night sweats. No weight change. No weakness, fatigue or lethargy. No daytime sleepiness. EENT: No headache. No blurred vision or double vision, no loss of vision. No loss of Hearing, no ringing in the ears, no dizziness. No nasal drainage or congestion. No epistaxis. No sore throat. Lungs: Reports shortness of breath, cough, no sputum production. No wheezing. Cardiovascular: No chest pain, reports lower extremity edema. No palpitations. No paroxysmal nocturnal dyspnea. Reports orthopnea. No lightheadedness or dizziness. No syncopal episodes. Abdominal: No abdominal pain. No nausea, vomiting. No diarrhea. No constipation. No bloody or tarry stools. No loss of appetite. Genitourinary: No dysuria, increased frequency, urgency. No urinary retention. Musculoskeletal: No myalgias. No muscle weakness, no gait dysfunction, no frequent falls. No back pain. No neck pain. Integumentary: No wounds, no lesions. No rash or pruritus. No unusual bruising. No change in hair or nails. Neurologic: No aphasia. No facial droop. No change in mentation. No head injury. No headache. No paralysis. No paresthesia. Psychiatric: No depression. No anxiety. No mood swings. Endocrine: No abnormal blood sugars. No weight change. No excessive sweating or thirst. No cold intolerance. PHYSICAL EXAMINATION Gen: This is an 84-year-old male. He is resting on the ER stretcher and appears to be comfortable. No acute respiratory distress noted. HEENT: Head is atraumatic, normocephalic. Pupils equal, round. Sclerae is anicteric. Oral mucous membranes are dry. NECK: Supple. No JVD. No lymphadenopathy. No thyromegaly. LUNGS: Diminished to the bilat bases. No wheezes or rhonchi. No intercostal retractions. HEART: Regular rate and rhythm. Systolic murmur at the apex. ABDOMEN: Soft. Bowel sounds are present. No masses. No tenderness. Chronic Meza catheter with leg bag in place. EXTREMITIES: Trace bilateral pedal edema. No calf tenderness. NEUROLOGICAL: Patient is awake, alert and oriented x3. Cranial nerves 2 through 12 are grossly intact. ASSESSMENT AND PLAN 1. Acute on chronic systolic heart failure. Patient is on torsemide. Consult with cardiology appreciated. Monitor I&O and daily weights. Monitor renal function and electrolytes. Echocardiogram conclusion: EF less than 20%, severely dilated LA, moderate to severe aortic stenosis, moderate tricuspid regurgitation, severe pulmonary hypertension 2. Acute kidney injury with with ATN secondary to cardiorenal syndrome, chronic kidney disease stage 4. Consult with nephrology. 3. Chronic urinary retention with chronic Meza catheter. 4. Elevated troponins, possible non-ST elevated myocardial infarction. Cardiology consult appreciated. 5. Lactic acidosis secondary to heart failure.. 6. Chronic atrial fibrillation. Continue eliquis 2.5 mg twice daily and Coreg 6.25 mg twice daily. 7. History of coronary artery disease. Continue Plavix, Lipitor. 8. Hyperlipidemia. Continue Lipitor/statin. 9. Ischemic cardiomyopathy status post AICD. 10. DVT prophylaxis. Eliquis. 11. GI prophylaxis. Protonix. Discharge plan: home with hospice Impression and plan of care have been directed as dictated by the signing physician. Lovely Henriquez nurse practitioner acting as scribe for signing physician. Objective - Vital Signs Vital signs: Vital Signs Temp 97.4 F L 12/15/19 08:29 Pulse 81 12/15/19 08:29 Resp 18 12/15/19 08:29 BP 108/68 12/15/19 08:29 Pulse Ox 98 12/15/19 08:29 Intake & Output 12/14/19 12/15/19 12/15/19 18:59 06:59 18:59 Intake Total 446 520 Output Total 1500 400 Balance -1054 120 Weight 62 kg Intake: Oral 446 520 Output: Urine 1500 400 Other: Voiding Method Indwelling Catheter Indwelling Catheter - Labs CBC & Chem 7: 12/13/19 07:51 12/16/19 07:39 Labs: Microbiology - Last 24 Hours (Table) 12/11/19 22:01 Blood Culture - Preliminary Blood No Growth after 72 hours
--- NOTE | 2019-12-16 14:52 | P.PN ---
Subjective Progress Note Date: 12/16/19 This is an 84-year-old gentleman who follows with Dr. Parker in the office. He has a past medical history significant for ischemic cardiomyopathy and documented ejection fraction of less than 20%, chronic persistent atrial fibrillation, coronary artery disease with prior stenting, chronic systolic congestive heart failure, severe mitral regurgitation which was found in 2017 at which time patient underwent a SUMAN, AICD, hypertension, hyperlipidemia, osteoarthritis, chronic urinary retention, chronic kidney disease. Presented to the hospital with symptoms of worsening shortness of breath. He was diuresed on IV Lasix. Yesterday he states that he felt considerably better however this morning the patient was very short of breath, hardly able to talk. Just trying to walk from his bed to the window the patient became too short of breath to make it. His echocardiogram with Doppler study which was performed here showed an ejection fraction of less than 20%, it also showed moderate to severe aortic stenosis however the peak/mean gradient across the aortic valve was 9.9 over 5.0. AOV area by plenimetry was 10 mm. Mild mitral regurg documented and moderate tricuspid regurg as well as severe pulmonary hypertension. I did get an echo over from the office to review, this was performed in September of this year, revealed an ejection fraction of 25%, moderate to severe mitral regurgitation moderate aortic regurg and moderate aortic stenosis. Blood pressure this morning 98/60 with a heart rate in the 60s, 97% on 2 L of oxygen. Laboratory data was reviewed today, sodium down to 126, potassium 4.0, BUN 108, creatinine 2.8, magnesium 2.4. 12/16/2019 Patient was seen and examined this morning, appears that his breathing today is slightly improved. Him and his have agreed to speak with hospice today, the plan is for him to be discharged home with hospice care today. Blood p ressure 108/60 with a heart rate in the 60s, 97% on room air. Sodium 1:30, potassium 4.0, BUN 101, creatinine 2.4, magnesium 2.5. Objective - Vital Signs Vital signs: Vital Signs Temp 97.5 F L 12/16/19 11:50 Pulse 60 12/16/19 11:50 Resp 22 12/16/19 11:50 BP 108/65 12/16/19 11:50 Pulse Ox 97 12/16/19 11:50 Intake & Output 12/15/19 12/16/19 12/16/19 18:59 06:59 18:59 Intake Total 875 100 120 Output Total 500 300 Balance 375 -200 120 Weight 61.8 kg Intake: Oral 875 100 120 Output: Urine 500 300 Other: Voiding Method Indwelling Catheter Indwelling Catheter Indwelling Catheter # Bowel Movements 0 - Exam Gen: This is an 84-year-old male. Quite short of breath even with speaking. HEENT: Head is atraumatic, normocephalic. Pupils equal, round. Sclerae is anicteric. Oral mucous membranes are dry. NECK: Supple. Elevated JVD. No lymphadenopathy. No thyromegaly. LUNGS: Diminished to the bilat bases. No wheezes or rhonchi. No intercostal retractions. HEART: Regular rate and rhythm. Systolic murmur at the apex. ABDOMEN: Soft. Bowel sounds are present. No masses. No tenderness. Chronic Meza catheter with leg bag in place. EXTREMITIES: Trace bilateral pedal edema. No calf tenderness. NEUROLOGICAL: Patient is awake, alert and oriented x3. Cranial nerves 2 through 12 are grossly intact. - Labs CBC & Chem 7: 12/13/19 07:51 12/16/19 07:39 Labs: Abnormal Lab Results - Last 24 Hours (Table) 12/15/19 12/16/19 Range/Units 16:52 07:39 Sodium 126 L 130 L (137-145) mmol/L Carbon Dioxide 19 L (22-30) mmol/L BUN 101 H* (9-20) mg/dL Creatinine 2.44 H (0.66-1.25) mg/dL Glucose 123 H (74-99) mg/dL Magnesium 2.5 H (1.6-2.3) mg/dL Microbiology - Last 24 Hours (Table) 12/11/19 22:01 Blood Culture - Preliminary Blood No Growth after 96 hours Assessment and Plan Plan: ASSESSMENT AND PLAN #1. Acute on chronic systolic heart failure. Patient currently on by mouth diuretics. Continue Coreg 6.25 mg twice daily and Entresto daily. #2. Acute kidney injury with chronic kidney disease stage 4. BUN 108, creatinine 2.8 #3. Chronic urinary retention with chronic Meza catheter. #4 Severe mitral regurgitation documented by SUMAN in 2017 as well as echo performed in September in the office. Possible moderate to severe aortic stenosis #5. Lactic acidosis secondary to heart failure.. #6. Chronic atrial fibrillation. Continue eliquis 2.5 mg twice daily #7. History of coronary artery disease. Continue Plavix, Lipitor. #8. Hyperlipidemia. #9. Ischemic cardiomyopathy status post AICD. #10 hyponatremia, sodium 126 today Plan The plan is for the patient to be discharged with hospice care. We will follow him along with you now on an as-needed basis only, please don't hesitate to call if you have any questions at all. DNP note has been reviewed, I agree with a documented findings and plan of care. Patient was seen and examined.
== END 2019-12-16 16:34 | disposition hospice, home (50) | DRG 291 ==
LOC: EC 19:14 → 3SCARD 22:46 → OBSVTOIN 12-13 15:28
PROVIDERS: ADMIT Internal Medicine Geriatric Medicine; ATTEND Internal Medicine Geriatric Medicine
DX: I13.0 Hypertensive heart and chronic kidney disease with heart failure and stage 1 through stage 4 chronic kidney disease, or unspecified chronic kidney disease (principal); I50.23 Acute on chronic systolic (congestive) heart failure; N17.0 Acute kidney failure with tubular necrosis; N18.4 Chronic kidney disease, stage 4 (severe); I48.21 Permanent atrial fibrillation; E87.2 Acidosis; E87.1 Hypo-osmolality and hyponatremia; I27.20 Pulmonary hypertension, unspecified; I25.5 Ischemic cardiomyopathy; Z51.5 Encounter for palliative care; I25.10 Atherosclerotic heart disease of native coronary artery without angina pectoris; E83.89 Other disorders of mineral metabolism; R33.8 Other retention of urine; E86.9 Volume depletion, unspecified; I45.9 Conduction disorder, unspecified; M15.9 Polyosteoarthritis, unspecified; E78.5 Hyperlipidemia, unspecified; N40.1 Benign prostatic hyperplasia with lower urinary tract symptoms; G47.33 Obstructive sleep apnea (adult) (pediatric); I08.3 Combined rheumatic disorders of mitral, aortic and tricuspid valves; I25.2 Old myocardial infarction; Z87.442 Personal history of urinary calculi; Z79.899 Other long term (current) drug therapy; Z79.02 Long term (current) use of antithrombotics/antiplatelets; Z79.01 Long term (current) use of anticoagulants; Z95.810 Presence of automatic (implantable) cardiac defibrillator; Z90.49 Acquired absence of other specified parts of digestive tract; Z95.5 Presence of coronary angioplasty implant and graft; Z87.891 Personal history of nicotine dependence; Z98.890 Other specified postprocedural states; Z83.3 Family history of diabetes mellitus; Z80.1 Family history of malignant neoplasm of trachea, bronchus and lung; Z80.3 Family history of malignant neoplasm of breast
CPT/HCPCS: 36415; 71045; 71046; 80048; 80053; 81001; 83605; 83735; 83880; 84295; 84484; 85025; 85027; 85610; 85730; 87040; 93005; 93306; 94640; 96374; 96376; 99285